=== PATIENT | male | born 1940 | race Caucasian/White ===

== ENCOUNTER → 2016-07-09 | Outpatient (CLI) | payer MEDICARE, OTHER ==
[~2016-07-09] MED LIST: ASPI-492 OR; CALCTAB25 PO; CHOL20007 PO; CILO100T OR; CLOP75TA28 OR; FURO20TA3 OR; IOHEXOL 350 MG/ML 100ML IJ ONE; MAGN400T5 PO; MULTTAB OR; OMEG120017 OR; POTA10TA34 PO; ROSU10TA16 OR
[2016-07-09 09:15] VITALS: BP 199/97
[2016-07-09 09:50] VITALS: BP 181/87
== END | disposition home or self-care (01) ==
LOC: Rad HDHVI 08:54
PROVIDERS: ATTEND Internal Medicine Cardiovascular Disease
DX: M25.562 Pain in left knee (principal); I73.9 Peripheral vascular disease, unspecified; I10 Essential (primary) hypertension; I25.10 Atherosclerotic heart disease of native coronary artery without angina pectoris; R10.9 Unspecified abdominal pain
CPT/HCPCS: 73562; 75635; 96374; G0463; Q9967

== ENCOUNTER → 2016-10-22 | Outpatient (CLI) | payer MEDICARE, OTHER ==
[~2016-10-22] MED LIST changes: -IOHEXOL 350 MG/ML 100ML IJ ONE; +POTA20TA53 PO
[2016-10-22 08:25] VITALS: BP 162/94
[2016-10-22 09:00] VITALS: BP 161/90
[2016-10-22 12:13] LABS: Basophils # (auto) 0 uL; Basophils % (auto) 0.6 % (0.0-2.0); Eosinophils # (auto) 0.1 uL; Eosinophils % (auto) 2.4 % (0.0-7.0); Hematocrit 43.4 % (41.0-53.0); Hemoglobin 14.3 g/dL (13.5-17.5); Lymphocytes # (auto) 0.7 uL; Lymphocytes % (auto) 11.1 % (10.0-50.0); Mean Corpuscular Hemoglobin 29.2 pg (28.0-32.0); Mean Corpuscular Hgb Conc. 32.9 g/dL (32.0-36.0); Mean Corpuscular Volume 88.8 fL (80.0-100.0); Mean Platelet Volume 8.2 fL (7.4-10.4); Monocytes # (auto) 0.4 uL; Monocytes % (auto) 6.8 % (0.0-12.0); Neutrophils # (auto) 4.9 uL; Neutrophils % (auto) 79.1 % (37.0-80.0); Platelet Count (auto) 185 10^3/uL (140-450); Red Cell Distribution Width 14.6 % (11.6-16.0); White Blood Cell 6.2 10^3/uL (4.4-10.8)
[2016-10-22 12:18] LABS: INR 0.98 (0.9-1.15); Partial Thromboplastin Time 29.3 sec (22.64-33.71); Prothrombin Time 10.7 sec (9.37-12.3)
[2016-10-22 12:38] LABS: BUN/Creatinine Ratio 36.9; Calcium 7.9 mg/dL (8.5-10.1)
== END | disposition home or self-care (01) ==
LOC: Rad HDHVI 08:04
PROVIDERS: ATTEND Internal Medicine Cardiovascular Disease
DX: I10 Essential (primary) hypertension (principal); D64.9 Anemia, unspecified; R79.1 Abnormal coagulation profile; Z01.812 Encounter for preprocedural laboratory examination
CPT/HCPCS: 36415; 71020; 80048; 85025; 85610; 85730; 93005; G0463

== ENCOUNTER 2016-10-23 09:01 | Day surgery (SDC) | payer MEDICARE, OTHER ==
[~2016-10-23 09:01] MED LIST changes: -ASPI-492 OR; -CILO100T OR; -POTA20TA53 PO
[2016-10-23] MEDS ORDERED: LIDOCAINE 2%HCL (LOCAL ANESTH.) INJ 20ML MDV ONE (09:56)
[2016-10-23] MEDS ORDERED: IOHEXOL 350 MG/ML 100ML IJ ONE (09:56)
[2016-10-23] MEDS ORDERED: ANGIOMAX 250 MG VIAL IV ONE (10:35)
[2016-10-23] MEDS ORDERED: fentaNYL CITRATE 100 MCG/2 ML VL ONE (10:36)
[2016-10-23] MEDS ORDERED: SODIUM CHL 0.9% 0 ML ONE (10:36)
[2016-10-23] MEDS ORDERED: MIDAZOLAM HCL 1MG/1ML-2 ML VIAL ONE (10:36)
[2016-10-23] MEDS ORDERED: PRASUGREL HCL 10 MG TAB ONE (10:58)
[2016-10-23] MEDS ORDERED: PRASUGREL HCL 10 MG TAB PO ONE (11:30)
[2016-10-23] MEDS ORDERED: cloNIDine HCL 0.1 MG TAB PO PRN (11:30)
== END 2016-10-23 13:30 | disposition home or self-care (01) ==
LOC: CATH 09:01
PROVIDERS: ATTEND Internal Medicine Cardiovascular Disease
DX: I25.10 Atherosclerotic heart disease of native coronary artery without angina pectoris (principal); Z95.1 Presence of aortocoronary bypass graft; I73.9 Peripheral vascular disease, unspecified; I20.9 Angina pectoris, unspecified; Z87.891 Personal history of nicotine dependence
CPT/HCPCS: 36247; 75716; C1760; C1769; C1887; C1894; J1644; J2250; J3010; J7030; Q9967; 93458; 99152

== ENCOUNTER → 2017-03-31 | Outpatient (CLI) | payer MEDICARE, OTHER | END | disposition home or self-care (01) | LOC: Rad HDHVI 07:57 | PROVIDERS: ATTEND Internal Medicine Cardiovascular Disease | DX: I08.2 Rheumatic disorders of both aortic and tricuspid valves (principal); I70.0 Atherosclerosis of aorta | CPT/HCPCS: 93306 ==

== ENCOUNTER → 2017-08-25 | Outpatient (CLI) | payer MEDICARE, OTHER | END | disposition home or self-care (01) | LOC: Rad HDHVI 08:23 | PROVIDERS: ATTEND Internal Medicine Cardiovascular Disease | DX: I65.23 Occlusion and stenosis of bilateral carotid arteries (principal); R07.89 Other chest pain | CPT/HCPCS: 93880 ==

== ENCOUNTER → 2017-09-03 | Outpatient (CLI) | payer MEDICARE, OTHER ==
[~2017-09-03] VITALS: Ht 182.9 cm; Wt 54.4 kg
[2017-09-03 12:09] LABS: Basophils # (auto) 0 uL; Basophils % (auto) 0.6 % (0.0-2.0); Eosinophils # (auto) 0.2 uL; Eosinophils % (auto) 3.1 % (0.0-7.0); Hematocrit 47.9 % (41.0-53.0); Hemoglobin 15.4 g/dL (13.5-17.5); Lymphocytes # (auto) 0.6 uL; Lymphocytes % (auto) 12.8 % (10.0-50.0); Mean Corpuscular Hemoglobin 28.7 pg (28.0-32.0); Mean Corpuscular Hgb Conc. 32.2 g/dL (32.0-36.0); Monocytes # (auto) 0.5 uL; Neutrophils # (auto) 3.7 uL; Neutrophils % (auto) 73.5 % (37.0-80.0); Nucleated Red Blood Cells % 0.1 %; Platelet Count (auto) 165 10^3/uL (140-450); Red Blood Cells 5.38 10^6/uL (4.5-5.90); Red Cell Distribution Width 15.5 % (11.8-14.3)
[2017-09-03 12:11] LABS: Urine Blood Negative /uL (Negative); Urine Specific Gravity 1.015 (1.001-1.035)
[2017-09-03 12:24] LABS: Albumin 3.9 g/dL (3.4-5.0); BUN/Creatinine Ratio 15.7; Bilirubin, Total 0.6 mg/dL (0.2-1.0); Calcium 8.5 mg/dL (8.5-10.1); Total Protein 7.2 g/dL (6.4-8.2)
[2017-09-03 12:28] LABS: Prostate Specific Antigen 2.16 ng/mL (0.0-4.0)
== END | disposition home or self-care (01) ==
LOC: Rad HDHVI 07:48
PROVIDERS: ATTEND Internal Medicine Cardiovascular Disease
DX: M17.0 Bilateral primary osteoarthritis of knee (principal); E78.5 Hyperlipidemia, unspecified; D64.9 Anemia, unspecified; I10 Essential (primary) hypertension; E03.9 Hypothyroidism, unspecified; E11.9 Type 2 diabetes mellitus without complications; E55.9 Vitamin D deficiency, unspecified; R53.81 Other malaise; R97.20 Elevated prostate specific antigen [PSA]; D51.9 Vitamin B12 deficiency anemia, unspecified; N39.0 Urinary tract infection, site not specified
CPT/HCPCS: 36415; 78452; 80053; 80061; 81003; 82306; 82607; 83036; 84153; 84403; 84439; 84443; 85025; 93017; 96374; A9500

== ENCOUNTER → 2017-10-08 | Outpatient (CLI) | payer MEDICARE, OTHER ==
[2017-10-08 14:30] VITALS: BP 110/68
[2017-10-08 15:00] VITALS: BP 110/68
== END | disposition home or self-care (01) ==
LOC: CHF HDHVI 14:44
PROVIDERS: ATTEND Internal Medicine Cardiovascular Disease
DX: E78.5 Hyperlipidemia, unspecified (principal); E11.9 Type 2 diabetes mellitus without complications; I10 Essential (primary) hypertension; E03.9 Hypothyroidism, unspecified; I65.23 Occlusion and stenosis of bilateral carotid arteries; I25.119 Atherosclerotic heart disease of native coronary artery with unspecified angina pectoris; Z87.891 Personal history of nicotine dependence; Z95.1 Presence of aortocoronary bypass graft
CPT/HCPCS: 96372; G0463

== ENCOUNTER → 2017-12-30 | Outpatient (CLI) | payer MEDICARE, OTHER ==
[~2017-12-30] MED LIST changes: +LOSA25TA9 PO; -POTA10TA34 PO; +POTA1TAB61 PO
[2017-12-30 09:10] VITALS: BP 119/68
[2017-12-30 09:40] VITALS: BP 127/71
[2017-12-30 12:29] LABS: Basophils # (auto) 0 uL; Basophils % (auto) 0.7 % (0.0-2.0); Eosinophils # (auto) 0.1 uL; Eosinophils % (auto) 2.5 % (0.0-7.0); Hematocrit 38.8 % (41.0-53.0); Hemoglobin 12.8 g/dL (13.5-17.5); Lymphocytes # (auto) 0.6 uL; Lymphocytes % (auto) 10.7 % (10.0-50.0); Mean Corpuscular Volume 90.9 fL (80.0-100.0); Monocytes # (auto) 0.6 uL; Monocytes % (auto) 10.8 % (0.0-12.0); Neutrophils # (auto) 4.1 uL; Neutrophils % (auto) 75.3 % (37.0-80.0); Nucleated Red Blood Cells % 0.1 %; Platelet Count (auto) 150 10^3/uL (140-450); Red Blood Cells 4.27 10^6/uL (4.5-5.90); Red Cell Distribution Width 14.8 % (11.8-14.3); White Blood Cell 5.5 10^3/uL (4.4-10.8)
[2017-12-30 12:42] LABS: BUN/Creatinine Ratio 32.6; Calcium 8.1 mg/dL (8.5-10.1); Potassium 4.2 mmol/L (3.5-5.1)
[2017-12-30 12:48] LABS: Partial Thromboplastin Time 29.5 sec (23.78-33.04); Prothrombin Time 10.7 sec (9.27-12.13)
== END | disposition home or self-care (01) ==
LOC: Rad HDHVI 08:54
PROVIDERS: ATTEND Internal Medicine Cardiovascular Disease
DX: Z01.818 Encounter for other preprocedural examination (principal); I73.9 Peripheral vascular disease, unspecified; I25.10 Atherosclerotic heart disease of native coronary artery without angina pectoris; D64.9 Anemia, unspecified; R79.1 Abnormal coagulation profile; I10 Essential (primary) hypertension; E11.9 Type 2 diabetes mellitus without complications; E03.9 Hypothyroidism, unspecified; E78.5 Hyperlipidemia, unspecified; Z87.891 Personal history of nicotine dependence
CPT/HCPCS: 36415; 71046; 80048; 85025; 85610; 85730; 93005; G0463

== ENCOUNTER 2017-12-31 06:55 | Day surgery (SDC) | payer MEDICARE, OTHER ==
[~2017-12-31] VITALS: Ht 185.4 cm; Wt 92.5 kg
[2017-12-31] MEDS ORDERED: LIDOCAINE 2%HCL (LOCAL ANESTH.) INJ 10ml MDV ONE (08:48)
[2017-12-31] MEDS ORDERED: IODIXANOL 320MG/ML 100ML BTL IV ONE (08:48)
[2017-12-31] MEDS ORDERED: fentaNYL CITRATE 100 MCG/2 ML VL ONE (09:13)
[2017-12-31] MEDS ORDERED: ANGIOMAX 250 MG VIAL IV ONE (09:13)
[2017-12-31] MEDS ORDERED: MIDAZOLAM HCL 1MG/1ML-2 ML VIAL ONE (09:14)
[2017-12-31] MEDS ORDERED: SODIUM CHL 0.9% 0 ML ONE (09:14)
[2017-12-31] MEDS ORDERED: VERAPAMIL 2.5MG/ML INJ 2ML VIAL IV ONE (09:19)
== END 2017-12-31 11:45 | disposition home or self-care (01) ==
LOC: CATH 06:55
PROVIDERS: ATTEND Internal Medicine Cardiovascular Disease
DX: I25.119 Atherosclerotic heart disease of native coronary artery with unspecified angina pectoris (principal); I10 Essential (primary) hypertension; E78.5 Hyperlipidemia, unspecified; I73.9 Peripheral vascular disease, unspecified; Z79.899 Other long term (current) drug therapy; Z95.1 Presence of aortocoronary bypass graft; Z87.891 Personal history of nicotine dependence; Z82.61 Family history of arthritis; Z82.49 Family history of ischemic heart disease and other diseases of the circulatory system; Z98.61 Coronary angioplasty status; Z84.1 Family history of disorders of kidney and ureter
CPT/HCPCS: 93459; C1769; C1894; J1644; J2001; J2250; J3010; J7030; Q9967; 99152; 99153; A6257

== ENCOUNTER → 2018-02-02 | Outpatient (CLI) | payer MEDICARE, BC ==
[~2018-02-02] MED LIST changes: +LOSA25TA40 PO; -LOSA25TA9 PO
[2018-02-02 13:03] LABS: Calcium 8.6 mg/dL (8.5-10.1); Potassium 4.2 mmol/L (3.5-5.1)
== END | disposition home or self-care (01) ==
LOC: Rad HDHVI 09:06
PROVIDERS: ATTEND Internal Medicine Cardiovascular Disease
DX: I10 Essential (primary) hypertension (principal); R22.43 Localized swelling, mass and lump, lower limb, bilateral
CPT/HCPCS: 36415; 80048; 93926; 93970

== ENCOUNTER → 2018-05-05 | Outpatient (CLI) | payer MEDICARE, BC ==
[~2018-05-05] MED LIST changes: +FUROSEMIDE 100 MG/10ML VIAL IV ONE; +FUROSEMIDE 40 MG/4 ML VIAL ONE; +POTASSIUM CHL 10 Meq TABLET PO ONE; +POTASSIUM CHL 20 Meq TABLET PO ONE
[2018-05-05 11:10] VITALS: BP 128/68
[2018-05-05 11:24] VITALS: BP 103/67
== END | disposition home or self-care (01) ==
LOC: CHF HDHVI 11:06
PROVIDERS: ATTEND Internal Medicine Cardiovascular Disease
DX: I11.0 Hypertensive heart disease with heart failure (principal); I50.32 Chronic diastolic (congestive) heart failure; I25.119 Atherosclerotic heart disease of native coronary artery with unspecified angina pectoris; E78.5 Hyperlipidemia, unspecified; E03.9 Hypothyroidism, unspecified; E11.9 Type 2 diabetes mellitus without complications; I65.23 Occlusion and stenosis of bilateral carotid arteries; M17.0 Bilateral primary osteoarthritis of knee; E78.00 Pure hypercholesterolemia, unspecified; Z87.440 Personal history of urinary (tract) infections; Z87.442 Personal history of urinary calculi; Z98.61 Coronary angioplasty status; Z86.73 Personal history of transient ischemic attack (TIA), and cerebral infarction without residual deficits; Z79.899 Other long term (current) drug therapy; Z87.891 Personal history of nicotine dependence; Z95.1 Presence of aortocoronary bypass graft
CPT/HCPCS: 96374; G0463; J1940

== ENCOUNTER → 2018-08-23 | Outpatient (CLI) | payer MEDICARE, BC ==
[~2018-08-23] MED LIST changes: -FUROSEMIDE 100 MG/10ML VIAL IV ONE; -FUROSEMIDE 40 MG/4 ML VIAL ONE; -POTASSIUM CHL 10 Meq TABLET PO ONE; -POTASSIUM CHL 20 Meq TABLET PO ONE
== END | disposition home or self-care (01) ==
LOC: Rad HDHVI 09:59
PROVIDERS: ATTEND Internal Medicine Cardiovascular Disease
DX: I08.3 Combined rheumatic disorders of mitral, aortic and tricuspid valves (principal); I25.5 Ischemic cardiomyopathy; I50.23 Acute on chronic systolic (congestive) heart failure
CPT/HCPCS: 93306

== ENCOUNTER → 2018-08-30 | Outpatient (CLI) | payer MEDICARE, BC ==
[~2018-08-30] VITALS: Ht 182.9 cm; Wt 89.8 kg
== END | disposition home or self-care (01) ==
LOC: Rad HDHVI 09:52
PROVIDERS: ATTEND Internal Medicine Cardiovascular Disease
DX: I25.5 Ischemic cardiomyopathy (principal); E29.1 Testicular hypofunction; M25.461 Effusion, right knee; M25.462 Effusion, left knee; I73.9 Peripheral vascular disease, unspecified
CPT/HCPCS: 78452; 93017; 96374; A9500

== ENCOUNTER 2018-10-14 06:48 | Inpatient (IN) | payer MEDICARE, OTHER | END 2018-10-15 13:35 | disposition home or self-care (01) | LOC: CATH 06:48 → TELE-CENTR 12:11 | PROC: 4A023N8 Measurement of Cardiac Sampling and Pressure, Bilateral, Percutaneous Approach (ICD-10-PCS; principal; ~2018-10-14) | PROC: 02U Heart and Great Vessels, Supplement (ICD-10-PCS; ~2018-10-14) | PROC: 067 Lower Veins, Dilation (ICD-10-PCS; ~2018-10-14) | PROC: 067Y3DZ Dilation of Lower Vein with Intraluminal Device, Percutaneous Approach (ICD-10-PCS; ~2018-10-14) | PROC: B2161ZZ Fluoroscopy of Right and Left Heart using Low Osmolar Contrast (ICD-10-PCS; ~2018-10-14) | PROC: B41J1ZZ Fluoroscopy of Other Lower Arteries using Low Osmolar Contrast (ICD-10-PCS; ~2018-10-14) | DX: I25.810 Atherosclerosis of coronary artery bypass graft(s) without angina pectoris (principal); I50.22 Chronic systolic (congestive) heart failure; I73.9 Peripheral vascular disease, unspecified; I25.5 Ischemic cardiomyopathy; I11.0 Hypertensive heart disease with heart failure; E78.5 Hyperlipidemia, unspecified ==

== ENCOUNTER 2018-11-11 08:02 | Inpatient (IN) | payer MEDICARE, OTHER | END 2018-11-12 16:20 | disposition home or self-care (01) | LOC: CATH 08:02 → TELE-WESTW 08:03 | PROC: 0JH606Z Insertion of Pacemaker, Dual Chamber into Chest Subcutaneous Tissue and Fascia, Open Approach (ICD-10-PCS; principal; ~2018-11-11) | PROC: 02HK3JZ Insertion of Pacemaker Lead into Right Ventricle, Percutaneous Approach (ICD-10-PCS; ~2018-11-11) | PROC: 02H63JZ Insertion of Pacemaker Lead into Right Atrium, Percutaneous Approach (ICD-10-PCS; ~2018-11-11) | DX: I25.5 Ischemic cardiomyopathy (principal); I50.20 Unspecified systolic (congestive) heart failure; Z95.1 Presence of aortocoronary bypass graft; I11.0 Hypertensive heart disease with heart failure; E78.5 Hyperlipidemia, unspecified ==

== ENCOUNTER 2019-06-20 14:41 | Inpatient (IN) | payer MEDICARE, BC ==
[~2019-06-20] VITALS: Ht 182.9 cm; Wt 86.6 kg
[~2019-06-20 14:41] MED LIST changes: +LOSA25TA38 PO; -LOSA25TA40 PO; +MAGN400T40 PO; -MAGN400T5 PO
[2019-06-20] MEDS ORDERED: ROSU5TAB5 PO (16:48)
[2019-06-20] MEDS ORDERED: CLOP75TA41 PO (16:48)
[2019-06-20] MEDS ORDERED: TAMS1CAP25 PO (16:48)
[2019-06-20] MEDS ORDERED: TORS20TA20 PO (16:48)
[2019-06-20 17:28] VITALS: BP 98/65
[2019-06-20] MEDS ORDERED: TEMAZEPAM 15 MG CAP PO PRN (19:00)
[2019-06-20] MEDS ORDERED: DOBUTamine 1000MCG/ML 250 ML IV SCH (19:00)
[2019-06-20] MEDS ORDERED: HYDROcodone-ACET 10/325MG TAB PO PRN (19:00)
[2019-06-20] MEDS ORDERED: MORPHINE SULF INJ 2 MG/ML SYRINGE 1ML IV PRN (19:00)
[2019-06-20] MEDS ORDERED: NITROGLYCERIN 0.4 MG SL TAB SL PRN (19:00)
[2019-06-20 19:33] LABS: Basophils # (auto) 0.1 uL; Basophils % (auto) 0.8 % (0.0-2.0); Eosinophils # (auto) 0.2 uL; Eosinophils % (auto) 2.6 % (0.0-7.0); Hematocrit 39.7 % (41.0-53.0); Hemoglobin 13.4 g/dL (13.5-17.5); Lymphocytes % (auto) 15.5 % (10.0-50.0); Mean Corpuscular Hemoglobin 29.6 pg (28.0-32.0); Mean Corpuscular Hgb Conc. 33.8 g/dL (32.0-36.0); Mean Corpuscular Volume 87.6 fL (80.0-100.0); Monocytes # (auto) 0.5 uL; Neutrophils # (auto) 4.7 uL; Neutrophils % (auto) 73.1 % (37.0-80.0); Platelet Count (auto) 163 10^3/uL (140-450); Red Blood Cells 4.53 10^6/uL (4.5-5.90); Red Cell Distribution Width 13.8 % (11.8-14.3); White Blood Cell 6.4 10^3/uL (4.4-10.8)
[2019-06-20 19:49] LABS: BUN/Creatinine Ratio 25.7; Calcium 8.4 mg/dL (8.5-10.1); Potassium 3.2 mmol/L (3.5-5.1)
[2019-06-20] MEDS: FUROSEMIDE INJECTION 500 MG in D5W 5% 450 ML IV SCH (21:43)
[2019-06-20] MEDS: GABAPENTIN 300 MG CAP PO SCH (21:44)
[2019-06-20] MEDS: DOBUTamine 1000MCG/ML 250 ML IV SCH (21:44)
[2019-06-20 21:50] VITALS: BP 116/69
[2019-06-21 05:18] VITALS: BP 100/55
[2019-06-21] MEDS: DOBUTamine 1000MCG/ML 250 ML IV SCH ×2 (06:08→15:54)
[2019-06-21 09:13] VITALS: BP 100/61
[2019-06-21] MEDS: GABAPENTIN 300 MG CAP PO SCH ×2 (09:25→21:42)
[2019-06-21] MEDS: CLOPIDOGREL BISULFATE 75 MG TAB PO SCH (09:26)
[2019-06-21 13:00] VITALS: BP 107/65
[2019-06-21] MEDS ORDERED: POTASSIUM EFFERVESENT TAB 25 MEQ GT ONE (14:30)
[2019-06-21 16:01] LABS: Calcium 8.5 mg/dL (8.5-10.1); Potassium 3.6 mmol/L (3.5-5.1)
[2019-06-21 16:03] LABS: BUN/Creatinine Ratio 20.7
[2019-06-21 17:12] VITALS: BP 107/70
[2019-06-21] MEDS: FUROSEMIDE INJECTION 500 MG in D5W 5% 450 ML IV SCH (19:05)
[2019-06-21 22:00] VITALS: BP 107/64
[2019-06-22] MEDS: DOBUTamine 1000MCG/ML 250 ML IV SCH ×3 (00:52→19:06)
[2019-06-22 05:35] VITALS: BP 110/60
[2019-06-22 07:11] LABS: BUN/Creatinine Ratio 16.5; Calcium 8.8 mg/dL (8.5-10.1)
[2019-06-22] MEDS ORDERED: POTASSIUM CHL 20 Meq TABLET PO ONE (08:15)
[2019-06-22 09:00] VITALS: BP 120/76
[2019-06-22] MEDS: CLOPIDOGREL BISULFATE 75 MG TAB PO SCH (09:41)
[2019-06-22] MEDS: GABAPENTIN 300 MG CAP PO SCH ×2 (09:41→22:00)
[2019-06-22 13:00] VITALS: BP_SYST 116; BP_SYST 120; BP_DIAS 70; BP_DIAS 76
[2019-06-22 17:00] VITALS: BP 130/72
[2019-06-22] MEDS: FUROSEMIDE INJECTION 500 MG in D5W 5% 450 ML IV SCH (18:47)
[2019-06-22 22:00] VITALS: BP 118/62
[2019-06-23] MEDS: GABAPENTIN 300 MG CAP PO SCH ×3 (02:02→20:56)
[2019-06-23 05:00] VITALS: BP 120/69
[2019-06-23] MEDS: DOBUTamine 1000MCG/ML 250 ML IV SCH (05:57)
[2019-06-23 08:35] LABS: Albumin 3.9 g/dL (3.4-5.0); BUN/Creatinine Ratio 18.4; Calcium 8.4 mg/dL (8.5-10.1)
[2019-06-23 08:37] LABS: Bilirubin, Total 0.9 mg/dL (0.2-1.0); Total Protein 7.9 g/dL (6.4-8.2)
[2019-06-23] MEDS: CLOPIDOGREL BISULFATE 75 MG TAB PO SCH (08:53)
[2019-06-23 09:00] VITALS: BP 123/77
[2019-06-23 12:56] VITALS: BP 88/70
[2019-06-23] MEDS ORDERED: POTASSIUM EFFERVESENT TAB 25 MEQ PO ONE (16:30)
[2019-06-23 17:04] VITALS: BP 112/60
[2019-06-23] MEDS: FUROSEMIDE INJECTION 500 MG in D5W 5% 450 ML IV SCH (17:42)
[2019-06-23 20:00] VITALS: BP 112/60
[2019-06-23] MEDS: POTASSIUM EFFERVESENT TAB 25 MEQ PO SCH (20:56)
[2019-06-23 22:02] VITALS: BP 115/79
[2019-06-24] MEDS ORDERED: METOPROLOL SUCCINATE XL 50 MG TAB PO ONE (02:30)
[2019-06-24 05:30] VITALS: BP 100/67
[2019-06-24 09:00] VITALS: BP 106/57
[2019-06-24] MEDS: POTASSIUM EFFERVESENT TAB 25 MEQ PO SCH (09:13)
[2019-06-24] MEDS: CLOPIDOGREL BISULFATE 75 MG TAB PO SCH (09:14)
[2019-06-24] MEDS: GABAPENTIN 300 MG CAP PO SCH (09:14)
[2019-06-24] MEDS ORDERED: AMIODARONE HCL 200 MG TAB PO SCH (10:00)
[2019-06-24] MEDS ORDERED: SPIRONOLACTONE 25 MG TAB PO SCH (10:00)
[2019-06-24 12:30] VITALS: BP 86/52
[2019-06-24 13:34] VITALS: BP 133/74
== END 2019-06-24 15:30 | disposition home or self-care (01) | DRG 291 ==
LOC: CENTRAL 16:08 → TELE-CENTR 20:09
PROVIDERS: ADMIT Internal Medicine Cardiovascular Disease; ATTEND Internal Medicine Cardiovascular Disease
DX: I11.0 Hypertensive heart disease with heart failure (principal); I50.21 Acute systolic (congestive) heart failure; I48.92 Unspecified atrial flutter; D68.69 Other thrombophilia; E87.6 Hypokalemia; I48.91 Unspecified atrial fibrillation; I73.9 Peripheral vascular disease, unspecified; I27.81 Cor pulmonale (chronic); J44.9 Chronic obstructive pulmonary disease, unspecified; Z87.891 Personal history of nicotine dependence; Z95.1 Presence of aortocoronary bypass graft; Z95.810 Presence of automatic (implantable) cardiac defibrillator; I25.10 Atherosclerotic heart disease of native coronary artery without angina pectoris; E78.5 Hyperlipidemia, unspecified
CPT/HCPCS: 36415; 71045; 80048; 80053; 83880; 85025; 93005; G0378

== ENCOUNTER → 2019-07-06 | Outpatient (CLI) | payer MEDICARE, OTHER ==
[~2019-07-06] MED LIST changes: +CLOP75TA41 PO; +ROSU5TAB5 PO; +TAMS1CAP25 PO; +TORS20TA20 PO
[2019-07-06 16:18] LABS: BUN/Creatinine Ratio 15.8; Calcium 8.5 mg/dL (8.5-10.1); Potassium 3.8 mmol/L (3.5-5.1)
== END | disposition home or self-care (01) ==
LOC: LAB 15:19
PROVIDERS: ATTEND Internal Medicine Cardiovascular Disease
DX: I10 Essential (primary) hypertension (principal)
CPT/HCPCS: 36415; 80048

== ENCOUNTER → 2019-09-13 | Outpatient (CLI) | payer MEDICARE, OTHER ==
[~2019-09-13] VITALS: Ht 182.9 cm; Wt 93.0 kg
[2019-09-13 12:01] LABS: Basophils # (auto) 0 10 ^3/uL (0-0.2); Basophils % (auto) 0.4 % (0.0-2.0); Eosinophils # (auto) 0.1 10 ^3/uL (0-0.8); Eosinophils % (auto) 1.4 % (0.0-7.0); Hematocrit 43.6 % (41.0-53.0); Lymphocytes # (auto) 0.5 10 ^3/uL (0.4-5.4); Lymphocytes % (auto) 7.8 % (10.0-50.0); Mean Corpuscular Hemoglobin 28.7 pg (28.0-32.0); Mean Corpuscular Hgb Conc. 32.1 g/dL (32.0-36.0); Mean Corpuscular Volume 89.5 fL (80.0-100.0); Monocytes # (auto) 0.4 10 ^3/uL (0-1.3); Monocytes % (auto) 6.4 % (0.0-12.0); Neutrophils # (auto) 5.3 10 ^3/uL (1.6-8.6); Nucleated Red Blood Cells % 0.1 %; Platelet Count (auto) 143 10^3/uL (140-450); Red Blood Cells 4.88 10^6/uL (4.5-5.90); Red Cell Distribution Width 15.3 % (11.8-14.3); White Blood Cell 6.3 10^3/uL (4.4-10.8)
[2019-09-13 12:05] LABS: Urine Blood Negative /uL (Negative); Urine Specific Gravity 1.019 (1.001-1.035)
[2019-09-13 12:25] LABS: Albumin 3.8 g/dL (3.4-5.0); Potassium 3.6 mmol/L (3.5-5.1)
[2019-09-13 12:32] LABS: BUN/Creatinine Ratio 20.2; Bilirubin, Total 1.1 mg/dL (0.2-1.0); Calcium 8.8 mg/dL (8.5-10.1); Total Protein 7.4 g/dL (6.4-8.2)
[2019-09-13 12:35] LABS: Free T4 (Free Thyroxine) 1.77 ng/dL (0.89-1.76)
== END | disposition home or self-care (01) ==
LOC: Rad HDHVI 08:54
PROVIDERS: ATTEND Internal Medicine Cardiovascular Disease
DX: Z00.00 Encounter for general adult medical examination without abnormal findings (principal); C61 Malignant neoplasm of prostate; E11.9 Type 2 diabetes mellitus without complications; I10 Essential (primary) hypertension; I25.10 Atherosclerotic heart disease of native coronary artery without angina pectoris; K90.9 Intestinal malabsorption, unspecified; E03.9 Hypothyroidism, unspecified; E29.1 Testicular hypofunction; N39.0 Urinary tract infection, site not specified; D51.9 Vitamin B12 deficiency anemia, unspecified; R07.89 Other chest pain; Z82.49 Family history of ischemic heart disease and other diseases of the circulatory system; Z95.0 Presence of cardiac pacemaker; Z79.899 Other long term (current) drug therapy
CPT/HCPCS: 36415; 78452; 80053; 80061; 81003; 82306; 82607; 83036; 84403; 84439; 84443; 85025; 93017; 93306; 96374; A9500

== ENCOUNTER → 2019-10-31 | Outpatient (CLI) | payer MEDICARE, BC ==
[~2019-10-31] VITALS: Ht 182.9 cm; Wt 90.7 kg
[~2019-10-31] MED LIST changes: -CLOP75TA28 OR; +CLOP75TA28 PO; -FURO20TA3 OR; +FURO20TA3 PO; +GABA300C10 PO; -MULTTAB OR; +MULTTAB PO; -OMEG120017 OR; +OMEG120017 PO; -ROSU10TA16 OR; +ROSU10TA16 PO
[2019-10-31 11:30] VITALS: BP 126/79
[2019-10-31 12:00] VITALS: BP 122/76
[2019-10-31 16:00] LABS: Basophils # (auto) 0 10 ^3/uL (0-0.2); Basophils % (auto) 0.5 % (0.0-2.0); Eosinophils # (auto) 0.1 10 ^3/uL (0-0.8); Eosinophils % (auto) 1.9 % (0.0-7.0); Hematocrit 41.3 % (41.0-53.0); Hemoglobin 13.5 g/dL (13.5-17.5); Lymphocytes # (auto) 0.6 10 ^3/uL (0.4-5.4); Lymphocytes % (auto) 8.8 % (10.0-50.0); Mean Corpuscular Hemoglobin 29.2 pg (28.0-32.0); Mean Corpuscular Hgb Conc. 32.7 g/dL (32.0-36.0); Mean Corpuscular Volume 89.4 fL (80.0-100.0); Monocytes # (auto) 0.6 10 ^3/uL (0-1.3); Monocytes % (auto) 8.3 % (0.0-12.0); Neutrophils # (auto) 5.5 10 ^3/uL (1.6-8.6); Neutrophils % (auto) 80.5 % (37.0-80.0); Nucleated Red Blood Cells % 0.1 %; Platelet Count (auto) 147 10^3/uL (140-450); Red Blood Cells 4.62 10^6/uL (4.5-5.90); Red Cell Distribution Width 14.9 % (11.8-14.3); White Blood Cell 6.8 10^3/uL (4.4-10.8)
[2019-10-31 16:19] LABS: INR 1.07 (0.9-1.15); Partial Thromboplastin Time 27.7 sec (23.64-32.05)
[2019-10-31 16:45] LABS: Albumin 3.7 g/dL (3.4-5.0); Calcium 8.4 mg/dL (8.5-10.1); Potassium 4.1 mmol/L (3.5-5.1)
[2019-10-31 16:48] LABS: Bilirubin, Total 0.6 mg/dL (0.2-1.0); Total Protein 6.9 g/dL (6.4-8.2)
== END | disposition home or self-care (01) ==
LOC: Rad HDHVI 11:16
PROVIDERS: ATTEND Internal Medicine Cardiovascular Disease
DX: I70.0 Atherosclerosis of aorta (principal); Z01.812 Encounter for preprocedural laboratory examination; R05 Cough; I51.7 Cardiomegaly; Z95.1 Presence of aortocoronary bypass graft
CPT/HCPCS: 36415; 71046; 80053; 85025; 85610; 85730; 93005; G0463

== ENCOUNTER 2019-11-03 10:00 | Day surgery (SDC) | payer MEDICARE, OTHER ==
[~2019-11-03 10:00] MED LIST changes: -CLOP75TA41 PO; -LOSA25TA38 PO; +MULT-733 PO; -MULTTAB PO; -ROSU5TAB5 PO; -TORS20TA20 PO
[2019-11-03] MEDS ORDERED: MIDAZOLAM HCL 1MG/1ML-2 ML VIAL IV ONE (10:15)
[2019-11-03] MEDS ORDERED: MIDAZOLAM HCL 1MG/1ML-2 ML VIAL ONE (10:24)
[2019-11-03] MEDS ORDERED: ONDANSETRON HCL 4 MG/2 ML VIAL IV PRN (11:00)
== END 2019-11-03 11:33 | disposition home or self-care (01) ==
LOC: CATH 10:00
PROVIDERS: ATTEND Internal Medicine Cardiovascular Disease
DX: I48.91 Unspecified atrial fibrillation (principal); E78.5 Hyperlipidemia, unspecified; I73.9 Peripheral vascular disease, unspecified; I11.0 Hypertensive heart disease with heart failure; I25.810 Atherosclerosis of coronary artery bypass graft(s) without angina pectoris; I42.9 Cardiomyopathy, unspecified; E78.00 Pure hypercholesterolemia, unspecified; Z11.59 Encounter for screening for other viral diseases; Z87.891 Personal history of nicotine dependence; Z79.899 Other long term (current) drug therapy; Z95.1 Presence of aortocoronary bypass graft
CPT/HCPCS: 87635; 93312; J2250; J7040; 99152

== ENCOUNTER 2019-12-28 14:46 | Inpatient (IN) | payer MEDICARE, OTHER ==
[~2019-12-28] VITALS: Ht 182.9 cm; Wt 88.0 kg
[2019-12-28] MEDS ORDERED: FURO40TA4 PO (16:34)
[2019-12-28] MEDS ORDERED: POTA10TA32 PO (16:34)
[2019-12-28] MEDS ORDERED: ROSU1TAB12 PO (16:38)
--- NOTE | 2019-12-28 16:58 | NUR ---
New orders received and read back by MD GARZA.
[2019-12-28] MEDS ORDERED: DOBUTamine 1000MCG/ML 250 ML IV SCH ×2 (17:00→17:45)
[2019-12-28 17:53] VITALS: BP 115/62
--- NOTE | 2019-12-28 18:00 | NUR ---
MS admit from PRISCILLA BURGERSHASHI admitted to MS as direct admit. Patient oriented to alex FARLEY RN, unit, room, bed, and unit policies regarding patient care and visiting hours. Patient weighed by bedscale and encouraged to call if they need something. All questions and concerns addressed, patient verbalized understanding. Addendum: 12/28/19 at 1845 by MARTINE CAGE RN RN WRONG TIME CORRECT TIME 1700
[2019-12-28 18:06] LABS: Basophils # (auto) 0 10 ^3/uL (0-0.2); Basophils % (auto) 0.9 % (0.0-2.0); Eosinophils # (auto) 0.2 10 ^3/uL (0-0.8); Eosinophils % (auto) 4.1 % (0.0-7.0); Hematocrit 38.5 % (41.0-53.0); Hemoglobin 12.2 g/dL (13.5-17.5); Lymphocytes # (auto) 0.5 10 ^3/uL (0.4-5.4); Lymphocytes % (auto) 12.6 % (10.0-50.0); Mean Corpuscular Hemoglobin 27.4 pg (28.0-32.0); Mean Corpuscular Hgb Conc. 31.7 g/dL (32.0-36.0); Mean Corpuscular Volume 86.6 fL (80.0-100.0); Monocytes # (auto) 0.4 10 ^3/uL (0-1.3); Monocytes % (auto) 8.9 % (0.0-12.0); Neutrophils # (auto) 3.2 10 ^3/uL (1.6-8.6); Neutrophils % (auto) 73.5 % (37.0-80.0); Platelet Count (auto) 136 10^3/uL (140-450); Red Blood Cells 4.45 10^6/uL (4.5-5.90); Red Cell Distribution Width 14.8 % (11.8-14.3); White Blood Cell 4.3 10^3/uL (4.4-10.8)
[2019-12-28 18:07] LABS: Albumin 3.1 g/dL (3.4-5.0); Anion Gap 5 (5-15); Blood Urea Nitrogen 23 mg/dL (7-18); Calcium 8.1 mg/dL (8.5-10.1); Carbon Dioxide 30 mmol/L (21-32); Chloride 106 mmol/L (98-107); Glucose 101 mg/dL (74-106); Potassium 3.6 mmol/L (3.5-5.1); Sodium 141 mmol/L (136-145)
[2019-12-28 18:09] LABS: Alanine Aminotransferase 17 U/L (16-61); Aspartate Aminotransferase 18 U/L (15-37); BUN/Creatinine Ratio 16.5; GFR African American 63 mL/min; GFR Non-African American 52 mL/min
[2019-12-28 18:10] LABS: Alkaline Phosphatase 99 U/L (45-117); Bilirubin, Total 0.5 mg/dL (0.2-1.0); Total Protein 6.8 g/dL (6.4-8.2)
[2019-12-28] MEDS: TAMSULOSIN HYDROCHLORIDE 0.4 MG CAP PO SCH (18:14)
--- NOTE | 2019-12-28 18:45 | NUR ---
IV insertion IV access obtained, via clean sterile technique by inserting 22 gauge catheter at LFA after 2 attempts. IV secured properly. No trauma to site. Patient tolerated well.
[2019-12-28] MEDS: FUROSEMIDE INJECTION 100 MG in SODIUM CHL 0.9% 100 ML IV SCH ×2 (19:02→22:00)
--- NOTE | 2019-12-28 19:40 | NUR ---
OPENING SHIFT NOTE Assumed care of patient who is A&O x4. Currently on RA with no s/s of distress. Reports 3/10 pain to bilateral lower extremities. Decline pain management options at this time, stating, "I'm so used to this, I hardly even notice it". PIV in left forearm is intact and patent. Currently infusing Lasix as ordered. Patient is ambulatory at baseline without the use of assistive devices. POC discussed and patient verbalizes understanding. Bed is in low locked position with side rails up x2. Call light is within reach and patient encouraged to call for assistance when needed. Will continue to monitor for changes PRN.
[2019-12-28 20:00] VITALS: BP 144/72
--- NOTE | 2019-12-28 20:30 | NUR ---
IV insertion IV access obtained, via clean sterile technique by inserting 22 gauge catheter at left forearm after 1 attempt. IV secured properly. No trauma to site. Patient tolerated well. Additional IV access obtained, via clean sterile technique by inserting 22 gauge catheter at right forearm after 1 attempt. IV secured properly. No trauma to site. Patient tolerated well.
[2019-12-28 22:00] VITALS: BP 144/72
[2019-12-28] MEDS: POTASSIUM CHL 20 Meq TABLET PO SCH (22:00)
[2019-12-28] MEDS: ceFAZolin 1GM 2 GM in D5W 5% 100 ML IV SCH (22:00)
[2019-12-28] MEDS ORDERED: FUROSEMIDE 40 MG TAB PO SCH (22:00)
--- NOTE | 2019-12-28 23:30 | NUR ---
Patient c/o 610 non-radiating mid chest tightness. HR is 113, BP: 124/68 Spo2 99%. ECG performed. Dr Diamond notified and given copy of ECG.
--- NOTE | 2019-12-28 23:33 | NUR ---
MD CONTACT Received call back from Dr. Diamond. New orders received to upgrade to Telemetry, stop Dobutamine drip and initiate Heparin drip at 900 units per hour, 3000 unit bolus and heparin protocol. Will follow thorough.
[2019-12-28] MEDS ORDERED: HEPARIN DRIP/D5W 100UNITS/ML 250 ML IV SCH (23:37)
[2019-12-28] MEDS ORDERED: HEPARIN SODIUM (PORCINE) 5000 UNITS/ML 1ML VIAL IV ONE (23:45)
--- NOTE | 2019-12-29 | NUR ---
Telemetry admit from SHASHI MOODY admitted to Telemetry unit after SBAR received. Patient oriented to HALEY HURST RN primary RN, unit, room, bed, and unit policies regarding patient care and visiting hours. Patient now on continuous telemetry monitoring, tele box # [id number] and telemetry reading on arrival to unit is Sinus Rhythm at 90BPM. Patient placed on bedside oxygen, weighed by bedscale and encouraged to call if they need something. All questions and concerns addressed, patient verbalized understanding. Addendum: 12/29/19 at 0445 by HALEY HURST RN RN wrong patient Addendum: 12/29/19 at 0804 by HALEY HURST RN RN WRONG PATIENT
[2019-12-29 00:33] LABS: Basophils # (auto) 0.1 10 ^3/uL (0-0.2); Eosinophils # (auto) 0.2 10 ^3/uL (0-0.8); Eosinophils % (auto) 4.4 % (0.0-7.0); Hemoglobin 12.6 g/dL (13.5-17.5); Lymphocytes # (auto) 0.4 10 ^3/uL (0.4-5.4); Lymphocytes % (auto) 8.7 % (10.0-50.0); Mean Corpuscular Hemoglobin 27.1 pg (28.0-32.0); Mean Corpuscular Hgb Conc. 31.4 g/dL (32.0-36.0); Mean Corpuscular Volume 86.3 fL (80.0-100.0); Monocytes # (auto) 0.3 10 ^3/uL (0-1.3); Monocytes % (auto) 7.2 % (0.0-12.0); Neutrophils # (auto) 3.5 10 ^3/uL (1.6-8.6); Neutrophils % (auto) 77.7 % (37.0-80.0); Nucleated Red Blood Cells % 0.1 %; Platelet Count (auto) 138 10^3/uL (140-450); Red Blood Cells 4.64 10^6/uL (4.5-5.90); Red Cell Distribution Width 14.4 % (11.8-14.3); White Blood Cell 4.5 10^3/uL (4.4-10.8)
--- NOTE | 2019-12-29 00:48 | NUR ---
Report give to ELVIA Berrios who will assume care.
--- NOTE | 2019-12-29 00:48 | NUR ---
Received report from ELVIA Zapata.
[2019-12-29 01:03] LABS: INR 1.11 (0.9-1.15); Partial Thromboplastin Time 27.4 sec (23.0-31.2)
--- NOTE | 2019-12-29 02:01 | NUR ---
Heparin drip started at 900units/hour (9ml/hour). Will monitor
[2019-12-29 05:00] VITALS: BP 97/58
[2019-12-29] MEDS: FUROSEMIDE INJECTION 100 MG in SODIUM CHL 0.9% 100 ML IV SCH ×5 (05:06→23:40)
[2019-12-29] MEDS: ceFAZolin 1GM 2 GM in D5W 5% 100 ML IV SCH ×3 (05:17→23:39)
[2019-12-29] MEDS: POTASSIUM CHL 20 Meq TABLET PO SCH ×3 (05:18→23:39)
[2019-12-29 07:17] LABS: Basophils # (auto) 0 10 ^3/uL (0-0.2); Basophils % (auto) 0.8 % (0.0-2.0); Eosinophils # (auto) 0.2 10 ^3/uL (0-0.8); Eosinophils % (auto) 3.3 % (0.0-7.0); Hematocrit 42.4 % (41.0-53.0); Hemoglobin 13.5 g/dL (13.5-17.5); Lymphocytes # (auto) 0.4 10 ^3/uL (0.4-5.4); Lymphocytes % (auto) 7.5 % (10.0-50.0); Mean Corpuscular Hgb Conc. 31.9 g/dL (32.0-36.0); Mean Corpuscular Volume 87.8 fL (80.0-100.0); Monocytes # (auto) 0.4 10 ^3/uL (0-1.3); Monocytes % (auto) 7.8 % (0.0-12.0); Neutrophils # (auto) 4.1 10 ^3/uL (1.6-8.6); Neutrophils % (auto) 80.6 % (37.0-80.0); Nucleated Red Blood Cells % 0.1 %; Platelet Count (auto) 136 10^3/uL (140-450); Red Blood Cells 4.84 10^6/uL (4.5-5.90); Red Cell Distribution Width 14.7 % (11.8-14.3)
--- NOTE | 2019-12-29 07:30 | NUR ---
Ancef upon recieving report noted ancef did not infuse, antibiotic restarted pharmacy made aware
--- NOTE | 2019-12-29 07:30 | NUR ---
Lasix Drip Upon receiving report from WILL RN noted lasix drip not infusing, restarted and notified pharmacy
--- NOTE | 2019-12-29 07:30 | NUR ---
HEPARIN DRIP upon receiving report noted no recent blood draw for ptt monitoring for heparin drip, current drip rate never adjusted per protocol, ordered stat lab draw at 0730, lab called, they used previously draw blood from 0630, results in aptt 31.2 called pharmacy to report results, per protocol drip changed to 1200units increased by 3ml/hr and pharmacy wanted MD to be notified regarding the bolus. MD dawkins notified of result, per MD no Bolus of heparin and just increase the rate, Pharmacy made aware adjusted order
--- NOTE | 2019-12-29 07:30 | NUR ---
Opening Shift Note Assumed care of patient, awake and alert. No S/S of distress/SOB or pain. Instructed on POC and to call for assist PRN, will continue to monitor for changes Q1hr and PRN.
[2019-12-29 07:31] LABS: Potassium 3.3 mmol/L (3.5-5.1)
[2019-12-29 07:52] LABS: Albumin 3.4 g/dL (3.4-5.0); BUN/Creatinine Ratio 18.3; Bilirubin, Total 0.7 mg/dL (0.2-1.0); Calcium 8.6 mg/dL (8.5-10.1); Total Protein 7.3 g/dL (6.4-8.2)
[2019-12-29 08:00] LABS: INR 1.15 (0.9-1.15); Partial Thromboplastin Time 31.2 sec (23.0-31.2)
[2019-12-29 08:15] VITALS: BP 144/72
[2019-12-29] MEDS ORDERED: HEPARIN DRIP/D5W 100UNITS/ML 250 ML IV SCH ×2 (08:30)
[2019-12-29 09:00] VITALS: BP 93/59
[2019-12-29] MEDS: CLOPIDOGREL BISULFATE 75 MG TAB PO SCH (09:51)
[2019-12-29] MEDS: MAGNESIUM OXIDE 400 MG TAB PO SCH (09:51)
[2019-12-29] MEDS: GABAPENTIN 300 MG CAP PO SCH (09:51)
[2019-12-29] MEDS: metOLazone 5 MG TAB PO SCH (09:51)
[2019-12-29 13:00] VITALS: BP 100/70
[2019-12-29 14:55] LABS: INR 1.12 (0.9-1.15); Partial Thromboplastin Time 49.5 sec (23.0-31.2)
--- NOTE | 2019-12-29 15:20 | NUR ---
phamrmacy called with aptt 49.5 dose adjustment to 1400units, 14ml
[2019-12-29] MEDS: HEPARIN DRIP/D5W 100UNITS/ML 250 ML IV SCH ×2 (15:21→23:42)
[2019-12-29 17:00] VITALS: BP 98/57
[2019-12-29] MEDS: TAMSULOSIN HYDROCHLORIDE 0.4 MG CAP PO SCH (17:26)
--- NOTE | 2019-12-29 19:45 | NUR ---
LASIX IV SITE LEAKING AND DC'D AT THIS TIME. WILL START NEW IV.
[2019-12-29 19:54] LABS: INR 1.14 (0.9-1.15); Partial Thromboplastin Time 63.5 sec (23.0-31.2)
[2019-12-29 22:00] VITALS: BP_SYST 108; BP_DIAS 51; BP_DIAS 54
[2019-12-30 01:47] LABS: INR 1.15 (0.9-1.15); Partial Thromboplastin Time 57.7 sec (23.0-31.2)
[2019-12-30 05:00] VITALS: BP 101/61
[2019-12-30] MEDS: FUROSEMIDE INJECTION 100 MG in SODIUM CHL 0.9% 100 ML IV SCH ×4 (06:20→23:43)
[2019-12-30 06:21] LABS: Basophils # (auto) 0.1 10 ^3/uL (0-0.2); Basophils % (auto) 0.6 % (0.0-2.0); Eosinophils # (auto) 0.1 10 ^3/uL (0-0.8); Eosinophils % (auto) 1.3 % (0.0-7.0); Hematocrit 48.4 % (41.0-53.0); Hemoglobin 15.4 g/dL (13.5-17.5); Lymphocytes # (auto) 0.6 10 ^3/uL (0.4-5.4); Lymphocytes % (auto) 5.2 % (10.0-50.0); Mean Corpuscular Hemoglobin 27.7 pg (28.0-32.0); Mean Corpuscular Hgb Conc. 31.9 g/dL (32.0-36.0); Mean Corpuscular Volume 86.8 fL (80.0-100.0); Monocytes # (auto) 0.7 10 ^3/uL (0-1.3); Monocytes % (auto) 5.9 % (0.0-12.0); Neutrophils # (auto) 10.2 10 ^3/uL (1.6-8.6); Platelet Count (auto) 139 10^3/uL (140-450); Red Blood Cells 5.58 10^6/uL (4.5-5.90); Red Cell Distribution Width 14.8 % (11.8-14.3); White Blood Cell 11.8 10^3/uL (4.4-10.8)
[2019-12-30] MEDS: POTASSIUM CHL 20 Meq TABLET PO SCH ×3 (06:21→23:44)
[2019-12-30] MEDS: ceFAZolin 1GM 2 GM in D5W 5% 100 ML IV SCH ×3 (06:21→23:43)
[2019-12-30 06:25] LABS: Albumin 3.9 g/dL (3.4-5.0); Calcium 9.2 mg/dL (8.5-10.1); Potassium 3.1 mmol/L (3.5-5.1)
[2019-12-30 06:31] LABS: BUN/Creatinine Ratio 19.9; Bilirubin, Total 0.8 mg/dL (0.2-1.0)
[2019-12-30 06:35] LABS: INR 1.19 (0.9-1.15); Partial Thromboplastin Time 61.3 sec (23.0-31.2)
[2019-12-30] MEDS ORDERED: LIDOCAINE 2%HCL (LOCAL ANESTH.) INJ 20ML MDV ONE (07:38)
[2019-12-30] MEDS ORDERED: IOHEXOL 350 MG/ML 100ML IJ ONE (07:38)
--- NOTE | 2019-12-30 07:45 | NUR ---
Opening Shift Note Assumed care of patient, awake and alert. No S/S of distress/SOB or pain. Instructed on POC and to call for assist PRN, will continue to monitor for changes Q1hr and PRN. NPO to be maintained for procedure.
--- NOTE | 2019-12-30 07:55 | NUR ---
Off Unit Patient taken to label cutter for procedure.
[2019-12-30] MEDS ORDERED: fentaNYL CITRATE 100 MCG/2 ML VL ONE (08:59)
[2019-12-30] MEDS ORDERED: ANGIOMAX 250 MG VIAL IV ONE (08:59)
[2019-12-30] MEDS ORDERED: SODIUM CHL 0.9% 0 ML ONE (09:00)
[2019-12-30] MEDS ORDERED: MIDAZOLAM HCL 1MG/1ML-2 ML VIAL ONE (09:00)
[2019-12-30] MEDS ORDERED: POTASSIUM CHL 20 Meq TABLET PO ONE (09:45)
--- NOTE | 2019-12-30 10:15 | NUR ---
On Unit Patient returned to unit after having left heart cath done. Patient is awake but drowsy. No complaints signs of SOB or pain. Dressing to right groin dry and intact. Bed alarm on for safety. Call light placed within reach and patient encouraged to call for assistance. Patient to lie flat until 11:30am. Patient is aware. Will continue to monitor.
[2019-12-30] MEDS: CLOPIDOGREL BISULFATE 75 MG TAB PO SCH (10:20)
[2019-12-30] MEDS: GABAPENTIN 300 MG CAP PO SCH (10:20)
[2019-12-30] MEDS: MAGNESIUM OXIDE 400 MG TAB PO SCH (10:20)
[2019-12-30] MEDS: metOLazone 5 MG TAB PO SCH (10:21)
[2019-12-30] MEDS: DOBUTamine 1000MCG/ML 250 ML IV SCH (11:19)
--- NOTE | 2019-12-30 11:31 | NUR ---
May ambulate Right Groin assessed, area soft and no bleeding noted. No complaints of pain at this time.
--- NOTE | 2019-12-30 12:30 | NUR ---
Off Unit Patient taken to cath lab tech for RAFAELA.
[2019-12-30] MEDS ORDERED: MIDAZOLAM HCL 1MG/1ML-2 ML VIAL IV ONE (12:45)
[2019-12-30] MEDS ORDERED: fentaNYL CITRATE 100 MCG/2 ML VL IV ONE (12:45)
[2019-12-30 13:00] VITALS: BP 80/61
--- NOTE | 2019-12-30 15:00 | NUR ---
On Unit Patient brought back to unit from laborer demolition after having RAFAELA done. Patient is awake and alert, breathing comfortably on room air. Bed alarm on for safety and call light placed within reach. Patient encouraged to call for assistance. Will continue to monitor.
--- NOTE | 2019-12-30 16:50 | NUR ---
Heparin Heparin continuous infusion is finished at this time. The next date scheduled is 12/30 at 0341. Contacted pharmacy regarding adjusting the date, however I was told by the pharmacist (Emelyn) that I should just scan in medication as it is continuous and there is no need for a change.
[2019-12-30 17:19] VITALS: BP 107/57
[2019-12-30] MEDS: HEPARIN DRIP/D5W 100UNITS/ML 250 ML IV SCH (17:58)
[2019-12-30] MEDS: TAMSULOSIN HYDROCHLORIDE 0.4 MG CAP PO SCH (18:05)
[2019-12-30 22:39] VITALS: BP 92/60
[2019-12-31] MEDS: DOBUTamine 1000MCG/ML 250 ML IV SCH ×2 (03:51→10:11)
[2019-12-31] MEDS: FUROSEMIDE INJECTION 100 MG in SODIUM CHL 0.9% 100 ML IV SCH ×6 (05:00→22:32)
[2019-12-31 05:16] LABS: Basophils # (auto) 0 10 ^3/uL (0-0.2); Basophils % (auto) 0.6 % (0.0-2.0); Eosinophils # (auto) 0.1 10 ^3/uL (0-0.8); Eosinophils % (auto) 0.7 % (0.0-7.0); Hematocrit 47.5 % (41.0-53.0); Hemoglobin 15.3 g/dL (13.5-17.5); Lymphocytes # (auto) 0.5 10 ^3/uL (0.4-5.4); Lymphocytes % (auto) 5.4 % (10.0-50.0); Mean Corpuscular Hemoglobin 27.3 pg (28.0-32.0); Mean Corpuscular Hgb Conc. 32.3 g/dL (32.0-36.0); Mean Corpuscular Volume 84.5 fL (80.0-100.0); Monocytes # (auto) 0.6 10 ^3/uL (0-1.3); Monocytes % (auto) 7.2 % (0.0-12.0); Neutrophils # (auto) 7.5 10 ^3/uL (1.6-8.6); Neutrophils % (auto) 86.1 % (37.0-80.0); Nucleated Red Blood Cells % 0.1 %; Platelet Count (auto) 119 10^3/uL (140-450); Red Blood Cells 5.61 10^6/uL (4.5-5.90); Red Cell Distribution Width 14.6 % (11.8-14.3); White Blood Cell 8.7 10^3/uL (4.4-10.8)
[2019-12-31 05:28] VITALS: BP 94/59
[2019-12-31 05:28] LABS: INR 1.1 (0.9-1.15); Partial Thromboplastin Time 26.8 sec (23.0-31.2)
[2019-12-31 05:30] LABS: Albumin 3.9 g/dL (3.4-5.0); Potassium 3.1 mmol/L (3.5-5.1)
[2019-12-31 05:34] LABS: BUN/Creatinine Ratio 23.1; Bilirubin, Total 0.8 mg/dL (0.2-1.0); Total Protein 8.3 g/dL (6.4-8.2)
[2019-12-31] MEDS: ceFAZolin 1GM 2 GM in D5W 5% 100 ML IV SCH ×3 (06:00→22:32)
[2019-12-31] MEDS: POTASSIUM CHL 20 Meq TABLET PO SCH ×3 (06:59→22:32)
[2019-12-31 09:00] VITALS: BP 93/58
[2019-12-31] MEDS: MAGNESIUM OXIDE 400 MG TAB PO SCH (09:32)
[2019-12-31] MEDS: GABAPENTIN 300 MG CAP PO SCH (09:32)
[2019-12-31] MEDS: CLOPIDOGREL BISULFATE 75 MG TAB PO SCH (09:32)
[2019-12-31] MEDS: metOLazone 5 MG TAB PO SCH (09:33)
[2019-12-31 13:00] VITALS: BP 106/70
[2019-12-31 17:00] VITALS: BP 90/59
[2019-12-31] MEDS: TAMSULOSIN HYDROCHLORIDE 0.4 MG CAP PO SCH (18:24)
[2019-12-31 21:43] VITALS: BP 99/60
[2020-01-01 04:43] VITALS: BP 89/57
[2020-01-01] MEDS: FUROSEMIDE INJECTION 100 MG in SODIUM CHL 0.9% 100 ML IV SCH ×5 (05:50→20:59)
[2020-01-01] MEDS: ceFAZolin 1GM 2 GM in D5W 5% 100 ML IV SCH ×3 (05:52→22:35)
[2020-01-01] MEDS: POTASSIUM CHL 20 Meq TABLET PO SCH ×3 (05:56→22:35)
--- NOTE | 2020-01-01 08:00 | NUR ---
OPENING SHIFT NOTE ASSUMED CARE OF PATIENT AWAKE AND ALERT. NO S/S OF DISTRESS NOTED OR COMPLAINTS OF PAIN. PATIENT UPDATED ON POC FOR THE DAY AND ALL QUESTION ANSWERED. BED IS IN LOWEST, LOCKED POSITION WITH SIDE RAILS UP X2 AND CALL LIGHT WITHIN REACH. WILL CONTINUE TO MONITOR Q1H AND PRN.
[2020-01-01] MEDS ORDERED: POTASSIUM EFFERVESENT TAB 25 MEQ GT ONE (08:15)
[2020-01-01 09:00] VITALS: BP 98/63
[2020-01-01] MEDS: metOLazone 5 MG TAB PO SCH (10:00)
[2020-01-01] MEDS ORDERED: POTASSIUM CHL 20 Meq TABLET PO ONE (10:00)
[2020-01-01] MEDS: GABAPENTIN 300 MG CAP PO SCH (10:01)
[2020-01-01] MEDS: MAGNESIUM OXIDE 400 MG TAB PO SCH (10:01)
[2020-01-01 13:00] VITALS: BP 95/62
--- NOTE | 2020-01-01 14:21 | NUR ---
Est energy needs 3042-6584 kcal (20-23 kcal/kg BW 82.5kg) Est protein needs 50-66g (0.6-0.8g/kg BW 82.5kg r/t elevated RFTs) Will reassess prn. Addendum: 01/01/20 at [address] Amended: Links added.
[2020-01-01 16:31] LABS: Calcium 8.9 mg/dL (8.5-10.1); Potassium 3.3 mmol/L (3.5-5.1)
[2020-01-01 16:33] LABS: BUN/Creatinine Ratio 30.1
[2020-01-01] MEDS: TAMSULOSIN HYDROCHLORIDE 0.4 MG CAP PO SCH (17:39)
[2020-01-01] MEDS: DOBUTamine 1000MCG/ML 250 ML IV SCH (17:39)
[2020-01-01] MEDS ORDERED: RIVAROXABAN 20 MG TAB PO SCH (18:00)
[2020-01-01 20:00] VITALS: BP 115/68
[2020-01-01 22:00] VITALS: BP 115/68
[2020-01-02] MEDS: FUROSEMIDE INJECTION 100 MG in SODIUM CHL 0.9% 100 ML IV SCH ×3 (03:19→12:22)
[2020-01-02 05:00] VITALS: BP 108/71
[2020-01-02] MEDS: ceFAZolin 1GM 2 GM in D5W 5% 100 ML IV SCH ×2 (05:23→16:09)
[2020-01-02] MEDS: POTASSIUM CHL 20 Meq TABLET PO SCH ×2 (06:48→15:22)
--- NOTE | 2020-01-02 07:30 | NUR ---
Opening Shift Note Assumed care of patient, awake and alert. No S/S of distress/SOB or pain. Instructed on POC and to call for assist PRN, will continue to monitor for changes Q1hr and PRN. Bed is locked and in lowest position. Call light within reach.
[2020-01-02 09:00] VITALS: BP 107/65
[2020-01-02] MEDS: MAGNESIUM OXIDE 400 MG TAB PO SCH (09:27)
[2020-01-02] MEDS: GABAPENTIN 300 MG CAP PO SCH (09:27)
[2020-01-02] MEDS: metOLazone 5 MG TAB PO SCH (09:28)
[2020-01-02] MEDS: DOBUTamine 1000MCG/ML 250 ML IV SCH (09:30)
[2020-01-02 13:00] VITALS: BP 109/76
[2020-01-02 16:24] VITALS: BP 109/76
[2020-01-02 17:00] VITALS: BP 114/73
--- NOTE | 2020-01-02 18:11 | NUR ---
IV REMOVED FROM LEFT HAND AND RIGHT UPPER ARM WITH NO SIGNS OF DISTRESS. IV CATHETERS INTACT. NO SIGNS OF INFECTION. APPLIED PRESSURE, GAUZE AND TAPE.
== END 2020-01-02 18:10 | disposition home or self-care (01) | DRG 286 ==
LOC: WEST WING 16:06 → TELE-WESTW 12-29 01:28
PROVIDERS: ADMIT Internal Medicine Cardiovascular Disease; ATTEND Internal Medicine Cardiovascular Disease
PROC: 4A023N7 Measurement of Cardiac Sampling and Pressure, Left Heart, Percutaneous Approach (ICD-10-PCS; principal; 2019-12-30)
PROC: B2131ZZ Fluoroscopy of Multiple Coronary Artery Bypass Grafts using Low Osmolar Contrast (ICD-10-PCS; 2019-12-30)
PROC: B2111ZZ Fluoroscopy of Multiple Coronary Arteries using Low Osmolar Contrast (ICD-10-PCS; 2019-12-30)
PROC: B24BZZ4 Ultrasonography of Heart with Aorta, Transesophageal (ICD-10-PCS; 2019-12-30)
DX: I13.0 Hypertensive heart and chronic kidney disease with heart failure and stage 1 through stage 4 chronic kidney disease, or unspecified chronic kidney disease (principal); I50.21 Acute systolic (congestive) heart failure; L03.119 Cellulitis of unspecified part of limb; N17.9 Acute kidney failure, unspecified; E87.6 Hypokalemia; I25.10 Atherosclerotic heart disease of native coronary artery without angina pectoris; I25.5 Ischemic cardiomyopathy; E11.22 Type 2 diabetes mellitus with diabetic chronic kidney disease; N18.3 Chronic kidney disease, stage 3 (moderate); D64.9 Anemia, unspecified; I73.9 Peripheral vascular disease, unspecified; I51.3 Intracardiac thrombosis, not elsewhere classified; E11.40 Type 2 diabetes mellitus with diabetic neuropathy, unspecified; E11.21 Type 2 diabetes mellitus with diabetic nephropathy; Z98.61 Coronary angioplasty status; Z95.810 Presence of automatic (implantable) cardiac defibrillator; Z95.1 Presence of aortocoronary bypass graft; Z95.2 Presence of prosthetic heart valve; Z79.4 Long term (current) use of insulin
CPT/HCPCS: 36415; 71045; 80048; 80053; 83880; 85025; 85610; 85730; 93005; 93312; 93458; 99152; G0378; J0690; J2250; J7060

== ENCOUNTER → 2020-01-09 | Outpatient (CLI) | payer MEDICARE, BC ==
[2020-01-09] VITALS (11 sets, daily range): BP systolic 105–134; BP diastolic 47–77
[~2020-01-09] MED LIST changes: -CALCTAB25 PO; -CHOL20007 PO; +CYANOCOBALAMIN (B-12) 1000 MCG/1 ML VIAL IM ONE; +CYANOCOBALAMIN (B-12) 1000 MCG/1 ML VIAL ONE; +DOBUTamine 1000MCG/ML 250 ML IV ONE; -FURO20TA3 PO; +FURO40TA4 PO; -OMEG120017 PO; +POTA10TA32 PO; -POTA1TAB61 PO; -ROSU10TA16 PO; +ROSU1TAB12 PO
--- NOTE | 2020-01-09 10:40 | NUR ---
CLINIC PT ARRIVED TO THE CHF CLINIC FROM BACK OFFICE WITH ORDERS FOR CHF EVAL AND TX. PT IS TO SEE [facility] WEEKLY FOR 4HR DOBUTAMINE TX AND EVAL. A/OX4, AMBULATORY WITH A WALKER. PT IS ACCOMPANIED BY HI MIKO. BREATHING IS RIVER AND UNLABORED. Addendum: 01/09/20 at 1601 by ELVIA ALCAZAR RN BASELINE ASSESSMENT WITH WT AND LABS DONE ON PT.
--- NOTE | 2020-01-09 10:50 | NUR ---
IV insertion IV access obtained, via clean sterile technique by inserting 22 gauge catheter at RAC after 1 attempt(s). IV secured properly. No trauma to site. Patient tolerated procedure well. LABS DRAWN AND SENT NOTE INSERTED BY GABBY GAN
--- NOTE | 2020-01-09 10:54 | NUR ---
DOBUTAMINE IV STARTED @ 2.5MCG/KG/MIN PER MD ORDERS. VSS. WILL CONTINUE TO MONITOR.
[2020-01-09 12:06] LABS: Basophils # (auto) 0.1 10 ^3/uL (0-0.2); Basophils % (auto) 0.7 % (0.0-2.0); Eosinophils # (auto) 0.2 10 ^3/uL (0-0.8); Eosinophils % (auto) 2.6 % (0.0-7.0); Hematocrit 46.6 % (41.0-53.0); Hemoglobin 14.9 g/dL (13.5-17.5); Lymphocytes # (auto) 0.6 10 ^3/uL (0.4-5.4); Lymphocytes % (auto) 6.8 % (10.0-50.0); Mean Corpuscular Hemoglobin 27.6 pg (28.0-32.0); Mean Corpuscular Volume 86.2 fL (80.0-100.0); Monocytes # (auto) 0.7 10 ^3/uL (0-1.3); Monocytes % (auto) 7.6 % (0.0-12.0); Neutrophils # (auto) 7.6 10 ^3/uL (1.6-8.6); Neutrophils % (auto) 82.3 % (37.0-80.0); Platelet Count (auto) 153 10^3/uL (140-450); Red Blood Cells 5.41 10^6/uL (4.5-5.90); Red Cell Distribution Width 14.8 % (11.8-14.3); White Blood Cell 9.2 10^3/uL (4.4-10.8)
[2020-01-09 12:33] LABS: BUN/Creatinine Ratio 28.3; Calcium 8.9 mg/dL (8.5-10.1)
--- NOTE | 2020-01-09 12:56 | NUR ---
PT TOLERATING IV DOBUTAMINE. IV SITE BENIGN, VSS, WILL CONTINUE TO MONITOR.
--- NOTE | 2020-01-09 13:10 | NUR ---
IV removal IV DC'd with sterile technique, catheter fully intact. Pressure dressing applied to site. Patient tolerated procedure well. Discharged with aftercare instructions per MD. NOTE: REMOVED BY MIRIAM GAN
--- NOTE | 2020-01-09 15:15 | NUR ---
Discharge Instructions See e-MAR for any mediations given with this visit. Patient education given on disease process. Patient verbalized understanding. Previous labs reviewed. Patient discharged in stable condition with after care instructions and follow up appointment ON THURSDAY @ 0800. PT AND DAUGHTER GIVEN EDUCATION ON CHF AND CHF CLINIC. PT AND DAUGHTER ALSO GIVEN INSTRUCTIONS ON IMPORTANCE OF DAILY WT AND TO REPORT ANY CHANGES OF 3LBS IN A DAY. PT AND DAUGHTER BOTH VERBALIZED UNDERSTANDING. GABBY GAN GAVE PT CHF CLINIC PHONE NUMBERS. NOTE DOBUTAMINE IV [id number] ADMIN BY MIRIAM GAN VIT B12 IM ADMIN BY MIRIAM GAN L DELTOID LOT#[id number] EXP 09/13
== END | disposition home or self-care (01) ==
LOC: CHF HDHVI 10:32
PROVIDERS: ATTEND Internal Medicine Cardiovascular Disease
DX: I13.0 Hypertensive heart and chronic kidney disease with heart failure and stage 1 through stage 4 chronic kidney disease, or unspecified chronic kidney disease (principal); I50.23 Acute on chronic systolic (congestive) heart failure; N18.3 Chronic kidney disease, stage 3 (moderate); I42.8 Other cardiomyopathies; I73.9 Peripheral vascular disease, unspecified; D64.9 Anemia, unspecified; E83.40 Disorders of magnesium metabolism, unspecified; E11.22 Type 2 diabetes mellitus with diabetic chronic kidney disease; E11.21 Type 2 diabetes mellitus with diabetic nephropathy; E11.40 Type 2 diabetes mellitus with diabetic neuropathy, unspecified; Z79.4 Long term (current) use of insulin; Z95.1 Presence of aortocoronary bypass graft; Z79.899 Other long term (current) drug therapy; Z95.810 Presence of automatic (implantable) cardiac defibrillator
CPT/HCPCS: 36415; 80048; 83735; 83880; 85025; 96365; 96366; 96372; G0463; J1250; J3420

== ENCOUNTER → 2020-01-13 | Outpatient (CLI) | payer MEDICARE, BC ==
[~2020-01-13] MED LIST changes: -CYANOCOBALAMIN (B-12) 1000 MCG/1 ML VIAL IM ONE; -CYANOCOBALAMIN (B-12) 1000 MCG/1 ML VIAL ONE; -DOBUTamine 1000MCG/ML 250 ML IV ONE; +VANCOMYCIN 1GM/250ML 250 ML IV ONE; +cefTRIAXone 1GM/50ML D5W 50 ML IV ONE
[2020-01-13 12:00] VITALS: BP 134/67
--- NOTE | 2020-01-13 12:00 | NUR ---
Patient into clinic for lle swelling, aaox4, ambulatory with walker, breathing unlabored. MD notified, orders received as entered.
--- NOTE | 2020-01-13 12:45 | NUR ---
IV insertion IV access obtained by Amaury GAN, via clean sterile technique by inserting 22 gauge catheter at [facility] after 1 attempt(s). IV secured properly. No trauma to site. Patient tolerated procedure well.
--- NOTE | 2020-01-13 14:25 | NUR ---
IV removal IV DC'd with sterile technique, catheter fully intact. Pressure dressing applied to site.
[2020-01-13 14:30] VITALS: BP 131/91
--- NOTE | 2020-01-13 14:30 | NUR ---
CHF Clinic Discharge Instructions See e-MAR for any mediations given with this visit. Patient education given on disease process. Patient verbalized understanding. Previous labs reviewed. Patient discharged in stable condition with after care instructions and follow up appointment on Thursday. Note Rocephin IV [id number] admin by Belinda GAN Vanco IV [phone] admin by Belinda GAN Keflex prescription called into patient pharmacy.
[2020-01-13 17:22] LABS: Basophils # (auto) 0 10 ^3/uL (0-0.2); Basophils % (auto) 0.3 % (0.0-2.0); Eosinophils # (auto) 0.2 10 ^3/uL (0-0.8); Hemoglobin 13.4 g/dL (13.5-17.5); Lymphocytes # (auto) 0.4 10 ^3/uL (0.4-5.4); Lymphocytes % (auto) 3.7 % (10.0-50.0); Mean Corpuscular Hemoglobin 27.4 pg (28.0-32.0); Mean Corpuscular Hgb Conc. 31.8 g/dL (32.0-36.0); Mean Corpuscular Volume 86.1 fL (80.0-100.0); Monocytes # (auto) 0.8 10 ^3/uL (0-1.3); Monocytes % (auto) 8.2 % (0.0-12.0); Neutrophils # (auto) 8.7 10 ^3/uL (1.6-8.6); Neutrophils % (auto) 85.8 % (37.0-80.0); Nucleated Red Blood Cells % 0.1 %; Platelet Count (auto) 135 10^3/uL (140-450); Red Blood Cells 4.88 10^6/uL (4.5-5.90); Red Cell Distribution Width 15.4 % (11.8-14.3); White Blood Cell 10.2 10^3/uL (4.4-10.8)
== END | disposition home or self-care (01) ==
LOC: CHF HDHVI 12:00
PROVIDERS: ATTEND Internal Medicine Cardiovascular Disease
DX: L03.116 Cellulitis of left lower limb (principal); I13.0 Hypertensive heart and chronic kidney disease with heart failure and stage 1 through stage 4 chronic kidney disease, or unspecified chronic kidney disease; N18.3 Chronic kidney disease, stage 3 (moderate); I50.22 Chronic systolic (congestive) heart failure; I25.10 Atherosclerotic heart disease of native coronary artery without angina pectoris; R94.4 Abnormal results of kidney function studies; D64.9 Anemia, unspecified; I42.8 Other cardiomyopathies; I73.9 Peripheral vascular disease, unspecified; E11.21 Type 2 diabetes mellitus with diabetic nephropathy; E11.40 Type 2 diabetes mellitus with diabetic neuropathy, unspecified; Z95.1 Presence of aortocoronary bypass graft; Z79.899 Other long term (current) drug therapy; Z95.810 Presence of automatic (implantable) cardiac defibrillator; Z79.4 Long term (current) use of insulin
CPT/HCPCS: 36415; 82565; 84520; 85025; 96365; 96367; G0463; J0696; J3370

== ENCOUNTER → 2020-01-16 | Outpatient (CLI) | payer MEDICARE, BC ==
[2020-01-16] VITALS (11 sets, daily range): BP systolic 105–147; BP diastolic 50–63
[~2020-01-16] MED LIST changes: +BUMETANIDE 1mg/4ml VIAL (0.25mg/ml) ONE; +BUMETANIDE 2.5mg/10ml (0.25 mg/ml) INJ IV ONE; +CALCTAB25 PO; +CHOL20007 PO; +DOBUTamine 1000MCG/ML 250 ML IV ONE; +FURO20TA3 PO; +OMEG120017 PO; +POTA1TAB61 PO; +POTASSIUM EFFERVESENT TAB 25 MEQ GT ONE; +POTASSIUM EFFERVESENT TAB 25 MEQ ONE; +ROSU10TA16 PO; -cefTRIAXone 1GM/50ML D5W 50 ML IV ONE
--- NOTE | 2020-01-16 08:05 | NUR ---
CLINIC PT ARRIVED TO THE CHF CLINIC FOR WEEKLY CHF EVAL AND TX. A/OX4, AMBULATORY WITH WALKER. BREATHING IS EVEN AND UNLABORED. 2+ LOWER EXTREMITY EDEMA NON PITTING. LEGS ARE RED AND WARM TO TOUCH. C/O PAIN AND RESTLESSNESS AT HOME. THERE IS AN INCREASE OF WT BY 1 LB SINCE LAST VISIT ON 01/13/20.
--- NOTE | 2020-01-16 08:21 | NUR ---
IV insertion IV access obtained, via clean sterile technique by inserting 22 gauge catheter at RAC after 1 attempt(s). IV secured properly. No trauma to site. Patient tolerated procedure well. LABS DRAWN AND SENT. NOTE INSERTED BY GABBY GAN
--- NOTE | 2020-01-16 08:27 | NUR ---
DOBUTAMINE IV STARTED @ 2.5 MCG/KG/MIN PER MD ORDERS. VSS. WILL CONTINUE TO MONITOR.
--- NOTE | 2020-01-16 10:31 | NUR ---
PT TOLERATING DOBUTAMINE INFUSION. IV SITE BENIGN. VSS. WILL CONTINUE TO MONITOR.
[2020-01-16 12:23] LABS: Basophils # (auto) 0 10 ^3/uL (0-0.2); Basophils % (auto) 0.7 % (0.0-2.0); Eosinophils # (auto) 0.3 10 ^3/uL (0-0.8); Hematocrit 42.5 % (41.0-53.0); Hemoglobin 13.5 g/dL (13.5-17.5); Lymphocytes # (auto) 0.6 10 ^3/uL (0.4-5.4); Lymphocytes % (auto) 9.4 % (10.0-50.0); Mean Corpuscular Hemoglobin 27.4 pg (28.0-32.0); Mean Corpuscular Hgb Conc. 31.9 g/dL (32.0-36.0); Mean Corpuscular Volume 85.9 fL (80.0-100.0); Monocytes # (auto) 0.4 10 ^3/uL (0-1.3); Monocytes % (auto) 7.1 % (0.0-12.0); Neutrophils # (auto) 4.8 10 ^3/uL (1.6-8.6); Neutrophils % (auto) 77.8 % (37.0-80.0); Nucleated Red Blood Cells % 0.3 %; Platelet Count (auto) 146 10^3/uL (140-450); Red Blood Cells 4.95 10^6/uL (4.5-5.90); Red Cell Distribution Width 15.1 % (11.8-14.3); White Blood Cell 6.2 10^3/uL (4.4-10.8)
--- NOTE | 2020-01-16 12:30 | NUR ---
Dr. Lobo Martinez at bedside Dr. Martinez at bedside for exam. Additional orders received and carried out.
--- NOTE | 2020-01-16 13:43 | NUR ---
Discharge Instructions See e-MAR for any mediations given with this visit. Patient education given on disease process. Patient verbalized understanding. Previous labs reviewed. Patient discharged in stable condition with after care instructions and follow up appointment IN 1 WEEK. NOTE DOBUTAMINE IV [id number] ADMIN BY GABBY GAN BUMEX IVP ADMIN BY GABBY GAN KDUR PO ADMIN BY GABBY RODRIGUEZ IVPB ADMIN BY MIRIAM GAN Addendum: 01/16/20 at 1434 by MIRIAM AKERS RN RN AZ KYLEO IV [id number] ADMIN BY MIRIAM GAN
== END | disposition home or self-care (01) ==
LOC: CHF HDHVI 08:08
PROVIDERS: ATTEND Internal Medicine Cardiovascular Disease
DX: I13.0 Hypertensive heart and chronic kidney disease with heart failure and stage 1 through stage 4 chronic kidney disease, or unspecified chronic kidney disease (principal); E11.22 Type 2 diabetes mellitus with diabetic chronic kidney disease; N18.3 Chronic kidney disease, stage 3 (moderate); I50.22 Chronic systolic (congestive) heart failure; D64.9 Anemia, unspecified; R53.83 Other fatigue; L03.116 Cellulitis of left lower limb; K90.9 Intestinal malabsorption, unspecified; I25.10 Atherosclerotic heart disease of native coronary artery without angina pectoris; I42.8 Other cardiomyopathies; I73.9 Peripheral vascular disease, unspecified; E11.21 Type 2 diabetes mellitus with diabetic nephropathy; E11.40 Type 2 diabetes mellitus with diabetic neuropathy, unspecified; Z95.1 Presence of aortocoronary bypass graft; Z79.4 Long term (current) use of insulin; Z95.810 Presence of automatic (implantable) cardiac defibrillator; Z79.899 Other long term (current) drug therapy
CPT/HCPCS: 36415; 82306; 85025; 96365; 96366; 96367; 96375; G0463; J1250; J3370; J3490

== ENCOUNTER → 2020-01-23 | Outpatient (CLI) | payer MEDICARE, BC ==
[~2020-01-23] MED LIST changes: -BUMETANIDE 1mg/4ml VIAL (0.25mg/ml) ONE; -BUMETANIDE 2.5mg/10ml (0.25 mg/ml) INJ IV ONE; -CALCTAB25 PO; -CHOL20007 PO; -DOBUTamine 1000MCG/ML 250 ML IV ONE; -FURO20TA3 PO; -OMEG120017 PO; -POTA1TAB61 PO; -POTASSIUM EFFERVESENT TAB 25 MEQ GT ONE; -POTASSIUM EFFERVESENT TAB 25 MEQ ONE; -ROSU10TA16 PO; -VANCOMYCIN 1GM/250ML 250 ML IV ONE
== END | disposition home or self-care (01) ==
LOC: Rad HDHVI 11:43
PROVIDERS: ATTEND Internal Medicine Cardiovascular Disease
DX: I50.23 Acute on chronic systolic (congestive) heart failure (principal)

== ENCOUNTER → 2020-01-23 | Outpatient (CLI) | payer MEDICARE, BC ==
[2020-01-23] VITALS (11 sets, daily range): BP systolic 113–139; BP diastolic 52–65
[~2020-01-23] MED LIST changes: +DOBUTamine 1000MCG/ML 250 ML IV ONE
--- NOTE | 2020-01-23 07:54 | NUR ---
CLINIC PT ARRIVED TO THE CHF CLINIC FOR WEEKLY CHF EVAL AND TX, A/OX4, AMBULATOR WITH CANE, BROUGHT IN BY DAUGHTER. BREATHING IS EVEN AND UNLABORED.
--- NOTE | 2020-01-23 08:10 | NUR ---
IV insertion IV access obtained, via clean sterile technique by inserting 22 gauge catheter at RAC after 1 attempt(s). IV secured properly. No trauma to site. Patient tolerated procedure well. LABS DRAWN AND SENT. NOTE INSERTED BY MIRIAM GAN
--- NOTE | 2020-01-23 08:12 | NUR ---
DOBUTAMINE IV STARTED @ 2.5 MCG/KG/MIN PER MD ORDERS. VSS. WILL CONTINUE TO MONITOR.
--- NOTE | 2020-01-23 10:10 | NUR ---
PT TOLERATING DOBUTAMINE INFUSION. IV SITE BENIGN. VSS. WILL CONTINUE TO MONITOR.
--- NOTE | 2020-01-23 10:52 | NUR ---
DOBUTAMINE INFUSION PAUSED PT TO BACK OFFICE FOR APPT WITH MD GARZA AND CT. A/OX4, AMBULATORY WITH CANE, BREATHING IS EVEN AND UNLABORED WHEN PT LEFT UNIT.
--- NOTE | 2020-01-23 11:52 | NUR ---
PT RETURNED TO CHF CLINIC FROM BACK OFFICE AND CT, DOBUTAMINE RESTARTED. VSS. WILL CONTINUE TO MONITOR. A/O X4, AMBULATORY WITH CANE, BREATHING IS EVEN AND UNLABORED.
[2020-01-23 12:09] LABS: Basophils # (auto) 0.1 10 ^3/uL (0-0.2); Basophils % (auto) 1.2 % (0.0-2.0); Eosinophils # (auto) 0.3 10 ^3/uL (0-0.8); Eosinophils % (auto) 7.6 % (0.0-7.0); Hematocrit 42.9 % (41.0-53.0); Lymphocytes # (auto) 0.4 10 ^3/uL (0.4-5.4); Lymphocytes % (auto) 9.7 % (10.0-50.0); Mean Corpuscular Hemoglobin 27.9 pg (28.0-32.0); Mean Corpuscular Hgb Conc. 32.7 g/dL (32.0-36.0); Mean Corpuscular Volume 85.4 fL (80.0-100.0); Monocytes # (auto) 0.4 10 ^3/uL (0-1.3); Monocytes % (auto) 8.1 % (0.0-12.0); Neutrophils # (auto) 3.3 10 ^3/uL (1.6-8.6); Neutrophils % (auto) 73.4 % (37.0-80.0); Nucleated Red Blood Cells % 0.1 %; Platelet Count (auto) 151 10^3/uL (140-450); Red Blood Cells 5.02 10^6/uL (4.5-5.90); Red Cell Distribution Width 15.4 % (11.8-14.3); White Blood Cell 4.5 10^3/uL (4.4-10.8)
[2020-01-23 12:19] LABS: Albumin 3.3 g/dL (3.4-5.0); Calcium 8.9 mg/dL (8.5-10.1); Magnesium 2.9 mg/dL (1.6-2.6); Potassium 4.2 mmol/L (3.5-5.1)
[2020-01-23 12:22] LABS: Bilirubin, Total 0.5 mg/dL (0.2-1.0); Total Protein 7.3 g/dL (6.4-8.2)
--- NOTE | 2020-01-23 13:23 | NUR ---
Discharge Instructions See e-MAR for any mediations given with this visit. Patient education given on disease process. Patient verbalized understanding. Previous labs reviewed. Patient discharged in stable condition with after care instructions and follow up appointment NEXT WED. NOTE DOBUTAMINE IV [id number]: [id number] ADMIN BY MIRIAM GAN
== END | disposition home or self-care (01) ==
LOC: CHF HDHVI 08:09
PROVIDERS: ATTEND Internal Medicine Cardiovascular Disease
DX: I13.0 Hypertensive heart and chronic kidney disease with heart failure and stage 1 through stage 4 chronic kidney disease, or unspecified chronic kidney disease (principal); E11.22 Type 2 diabetes mellitus with diabetic chronic kidney disease; I50.23 Acute on chronic systolic (congestive) heart failure; N18.3 Chronic kidney disease, stage 3 (moderate); D64.9 Anemia, unspecified; E83.40 Disorders of magnesium metabolism, unspecified; R53.83 Other fatigue; I25.10 Atherosclerotic heart disease of native coronary artery without angina pectoris; I42.8 Other cardiomyopathies; I63.9 Cerebral infarction, unspecified; I67.2 Cerebral atherosclerosis; I73.9 Peripheral vascular disease, unspecified; E11.21 Type 2 diabetes mellitus with diabetic nephropathy; Z95.810 Presence of automatic (implantable) cardiac defibrillator; Z95.1 Presence of aortocoronary bypass graft; Z79.899 Other long term (current) drug therapy; Z79.4 Long term (current) use of insulin
CPT/HCPCS: 36415; 70450; 80053; 83735; 85025; 96365; 96366; G0463; J1250

== ENCOUNTER → 2020-02-01 | Outpatient (CLI) | payer MEDICARE, BC ==
[~2020-02-01] VITALS: Ht 182.9 cm; Wt 84.5 kg
[2020-02-01] VITALS (11 sets, daily range): BP systolic 115–132; BP diastolic 48–77
--- NOTE | 2020-02-01 07:48 | NUR ---
CLINIC PT ARRIVED TO THE CHF CLINIC FOR WEEKLY CHF EVAL AND TX. A/OX4, AMBULATORY, BREATHING IS EVEN AND UNLABORED.
--- NOTE | 2020-02-01 07:56 | NUR ---
6MWT DONE BY LETTY SAGE PT COMPLETED 210M WHILE USING WALKER C/O CALF PAIN. PT IS WEARING A MASK DUE TO COVID. PT DID WELL. BASELINE TEST
--- NOTE | 2020-02-01 08:07 | NUR ---
IV insertion IV access obtained, via clean sterile technique by inserting 22 gauge catheter at RAC after 1 attempt(s). IV secured properly. No trauma to site. Patient tolerated procedure well. NOTE INSERTED BY GABBY GAN
--- NOTE | 2020-02-01 08:10 | NUR ---
DOBUTAMINE IV STARTED @ 2.5MCG/KG/MIN PER MD ORDERS. VSS. WILL CONTINUE TO MONITOR.
--- NOTE | 2020-02-01 10:44 | NUR ---
PT TOLERATING DOBUTAMINE INFUSION. IV SITE BENIGN. VSS. WILL CONTINUE TO MONITOR.
--- NOTE | 2020-02-01 12:16 | NUR ---
IV removal IV DC'd with sterile technique, catheter fully intact. Pressure dressing applied to site. Patient tolerated procedure well. Discharged with aftercare instructions per MD. NOTE: REMOVED BY MAXINE GAN
--- NOTE | 2020-02-01 12:27 | NUR ---
Discharge Instructions See e-MAR for any mediations given with this visit. Patient education given on disease process. Patient verbalized understanding. Previous labs reviewed. Patient discharged in stable condition with after care instructions and follow up appointment IN 1 WEEK. NOTE DOBUTAMINE IV [id number] ADMIN BY MIRIAM GAN 6MWT DONE BY LETTY SAGE
== END | disposition home or self-care (01) ==
LOC: CHF HDHVI 08:20
PROVIDERS: ATTEND Internal Medicine Cardiovascular Disease
DX: I13.0 Hypertensive heart and chronic kidney disease with heart failure and stage 1 through stage 4 chronic kidney disease, or unspecified chronic kidney disease (principal); E11.22 Type 2 diabetes mellitus with diabetic chronic kidney disease; I50.23 Acute on chronic systolic (congestive) heart failure; N18.3 Chronic kidney disease, stage 3 (moderate); I25.10 Atherosclerotic heart disease of native coronary artery without angina pectoris; I42.8 Other cardiomyopathies; E11.40 Type 2 diabetes mellitus with diabetic neuropathy, unspecified; R53.83 Other fatigue; Z79.4 Long term (current) use of insulin; Z79.899 Other long term (current) drug therapy; Z95.5 Presence of coronary angioplasty implant and graft; Z95.810 Presence of automatic (implantable) cardiac defibrillator
CPT/HCPCS: 94618; 96365; 96366; G0463; J1250

== ENCOUNTER → 2020-02-08 | Outpatient (CLI) | payer MEDICARE, BC ==
[2020-02-08] VITALS (11 sets, daily range): BP systolic 112–129; BP diastolic 55–66
[~2020-02-08] VITALS: Ht 30.5 cm; Wt 83.5 kg
--- NOTE | 2020-02-08 08:05 | NUR ---
CLINIC PT ARRIVED TO THE CHF CLINIC FOR WEEKLY CHF EVAL AND TX PER MD ORDERS. A/OX4, AMBULATORY, BREATHING IS EVEN AND UNLABORED. PT HAS A 2.6LB WT DECREASE SINCE LAST VISIT ON 02/01/20
--- NOTE | 2020-02-08 08:22 | NUR ---
DOBUTAMINE IV STARTED AT 2.5 MCG/KG/MIN PER MD ORDERS. VSS. WILL CONTINUE TO MONITOR.
--- NOTE | 2020-02-08 09:58 | NUR ---
PT TOLERATING DOBUTAMINE INFUSION. IV SITE BENIGN. VSS. WILL CONTINUE TO MONITOR.
[2020-02-08 12:05] LABS: Basophils # (auto) 0 10 ^3/uL (0-0.2); Eosinophils # (auto) 0.1 10 ^3/uL (0-0.8); Mean Corpuscular Hemoglobin 26.5 pg (28.0-32.0); Monocytes # (auto) 0.7 10 ^3/uL (0-1.3); Monocytes % (auto) 7.1 % (0.0-12.0); Neutrophils # (auto) 8.9 10 ^3/uL (1.6-8.6); Red Cell Distribution Width 16.1 % (11.8-14.3); White Blood Cell 10.1 10^3/uL (4.4-10.8)
[2020-02-08 12:07] LABS: Basophils % (auto) 0.1 % (0.0-2.0); Eosinophils % (auto) 1.3 % (0.0-7.0); Hematocrit 41.6 % (41.0-53.0); Lymphocytes # (auto) 0.4 10 ^3/uL (0.4-5.4); Lymphocytes % (auto) 3.5 % (10.0-50.0); Mean Corpuscular Hgb Conc. 31.2 g/dL (32.0-36.0); Mean Corpuscular Volume 85.1 fL (80.0-100.0); Nucleated Red Blood Cells % 0.2 %; Platelet Count (auto) 146 10^3/uL (140-450); Red Blood Cells 4.89 10^6/uL (4.5-5.90)
[2020-02-08 12:22] LABS: Calcium 9.2 mg/dL (8.5-10.1); Magnesium 2.6 mg/dL (1.6-2.6); Potassium 3.7 mmol/L (3.5-5.1)
--- NOTE | 2020-02-08 12:57 | NUR ---
Discharge Instructions See e-MAR for any mediations given with this visit. Patient education given on disease process. Patient verbalized understanding. Previous labs reviewed. Patient discharged in stable condition with after care instructions and follow up appointment THURSDAY. NOTE DOBUTAMINE IV [id number] ADMIN BY MIRIAM GAN
== END | disposition home or self-care (01) ==
LOC: CHF HDHVI 08:05
PROVIDERS: ATTEND Internal Medicine Cardiovascular Disease
DX: I13.0 Hypertensive heart and chronic kidney disease with heart failure and stage 1 through stage 4 chronic kidney disease, or unspecified chronic kidney disease (principal); E11.22 Type 2 diabetes mellitus with diabetic chronic kidney disease; N18.3 Chronic kidney disease, stage 3 (moderate); I50.23 Acute on chronic systolic (congestive) heart failure; R53.83 Other fatigue; I25.10 Atherosclerotic heart disease of native coronary artery without angina pectoris; I42.8 Other cardiomyopathies; I73.9 Peripheral vascular disease, unspecified; E11.40 Type 2 diabetes mellitus with diabetic neuropathy, unspecified; Z95.1 Presence of aortocoronary bypass graft; E11.21 Type 2 diabetes mellitus with diabetic nephropathy; Z79.899 Other long term (current) drug therapy; Z95.810 Presence of automatic (implantable) cardiac defibrillator; Z95.5 Presence of coronary angioplasty implant and graft; Z79.4 Long term (current) use of insulin
CPT/HCPCS: 36415; 80048; 83735; 85025; 96365; 96366; G0463; J1250

== ENCOUNTER → 2020-02-15 | Outpatient (CLI) | payer MEDICARE, BC ==
[2020-02-15] VITALS (12 sets, daily range): BP systolic 109–131; BP diastolic 52–84
[~2020-02-15] MED LIST changes: +FUROSEMIDE 100 MG/10ML VIAL IV ONE; +FUROSEMIDE 20 MG/2 ML VIAL ONE; +FUROSEMIDE 40 MG/4 ML VIAL ONE; +FUROSEMIDE INJECTION 10 ML ONE; +POTASSIUM CHL 20 Meq TABLET PO ONE; +VANCOMYCIN 1GM/250ML 250 ML IV ONE; +cefTRIAXone 1GM/50ML D5W 50 ML IV ONE; +cefTRIAXone SOD 1,000 MG VL ONE
[2020-02-15 12:17] LABS: Basophils # (auto) 0 10 ^3/uL (0-0.2); Basophils % (auto) 0.5 % (0.0-2.0); Eosinophils # (auto) 0.1 10 ^3/uL (0-0.8); Eosinophils % (auto) 1.3 % (0.0-7.0); Hematocrit 38.3 % (41.0-53.0); Hemoglobin 12.7 g/dL (13.5-17.5); Lymphocytes # (auto) 0.3 10 ^3/uL (0.4-5.4); Lymphocytes % (auto) 3.5 % (10.0-50.0); Mean Corpuscular Hemoglobin 27.6 pg (28.0-32.0); Mean Corpuscular Hgb Conc. 33.1 g/dL (32.0-36.0); Mean Corpuscular Volume 83.5 fL (80.0-100.0); Monocytes # (auto) 0.5 10 ^3/uL (0-1.3); Monocytes % (auto) 5.9 % (0.0-12.0); Neutrophils # (auto) 7.3 10 ^3/uL (1.6-8.6); Neutrophils % (auto) 88.8 % (37.0-80.0); Platelet Count (auto) 158 10^3/uL (140-450); Red Blood Cells 4.59 10^6/uL (4.5-5.90); Red Cell Distribution Width 15.9 % (11.8-14.3); White Blood Cell 8.3 10^3/uL (4.4-10.8)
[2020-02-15 12:33] LABS: BUN/Creatinine Ratio 15.1; Calcium 8.9 mg/dL (8.5-10.1); Magnesium 2.6 mg/dL (1.6-2.6)
== END | disposition home or self-care (01) ==
LOC: CHF HDHVI 08:03
PROVIDERS: ATTEND Internal Medicine Cardiovascular Disease
DX: I13.0 Hypertensive heart and chronic kidney disease with heart failure and stage 1 through stage 4 chronic kidney disease, or unspecified chronic kidney disease (principal); E11.22 Type 2 diabetes mellitus with diabetic chronic kidney disease; N18.3 Chronic kidney disease, stage 3 (moderate); I50.23 Acute on chronic systolic (congestive) heart failure; I25.10 Atherosclerotic heart disease of native coronary artery without angina pectoris; I73.9 Peripheral vascular disease, unspecified; I42.8 Other cardiomyopathies; E11.21 Type 2 diabetes mellitus with diabetic nephropathy; E11.40 Type 2 diabetes mellitus with diabetic neuropathy, unspecified; L03.116 Cellulitis of left lower limb; Z79.899 Other long term (current) drug therapy; Z95.1 Presence of aortocoronary bypass graft; Z95.810 Presence of automatic (implantable) cardiac defibrillator; Z95.5 Presence of coronary angioplasty implant and graft
CPT/HCPCS: 36415; 80048; 80162; 83735; 85025; 96365; 96366; 96368; 96375; G0463; J0696; J1250; J1940; J3370

== ENCOUNTER → 2020-02-20 | Outpatient (CLI) | payer MEDICARE, BC ==
[~2020-02-20] VITALS: Ht 165.1 cm; Wt 82.7 kg
[~2020-02-20] MED LIST changes: +BUMETANIDE 1mg/4ml VIAL (0.25mg/ml) ONE; +BUMETANIDE 2.5mg/10ml (0.25 mg/ml) INJ IV ONE; -DOBUTamine 1000MCG/ML 250 ML IV ONE; -FUROSEMIDE 100 MG/10ML VIAL IV ONE; -FUROSEMIDE 20 MG/2 ML VIAL ONE; -FUROSEMIDE 40 MG/4 ML VIAL ONE; -FUROSEMIDE INJECTION 10 ML ONE; +POTASSIUM CHL 10 Meq TABLET PO ONE; -VANCOMYCIN 1GM/250ML 250 ML IV ONE; +ceFAZolin 1GM 2 GM in D5W 5% 100 ML IV ONE; +ceFAZolin 1GM/50ML 100 ML IV ONE; -cefTRIAXone 1GM/50ML D5W 50 ML IV ONE; -cefTRIAXone SOD 1,000 MG VL ONE
[2020-02-20 13:25] VITALS: BP 113/55
== END | disposition home or self-care (01) ==
LOC: CHF HDHVI 12:00
PROVIDERS: ATTEND Internal Medicine Cardiovascular Disease
DX: L03.116 Cellulitis of left lower limb (principal); R53.83 Other fatigue; I13.0 Hypertensive heart and chronic kidney disease with heart failure and stage 1 through stage 4 chronic kidney disease, or unspecified chronic kidney disease; E11.22 Type 2 diabetes mellitus with diabetic chronic kidney disease; N18.3 Chronic kidney disease, stage 3 (moderate); I50.22 Chronic systolic (congestive) heart failure; R22.41 Localized swelling, mass and lump, right lower limb; I25.10 Atherosclerotic heart disease of native coronary artery without angina pectoris; I42.8 Other cardiomyopathies; I73.9 Peripheral vascular disease, unspecified; E11.21 Type 2 diabetes mellitus with diabetic nephropathy; Z95.1 Presence of aortocoronary bypass graft; Z95.810 Presence of automatic (implantable) cardiac defibrillator; Z95.5 Presence of coronary angioplasty implant and graft; Z79.4 Long term (current) use of insulin; Z79.899 Other long term (current) drug therapy
CPT/HCPCS: 96365; 96375; G0463; J0690; J3490; J7060

== ENCOUNTER → 2020-02-29 | Outpatient (CLI) | payer MEDICARE, BC ==
[2020-02-29] VITALS (11 sets, daily range): BP systolic 112–144; BP diastolic 59–81
[~2020-02-29] VITALS: Ht 30.5 cm; Wt 81.4 kg
[~2020-02-29] MED LIST changes: +BACITRACIN TOP OINT 1 UD PKG TOP ONE; -BUMETANIDE 1mg/4ml VIAL (0.25mg/ml) ONE; -BUMETANIDE 2.5mg/10ml (0.25 mg/ml) INJ IV ONE; +DOBUTamine 1000MCG/ML 250 ML IV ONE; -POTASSIUM CHL 10 Meq TABLET PO ONE; -POTASSIUM CHL 20 Meq TABLET PO ONE; -ceFAZolin 1GM 2 GM in D5W 5% 100 ML IV ONE; -ceFAZolin 1GM/50ML 100 ML IV ONE
--- NOTE | 2020-02-29 08:05 | NUR ---
CLINIC PT ARRIVED TO THE CHF CLINIC FOR WEEKLY CHF EVAL AND TX. A/OX4, AMBULATORY WITH WALKER, BREATHING IS EVEN AND UNLABORED. PT HAD A FALL AT HOME NICO NIGHT DUE TO LOSS OF BALANCE. PT WENT TO [facility] FOR EVAL POST FALL. HE HAS CUTS TO THE L ELBOW AND SHOULDER. 2+ PITTING EDEMA TO THE LOWER EXTREMITIES. L LEG SLIGHT REDNESS BUT HAS IMPROVED IN REDNESS SINCE LAST VISIT ON 02/24/20.
--- NOTE | 2020-02-29 08:09 | NUR ---
IV insertion IV access obtained, via clean sterile technique by inserting 22 gauge catheter at RAC after 1 attempt(s). IV secured properly. No trauma to site. Patient tolerated procedure well. LABS DRAWN AND SENT STAT. NOTE INSERTED BY GABBY GAN
--- NOTE | 2020-02-29 08:16 | NUR ---
DOBUTAMINE IV STARTED @ 3MCG/KG/MIN PER MD ORDERS. VSS. WILL CONTINUE TO MONITOR.
[2020-02-29 08:47] LABS: Eosinophils # (auto) 0.2 10 ^3/uL (0-0.8); Eosinophils % (auto) 3.2 % (0.0-7.0); Mean Corpuscular Hemoglobin 26.5 pg (28.0-32.0)
[2020-02-29 08:50] LABS: Basophils # (auto) 0 10 ^3/uL (0-0.2); Basophils % (auto) 0.7 % (0.0-2.0); Hematocrit 38.9 % (41.0-53.0); Hemoglobin 12.4 g/dL (13.5-17.5); Lymphocytes # (auto) 0.6 10 ^3/uL (0.4-5.4); Lymphocytes % (auto) 7.7 % (10.0-50.0); Mean Corpuscular Volume 82.9 fL (80.0-100.0); Monocytes # (auto) 0.5 10 ^3/uL (0-1.3); Monocytes % (auto) 7.2 % (0.0-12.0); Neutrophils # (auto) 6.1 10 ^3/uL (1.6-8.6); Neutrophils % (auto) 81.2 % (37.0-80.0); Platelet Count (auto) 157 10^3/uL (140-450); Red Blood Cells 4.68 10^6/uL (4.5-5.90); Red Cell Distribution Width 16.4 % (11.8-14.3); White Blood Cell 7.5 10^3/uL (4.4-10.8)
[2020-02-29 08:58] LABS: Albumin 3.2 g/dL (3.4-5.0); Calcium 8.5 mg/dL (8.5-10.1); Potassium 4.4 mmol/L (3.5-5.1)
[2020-02-29 09:02] LABS: BUN/Creatinine Ratio 21.8; Bilirubin, Total 0.6 mg/dL (0.2-1.0); Total Protein 6.8 g/dL (6.4-8.2)
--- NOTE | 2020-02-29 10:55 | NUR ---
PT TOLERATING DOBUTAMINE IV, IV SITE BENIGN, VSS, WILL CONTINUE TO MONITOR.
--- NOTE | 2020-02-29 11:23 | NUR ---
WOUND CARE DONE BY MIRIAM GAN WOUND CLEANED WITH NS BACITRACIN APPLIED TO WOUND AREA, NON STICK PAD PLACED OVER AND COVERED WITH TEGADERM, APPLIED TO L SHOULDER AND L ELBOW
--- NOTE | 2020-02-29 12:36 | NUR ---
IV removal IV DC'd with sterile technique, catheter fully intact. Pressure dressing applied to site. Patient tolerated procedure well. Discharged with aftercare instructions per MD. NOTE: REMOVED BY LORIN GAN
--- NOTE | 2020-02-29 12:40 | NUR ---
Discharge Instructions See e-MAR for any mediations given with this visit. Patient education given on disease process. Patient verbalized understanding. Previous labs reviewed. Patient discharged in stable condition with after care instructions and follow up appointment IN 1 WEEK. PT GIVEN 2 SAMPLE BOTTLES OF XARELTO 10MG TO BE TAKEN MD ORDERED. NOTE DOBUTAMINE IV [id number] ADMIN BY MIRIAM GANBIOMEDICAL PHOTOGRAPHER DONE BY MIRIAM GAN L ELBOW AND SHOULDER
== END | disposition home or self-care (01) ==
LOC: CHF HDHVI 08:21
PROVIDERS: ATTEND Internal Medicine Cardiovascular Disease
DX: I13.0 Hypertensive heart and chronic kidney disease with heart failure and stage 1 through stage 4 chronic kidney disease, or unspecified chronic kidney disease (principal); E11.22 Type 2 diabetes mellitus with diabetic chronic kidney disease; I50.23 Acute on chronic systolic (congestive) heart failure; N18.30 Chronic kidney disease, stage 3 unspecified; R53.83 Other fatigue; S51.002D Unspecified open wound of left elbow, subsequent encounter; E11.40 Type 2 diabetes mellitus with diabetic neuropathy, unspecified; E11.21 Type 2 diabetes mellitus with diabetic nephropathy; Z79.4 Long term (current) use of insulin; Z79.899 Other long term (current) drug therapy; Z95.810 Presence of automatic (implantable) cardiac defibrillator; X58.XXXD Exposure to other specified factors, subsequent encounter
CPT/HCPCS: 36415; 80053; 83735; 85025; 96365; 96366; G0463; J1250

== ENCOUNTER → 2020-03-14 | Outpatient (CLI) | payer MEDICARE, BC ==
[~2020-03-14] VITALS: Ht 30.5 cm; Wt 81.7 kg
[2020-03-14] VITALS (12 sets, daily range): BP systolic 93–145; BP diastolic 52–88
[~2020-03-14] MED LIST changes: -BACITRACIN TOP OINT 1 UD PKG TOP ONE; +CYANOCOBALAMIN (B-12) 1000 MCG/1 ML VIAL IM ONE; +CYANOCOBALAMIN (B-12) 1000 MCG/1 ML VIAL ONE; +POTASSIUM CHL 10 Meq TABLET PO ONE; +POTASSIUM CHL 20 Meq TABLET PO ONE
--- NOTE | 2020-03-14 08:00 | NUR ---
CLINIC PT ARRIVED TO THE CHF CLINIC FOR SCHEDULED WEEKLY CHF EVAL AND TX. Katie/OX4, AMBULATORY WITH WALKER AND ASSISTED BY DAUGHTER. PT STATED THAT HE HAD A FALL AT HOME ON SAT AND THAT HE BELIEVES THAT HE JUST LOST BALANCE AND THAT HE DID NOT LOOSE CONSCIOUS. HE BELIEVES THAT HE BROKE HIS L TOE IN THE FALL. BREATHING IS EVEN AND UNLABORED.
--- NOTE | 2020-03-14 08:05 | NUR ---
IV insertion IV access obtained, via clean sterile technique by inserting 22 gauge catheter at after 1 attempt(s). IV secured properly. No trauma to site. Patient tolerated procedure well. LABS DRAWN AND SENT. NOTE INSERTED BY GABBY GAN
--- NOTE | 2020-03-14 08:10 | NUR ---
DOBUTAMINE IV STARTED @ 3MCG/KG/MIN PER MD ORDERS. VSS, WILL CONTINUE TO MONITOR.
--- NOTE | 2020-03-14 10:11 | NUR ---
PT TOLERATING DOBUTAMINE INFUSION, IV SITE BENIGN, VSS, WILL CONTINUE TO MONITOR.
[2020-03-14 11:58] LABS: Basophils # (auto) 0 10 ^3/uL (0-0.2); Basophils % (auto) 0.7 % (0.0-2.0); Eosinophils # (auto) 0.2 10 ^3/uL (0-0.8); Lymphocytes # (auto) 0.5 10 ^3/uL (0.4-5.4)
[2020-03-14 12:00] LABS: Eosinophils % (auto) 2.4 % (0.0-7.0); Hematocrit 37.7 % (41.0-53.0); Hemoglobin 12.2 g/dL (13.5-17.5); Lymphocytes % (auto) 7.2 % (10.0-50.0); Mean Corpuscular Hemoglobin 26.9 pg (28.0-32.0); Mean Corpuscular Hgb Conc. 32.3 g/dL (32.0-36.0); Mean Corpuscular Volume 83.3 fL (80.0-100.0); Monocytes # (auto) 0.8 10 ^3/uL (0-1.3); Monocytes % (auto) 11.9 % (0.0-12.0); Neutrophils # (auto) 5.4 10 ^3/uL (1.6-8.6); Neutrophils % (auto) 77.8 % (37.0-80.0); Nucleated Red Blood Cells % 0.3 %; Platelet Count (auto) 201 10^3/uL (140-450); Red Blood Cells 4.53 10^6/uL (4.5-5.90); Red Cell Distribution Width 16.8 % (11.8-14.3)
[2020-03-14 12:05] LABS: Calcium 9.3 mg/dL (8.5-10.1); Potassium 3.3 mmol/L (3.5-5.1)
--- NOTE | 2020-03-14 12:10 | NUR ---
LAB RESULTS REVIEWED WITH MD GARZA NEW ORDERS RECEIVED AND CARRIED OUT.
--- NOTE | 2020-03-14 12:50 | NUR ---
IV removal IV DC'd with sterile technique, catheter fully intact. Pressure dressing applied to site. Patient tolerated procedure well. Discharged with aftercare instructions per MD. NOTE: REMOVED BY GABBY GAN
--- NOTE | 2020-03-14 12:56 | NUR ---
Discharge Instructions See e-MAR for any mediations given with this visit. Patient education given on disease process. Patient verbalized understanding. Previous labs reviewed. Patient discharged in stable condition with after care instructions and follow up appointment IN 1 WEEK. MED REC DONE WITH MD GREG RAYMOND D/Dion AND NEW PRESCRIPTION OF AMIODARONE 400MG QD CALLED TO PT PHARMACY. NOTE DOBUTAMINE IV [id number] ADMIN BY MIRIAM GAN VIT B12 IM ADMIN BY MIRIAM GAN R DELTOID LOT#[id number] EXP 09/13 KDUR PO ADMIN BY MIRIAM GAN
== END | disposition home or self-care (01) ==
LOC: Rad HDHVI 08:23
PROVIDERS: ATTEND Internal Medicine Cardiovascular Disease
DX: I13.0 Hypertensive heart and chronic kidney disease with heart failure and stage 1 through stage 4 chronic kidney disease, or unspecified chronic kidney disease (principal); E11.22 Type 2 diabetes mellitus with diabetic chronic kidney disease; N18.30 Chronic kidney disease, stage 3 unspecified; I50.23 Acute on chronic systolic (congestive) heart failure; R53.83 Other fatigue; R00.0 Tachycardia, unspecified; M25.572 Pain in left ankle and joints of left foot; I25.10 Atherosclerotic heart disease of native coronary artery without angina pectoris; I42.8 Other cardiomyopathies; I73.9 Peripheral vascular disease, unspecified; E11.21 Type 2 diabetes mellitus with diabetic nephropathy; Z95.1 Presence of aortocoronary bypass graft; Z95.5 Presence of coronary angioplasty implant and graft; Z79.4 Long term (current) use of insulin; Z79.899 Other long term (current) drug therapy; Z95.810 Presence of automatic (implantable) cardiac defibrillator
CPT/HCPCS: 36415; 73630; 80048; 83036; 83735; 85025; 96365; 96366; 96372; G0463; J1250; J3420

== ENCOUNTER → 2020-03-21 | Outpatient (CLI) | payer MEDICARE, BC ==
[2020-03-21] VITALS (11 sets, daily range): BP systolic 104–131; BP diastolic 59–79
[~2020-03-21] MED LIST changes: -CYANOCOBALAMIN (B-12) 1000 MCG/1 ML VIAL IM ONE; -CYANOCOBALAMIN (B-12) 1000 MCG/1 ML VIAL ONE; -POTASSIUM CHL 10 Meq TABLET PO ONE; -POTASSIUM CHL 20 Meq TABLET PO ONE
--- NOTE | 2020-03-21 07:50 | NUR ---
CLINIC PT ARRIVED TO THE CHF CLINIC FOR SCHEDULED WEEKLY CHF EVAL AND TX. A/OX4, AMBULATORY, BREATHING IS EVEN AND UNLABORED. PT STATED THAT HE IS FEELING THE BEST THAT HE HAS FELT IN A LONG TIME.
--- NOTE | 2020-03-21 08:11 | NUR ---
IV insertion IV access obtained, via clean sterile technique by inserting 22 gauge catheter at RAC after 2 attempt(s). IV secured properly. No trauma to site. Patient tolerated procedure well. LABS DRAWN AND SENT. NOTE INSERTED BY LASHONDA ESCOTO 1 MISS BY MIRIAM GAN
--- NOTE | 2020-03-21 08:16 | NUR ---
DOBUTAMINE IV STARTED @ 3 MCG/KG/MIN PER MD ORDERS, VSS, WILL CONTINUE TO MONITOR.
--- NOTE | 2020-03-21 10:16 | NUR ---
PT TOLERATING DOBUTAMINE INFUSION, IV SITE BENIGN, VSS, WILL CONTINUE TO MONITOR.
[2020-03-21 12:19] LABS: Basophils # (auto) 0 10 ^3/uL (0-0.2); Lymphocytes # (auto) 0.5 10 ^3/uL (0.4-5.4); Monocytes # (auto) 0.6 10 ^3/uL (0-1.3); Neutrophils % (auto) 85.2 % (37.0-80.0)
[2020-03-21 12:23] LABS: Basophils % (auto) 0.5 % (0.0-2.0); Eosinophils # (auto) 0.2 10 ^3/uL (0-0.8); Eosinophils % (auto) 1.9 % (0.0-7.0); Hematocrit 35.3 % (41.0-53.0); Hemoglobin 11.5 g/dL (13.5-17.5); Lymphocytes % (auto) 5.7 % (10.0-50.0); Mean Corpuscular Hgb Conc. 32.7 g/dL (32.0-36.0); Mean Corpuscular Volume 82.6 fL (80.0-100.0); Monocytes % (auto) 6.7 % (0.0-12.0); Neutrophils # (auto) 7.2 10 ^3/uL (1.6-8.6); Platelet Count (auto) 194 10^3/uL (140-450); Red Blood Cells 4.27 10^6/uL (4.5-5.90); Red Cell Distribution Width 16.5 % (11.8-14.3); White Blood Cell 8.4 10^3/uL (4.4-10.8)
[2020-03-21 12:28] LABS: Potassium 4.1 mmol/L (3.5-5.1)
--- NOTE | 2020-03-21 12:30 | NUR ---
Discharge Instructions See e-MAR for any mediations given with this visit. Patient education given on disease process. Patient verbalized understanding. Previous labs reviewed. Patient discharged in stable condition with after care instructions and follow up appointment IN 1 WEEK. NOTE DOBUTAMINE IV [id number] ADMIN BY MIRIAM GAN
[2020-03-21 12:35] LABS: BUN/Creatinine Ratio 23.8; Bilirubin, Total 0.7 mg/dL (0.2-1.0); Calcium 8.9 mg/dL (8.5-10.1); Magnesium 3.2 mg/dL (1.6-2.6); Total Protein 7.9 g/dL (6.4-8.2)
== END | disposition home or self-care (01) ==
LOC: CHF HDHVI 07:55
PROVIDERS: ATTEND Internal Medicine Cardiovascular Disease
DX: I13.0 Hypertensive heart and chronic kidney disease with heart failure and stage 1 through stage 4 chronic kidney disease, or unspecified chronic kidney disease (principal); E11.22 Type 2 diabetes mellitus with diabetic chronic kidney disease; I50.23 Acute on chronic systolic (congestive) heart failure; N18.30 Chronic kidney disease, stage 3 unspecified; I25.10 Atherosclerotic heart disease of native coronary artery without angina pectoris; I48.91 Unspecified atrial fibrillation; I42.8 Other cardiomyopathies; I73.9 Peripheral vascular disease, unspecified; R53.83 Other fatigue; E11.21 Type 2 diabetes mellitus with diabetic nephropathy; Z79.4 Long term (current) use of insulin; Z95.1 Presence of aortocoronary bypass graft; Z95.5 Presence of coronary angioplasty implant and graft; Z79.899 Other long term (current) drug therapy
CPT/HCPCS: 36415; 80053; 83735; 85025; 96365; 96366; G0463; J1250

== ENCOUNTER → 2020-03-28 | Outpatient (CLI) | payer MEDICARE, BC ==
[2020-03-28] VITALS (7 sets, daily range): BP systolic 106–134; BP diastolic 56–77
--- NOTE | 2020-03-28 07:55 | NUR ---
CLINIC PT ARRIVED TO THE CHF CLINIC FOR SCHEDULED WEEKLY CHF EVAL AND TX, A/OX4, AMBULATORY, BREATHING IS EVEN AND UNLABORED. PT STATED THAT HE HAS BEEN FEELING MUCH BETTER IN HIS OVERALL HEALTH.
--- NOTE | 2020-03-28 08:05 | NUR ---
DOBUTAMINE IV STARTED @ 3MCG/KG/MIN PER MD ORDERS, VSS, WILL CONTINUE TO MONITOR.
--- NOTE | 2020-03-28 09:55 | NUR ---
DOBUTAMINE IV PAUSED PT TO BACK OFFICE FOR APPT WITH MD GARZA.
--- NOTE | 2020-03-28 10:25 | NUR ---
PT RETURN FROM APPT WITH MD GARZA, PER MD SÁNCHEZ TO D/C TX TODAY AND NO FURTHER TX IS NEEDED AT THIS TIME. PT IS TO RETURN TO SEE MD GARZA IN 2 MONTHS.
--- NOTE | 2020-03-28 10:33 | NUR ---
Discharge Instructions See e-MAR for any mediations given with this visit. Patient education given on disease process. Patient verbalized understanding. Previous labs reviewed. Patient discharged in stable condition with after care instructions and follow up appointment IN 2 MONTHS. NOTE DOBUTAMINE IV [id number] ADMIN BY MIRIAM GAN
[2020-03-28 12:04] LABS: Magnesium 2.8 mg/dL (1.6-2.6); Potassium 4.5 mmol/L (3.5-5.1)
== END | disposition home or self-care (01) ==
LOC: CHF HDHVI 08:25
PROVIDERS: ATTEND Internal Medicine Cardiovascular Disease
DX: I13.0 Hypertensive heart and chronic kidney disease with heart failure and stage 1 through stage 4 chronic kidney disease, or unspecified chronic kidney disease (principal); E11.22 Type 2 diabetes mellitus with diabetic chronic kidney disease; N18.30 Chronic kidney disease, stage 3 unspecified; I50.23 Acute on chronic systolic (congestive) heart failure; R53.83 Other fatigue; I25.10 Atherosclerotic heart disease of native coronary artery without angina pectoris; I42.8 Other cardiomyopathies; I73.9 Peripheral vascular disease, unspecified; I48.91 Unspecified atrial fibrillation; R60.0 Localized edema; E11.21 Type 2 diabetes mellitus with diabetic nephropathy; E11.40 Type 2 diabetes mellitus with diabetic neuropathy, unspecified; Z79.4 Long term (current) use of insulin; Z95.1 Presence of aortocoronary bypass graft; Z95.5 Presence of coronary angioplasty implant and graft; Z95.810 Presence of automatic (implantable) cardiac defibrillator; Z79.899 Other long term (current) drug therapy
CPT/HCPCS: 36415; 82565; 83735; 84132; 84520; 96365; 96366; G0463; J1250

== ENCOUNTER → 2020-05-04 | Outpatient (CLI) | payer MEDICARE, BC ==
[~2020-05-04] MED LIST changes: -DOBUTamine 1000MCG/ML 250 ML IV ONE
[2020-05-04 12:23] LABS: Calcium 8.9 mg/dL (8.5-10.1); Potassium 3.6 mmol/L (3.5-5.1)
== END | disposition home or self-care (01) ==
LOC: LAB 10:16
PROVIDERS: ATTEND Internal Medicine Cardiovascular Disease
DX: I11.0 Hypertensive heart disease with heart failure (principal); I50.23 Acute on chronic systolic (congestive) heart failure
CPT/HCPCS: 36415; 80048; 83880

== ENCOUNTER → 2020-05-08 | Outpatient (CLI) | payer MEDICARE, BC ==
[2020-05-08] VITALS (11 sets, daily range): BP systolic 101–125; BP diastolic 51–68
[~2020-05-08] MED LIST changes: +CYANOCOBALAMIN (B-12) 1000 MCG/1 ML VIAL IM ONE; +CYANOCOBALAMIN (B-12) 1000 MCG/1 ML VIAL ONE; +DOBUTamine 1000MCG/ML 250 ML IV ONE; +POTASSIUM CHL 20 Meq TABLET PO ONE; +SODIUM CHLORIDE 0.9% 250 ML IV ONE; +SODIUM CHLORIDE 0.9% 250 ML IV SCH; +TESTOSTERONE CYPIONATE 200 MG/ML 1ML VIAL IM ONE
[2020-05-08 10:13] LABS: Basophils # (auto) 0 10 ^3/uL (0-0.2); Basophils % (auto) 0.3 % (0.0-2.0); Mean Corpuscular Volume 72.7 fL (80.0-100.0); Monocytes # (auto) 0.7 10 ^3/uL (0-1.3)
[2020-05-08 10:14] LABS: Eosinophils # (auto) 0 10 ^3/uL (0-0.8); Eosinophils % (auto) 0.4 % (0.0-7.0); Hematocrit 30.2 % (41.0-53.0); Hemoglobin 9.6 g/dL (13.5-17.5); Lymphocytes # (auto) 0.4 10 ^3/uL (0.4-5.4); Lymphocytes % (auto) 4.4 % (10.0-50.0); Mean Corpuscular Hemoglobin 23.1 pg (28.0-32.0); Mean Corpuscular Hgb Conc. 31.8 g/dL (32.0-36.0); Monocytes % (auto) 7.6 % (0.0-12.0); Neutrophils # (auto) 7.7 10 ^3/uL (1.6-8.6); Neutrophils % (auto) 87.3 % (37.0-80.0); Nucleated Red Blood Cells % 0.3 %; Platelet Count (auto) 325 10^3/uL (140-450); Red Blood Cells 4.15 10^6/uL (4.5-5.90); Red Cell Distribution Width 18.7 % (11.8-14.3); White Blood Cell 8.8 10^3/uL (4.4-10.8)
[2020-05-08 10:34] LABS: Albumin 3.8 g/dL (3.4-5.0); Calcium 9.1 mg/dL (8.5-10.1); Magnesium 3.6 mg/dL (1.6-2.6)
[2020-05-08 10:37] LABS: BUN/Creatinine Ratio 27.3; Bilirubin, Total 0.8 mg/dL (0.2-1.0); Total Protein 7.9 g/dL (6.4-8.2)
[2020-05-08 10:40] LABS: Potassium 2.5 mmol/L (3.5-5.1)
== END | disposition home or self-care (01) ==
LOC: CHF HDHVI 09:26
PROVIDERS: ATTEND Internal Medicine Cardiovascular Disease
DX: I13.0 Hypertensive heart and chronic kidney disease with heart failure and stage 1 through stage 4 chronic kidney disease, or unspecified chronic kidney disease (principal); E11.22 Type 2 diabetes mellitus with diabetic chronic kidney disease; N18.30 Chronic kidney disease, stage 3 unspecified; I50.23 Acute on chronic systolic (congestive) heart failure; E29.1 Testicular hypofunction; E55.9 Vitamin D deficiency, unspecified; D64.9 Anemia, unspecified; R53.83 Other fatigue; R06.02 Shortness of breath; I25.10 Atherosclerotic heart disease of native coronary artery without angina pectoris; I73.9 Peripheral vascular disease, unspecified; I48.91 Unspecified atrial fibrillation; I42.8 Other cardiomyopathies; E11.21 Type 2 diabetes mellitus with diabetic nephropathy; E11.40 Type 2 diabetes mellitus with diabetic neuropathy, unspecified; Z95.5 Presence of coronary angioplasty implant and graft; Z95.810 Presence of automatic (implantable) cardiac defibrillator; Z79.4 Long term (current) use of insulin
CPT/HCPCS: 36415; 71046; 73030; 80053; 83735; 83880; 85025; 93005; 96361; 96365; 96366; 96372; G0463; J1071; J1250; J3420; J7050

== ENCOUNTER → 2020-05-10 | Outpatient (CLI) | payer MEDICARE, BC ==
[2020-05-10] VITALS (9 sets, daily range): BP systolic 92–121; BP diastolic 52–65
[~2020-05-10] MED LIST changes: -CYANOCOBALAMIN (B-12) 1000 MCG/1 ML VIAL IM ONE; -CYANOCOBALAMIN (B-12) 1000 MCG/1 ML VIAL ONE; -POTASSIUM CHL 20 Meq TABLET PO ONE; -SODIUM CHLORIDE 0.9% 250 ML IV ONE; -SODIUM CHLORIDE 0.9% 250 ML IV SCH; -TESTOSTERONE CYPIONATE 200 MG/ML 1ML VIAL IM ONE
[2020-05-10 09:47] LABS: BUN/Creatinine Ratio 27.1; Calcium 8.9 mg/dL (8.5-10.1); Magnesium 3.2 mg/dL (1.6-2.6); Potassium 3.7 mmol/L (3.5-5.1)
[2020-05-10 10:07] LABS: Eosinophils # (auto) 0.1 10 ^3/uL (0-0.8); Eosinophils % (auto) 0.9 % (0.0-7.0); Nucleated Red Blood Cells % 0.1 %
[2020-05-10 10:10] LABS: Basophils # (auto) 0.1 10 ^3/uL (0-0.2); Basophils % (auto) 0.7 % (0.0-2.0); Hematocrit 28.8 % (41.0-53.0); Hemoglobin 8.7 g/dL (13.5-17.5); Lymphocytes # (auto) 0.3 10 ^3/uL (0.4-5.4); Lymphocytes % (auto) 3.9 % (10.0-50.0); Mean Corpuscular Hgb Conc. 30.2 g/dL (32.0-36.0); Mean Corpuscular Volume 72.8 fL (80.0-100.0); Monocytes # (auto) 0.6 10 ^3/uL (0-1.3); Neutrophils # (auto) 7.2 10 ^3/uL (1.6-8.6); Neutrophils % (auto) 87.5 % (37.0-80.0); Platelet Count (auto) 284 10^3/uL (140-450); Red Blood Cells 3.96 10^6/uL (4.5-5.90); White Blood Cell 8.2 10^3/uL (4.4-10.8)
== END | disposition home or self-care (01) ==
LOC: CHF HDHVI 08:27
PROVIDERS: ATTEND Internal Medicine Cardiovascular Disease
DX: I13.0 Hypertensive heart and chronic kidney disease with heart failure and stage 1 through stage 4 chronic kidney disease, or unspecified chronic kidney disease (principal); E11.22 Type 2 diabetes mellitus with diabetic chronic kidney disease; N18.30 Chronic kidney disease, stage 3 unspecified; I50.23 Acute on chronic systolic (congestive) heart failure; R53.83 Other fatigue; E87.6 Hypokalemia; I25.10 Atherosclerotic heart disease of native coronary artery without angina pectoris; I42.8 Other cardiomyopathies; I73.9 Peripheral vascular disease, unspecified; I48.91 Unspecified atrial fibrillation; E11.21 Type 2 diabetes mellitus with diabetic nephropathy; E11.40 Type 2 diabetes mellitus with diabetic neuropathy, unspecified; Z95.1 Presence of aortocoronary bypass graft; Z95.810 Presence of automatic (implantable) cardiac defibrillator; Z95.5 Presence of coronary angioplasty implant and graft; Z79.4 Long term (current) use of insulin; Z79.899 Other long term (current) drug therapy
CPT/HCPCS: 36415; 80048; 83735; 85025; 96365; 96366; G0463; J1250

== ENCOUNTER → 2020-05-15 | Outpatient (CLI) | payer MEDICARE, BC ==
[2020-05-15] VITALS (13 sets, daily range): BP systolic 83–118; BP diastolic 44–63
[~2020-05-15] MED LIST changes: +BACITRACIN TOP OINT 1 UD PKG TOP ONE; +CYANOCOBALAMIN (B-12) 1000 MCG/1 ML VIAL IM ONE; +CYANOCOBALAMIN (B-12) 1000 MCG/1 ML VIAL ONE; +IRON SUCROSE 20 mg/ml 10ml VIAL IV ONE; +IRON SUCROSE COMPLEX 200 MG in SODIUM CHL 0.9% 100 ML IV ONE
[2020-05-15 09:03] LABS: Basophils # (auto) 0.1 10 ^3/uL (0-0.2); Basophils % (auto) 0.5 % (0.0-2.0); Eosinophils # (auto) 0.1 10 ^3/uL (0-0.8); Eosinophils % (auto) 0.9 % (0.0-7.0); Lymphocytes # (auto) 0.3 10 ^3/uL (0.4-5.4); Lymphocytes % (auto) 2.4 % (10.0-50.0)
[2020-05-15 09:05] LABS: Hematocrit 24.2 % (41.0-53.0); Hemoglobin 7.3 g/dL (13.5-17.5); Mean Corpuscular Hemoglobin 21.8 pg (28.0-32.0); Mean Corpuscular Hgb Conc. 30.3 g/dL (32.0-36.0); Mean Corpuscular Volume 71.9 fL (80.0-100.0); Monocytes # (auto) 0.6 10 ^3/uL (0-1.3); Monocytes % (auto) 5.3 % (0.0-12.0); Neutrophils # (auto) 10.9 10 ^3/uL (1.6-8.6); Neutrophils % (auto) 90.9 % (37.0-80.0); Platelet Count (auto) 218 10^3/uL (140-450); Red Blood Cells 3.37 10^6/uL (4.5-5.90); Red Cell Distribution Width 19.3 % (11.8-14.3)
[2020-05-15 09:11] LABS: Magnesium 2.3 mg/dL (1.6-2.6); Potassium 4.2 mmol/L (3.5-5.1)
== END | disposition home or self-care (01) ==
LOC: CHF HDHVI 08:09
PROVIDERS: ATTEND Internal Medicine Cardiovascular Disease
DX: I13.0 Hypertensive heart and chronic kidney disease with heart failure and stage 1 through stage 4 chronic kidney disease, or unspecified chronic kidney disease (principal); E11.22 Type 2 diabetes mellitus with diabetic chronic kidney disease; N18.30 Chronic kidney disease, stage 3 unspecified; I50.23 Acute on chronic systolic (congestive) heart failure; D64.9 Anemia, unspecified; R06.02 Shortness of breath; I70.0 Atherosclerosis of aorta; I25.10 Atherosclerotic heart disease of native coronary artery without angina pectoris; I42.8 Other cardiomyopathies; I48.91 Unspecified atrial fibrillation; I73.9 Peripheral vascular disease, unspecified; E11.21 Type 2 diabetes mellitus with diabetic nephropathy; E11.40 Type 2 diabetes mellitus with diabetic neuropathy, unspecified; Z79.899 Other long term (current) drug therapy; Z79.4 Long term (current) use of insulin; Z95.1 Presence of aortocoronary bypass graft; Z95.810 Presence of automatic (implantable) cardiac defibrillator
CPT/HCPCS: 36415; 71046; 82565; 83735; 83880; 84132; 84520; 85025; 96365; 96366; 96367; 96372; G0463; J1250; J1756; J3420

== ENCOUNTER → 2020-05-17 | Outpatient (CLI) | payer MEDICARE, BC ==
[2020-05-17] VITALS (9 sets, daily range): BP systolic 92–123; BP diastolic 49–62
[~2020-05-17] MED LIST changes: -BACITRACIN TOP OINT 1 UD PKG TOP ONE; -CYANOCOBALAMIN (B-12) 1000 MCG/1 ML VIAL IM ONE; -CYANOCOBALAMIN (B-12) 1000 MCG/1 ML VIAL ONE; -IRON SUCROSE 20 mg/ml 10ml VIAL IV ONE; -IRON SUCROSE COMPLEX 200 MG in SODIUM CHL 0.9% 100 ML IV ONE; +SODIUM FERR GLUC 62.5MG/5ML 125 MG in SODIUM CHL 0.9% 100 ML IV ONE; +SODIUM FERRIC GLUC CPLEX 62.5MG/5ML VIAL IV ONE
[2020-05-17 09:17] LABS: Hematocrit 23.5 % (41.0-53.0); Hemoglobin 7.2 g/dL (13.5-17.5); Lymphocytes # (auto) 0.4 10 ^3/uL (0.4-5.4); Nucleated Red Blood Cells % 0.1 %; White Blood Cell 7.6 10^3/uL (4.4-10.8)
[2020-05-17 09:19] LABS: Basophils # (auto) 0 10 ^3/uL (0-0.2); Basophils % (auto) 0.5 % (0.0-2.0); Eosinophils # (auto) 0.1 10 ^3/uL (0-0.8); Eosinophils % (auto) 1.9 % (0.0-7.0); Lymphocytes % (auto) 5.9 % (10.0-50.0); Mean Corpuscular Hemoglobin 22.3 pg (28.0-32.0); Mean Corpuscular Hgb Conc. 30.9 g/dL (32.0-36.0); Mean Corpuscular Volume 72.4 fL (80.0-100.0); Monocytes # (auto) 0.6 10 ^3/uL (0-1.3); Monocytes % (auto) 8.3 % (0.0-12.0); Neutrophils # (auto) 6.4 10 ^3/uL (1.6-8.6); Neutrophils % (auto) 83.4 % (37.0-80.0); Platelet Count (auto) 216 10^3/uL (140-450); Red Blood Cells 3.24 10^6/uL (4.5-5.90); Red Cell Distribution Width 18.9 % (11.8-14.3)
[2020-05-17 09:30] LABS: BUN/Creatinine Ratio 18.7; Calcium 8.7 mg/dL (8.5-10.1); Magnesium 2.3 mg/dL (1.6-2.6); Potassium 3.6 mmol/L (3.5-5.1)
== END | disposition home or self-care (01) ==
LOC: CHF HDHVI 08:26
PROVIDERS: ATTEND Internal Medicine Cardiovascular Disease
DX: I13.0 Hypertensive heart and chronic kidney disease with heart failure and stage 1 through stage 4 chronic kidney disease, or unspecified chronic kidney disease (principal); E11.22 Type 2 diabetes mellitus with diabetic chronic kidney disease; N18.30 Chronic kidney disease, stage 3 unspecified; I50.23 Acute on chronic systolic (congestive) heart failure; R53.83 Other fatigue; I48.91 Unspecified atrial fibrillation; D64.9 Anemia, unspecified; I25.10 Atherosclerotic heart disease of native coronary artery without angina pectoris; I42.8 Other cardiomyopathies; I73.9 Peripheral vascular disease, unspecified; E11.21 Type 2 diabetes mellitus with diabetic nephropathy; Z79.899 Other long term (current) drug therapy; Z95.1 Presence of aortocoronary bypass graft; Z95.810 Presence of automatic (implantable) cardiac defibrillator; Z79.4 Long term (current) use of insulin; Z95.5 Presence of coronary angioplasty implant and graft
CPT/HCPCS: 36415; 80048; 83735; 85025; 96365; 96366; 96367; G0463; J1250; J2916

== ENCOUNTER → 2020-05-22 | Outpatient (CLI) | payer MEDICARE, BC ==
[2020-05-22] VITALS (11 sets, daily range): BP systolic 90–126; BP diastolic 49–63
[~2020-05-22] MED LIST changes: +CYANOCOBALAMIN (B-12) 1000 MCG/1 ML VIAL IM ONE; +CYANOCOBALAMIN (B-12) 1000 MCG/1 ML VIAL ONE
[2020-05-22 09:32] LABS: Basophils # (auto) 0 10 ^3/uL (0-0.2); Eosinophils # (auto) 0.1 10 ^3/uL (0-0.8); Hematocrit 26.1 % (41.0-53.0); Hemoglobin 7.9 g/dL (13.5-17.5); Lymphocytes # (auto) 0.3 10 ^3/uL (0.4-5.4); Mean Corpuscular Hgb Conc. 30.3 g/dL (32.0-36.0); Monocytes # (auto) 0.5 10 ^3/uL (0-1.3); Neutrophils # (auto) 7.4 10 ^3/uL (1.6-8.6)
[2020-05-22 09:34] LABS: Basophils % (auto) 0.5 % (0.0-2.0); Eosinophils % (auto) 1.2 % (0.0-7.0); Mean Corpuscular Hemoglobin 22.4 pg (28.0-32.0); Mean Corpuscular Volume 73.9 fL (80.0-100.0); Neutrophils % (auto) 89.3 % (37.0-80.0); Nucleated Red Blood Cells % 0.1 %; Platelet Count (auto) 205 10^3/uL (140-450); Red Blood Cells 3.54 10^6/uL (4.5-5.90); White Blood Cell 8.3 10^3/uL (4.4-10.8)
[2020-05-22 09:41] LABS: Albumin 3.6 g/dL (3.4-5.0); Potassium 3.8 mmol/L (3.5-5.1)
[2020-05-22 09:46] LABS: Red Cell Distribution Width 21.7 % (11.8-14.3)
[2020-05-22 10:33] LABS: BUN/Creatinine Ratio 19.7; Bilirubin, Total 0.4 mg/dL (0.2-1.0); Total Protein 7.5 g/dL (6.4-8.2)
== END | disposition home or self-care (01) ==
LOC: CHF HDHVI 08:38
PROVIDERS: ATTEND Internal Medicine Cardiovascular Disease
DX: I13.0 Hypertensive heart and chronic kidney disease with heart failure and stage 1 through stage 4 chronic kidney disease, or unspecified chronic kidney disease (principal); E11.22 Type 2 diabetes mellitus with diabetic chronic kidney disease; N18.30 Chronic kidney disease, stage 3 unspecified; I50.23 Acute on chronic systolic (congestive) heart failure; E61.1 Iron deficiency; D64.9 Anemia, unspecified; I48.91 Unspecified atrial fibrillation; R53.83 Other fatigue; I25.10 Atherosclerotic heart disease of native coronary artery without angina pectoris; I42.8 Other cardiomyopathies; I73.9 Peripheral vascular disease, unspecified; E11.21 Type 2 diabetes mellitus with diabetic nephropathy; E11.40 Type 2 diabetes mellitus with diabetic neuropathy, unspecified; Z95.810 Presence of automatic (implantable) cardiac defibrillator; Z95.5 Presence of coronary angioplasty implant and graft; Z95.1 Presence of aortocoronary bypass graft; Z79.4 Long term (current) use of insulin; Z79.899 Other long term (current) drug therapy
CPT/HCPCS: 36415; 80053; 83540; 85025; 96365; 96366; 96367; 96372; G0463; J1250; J2916; J3420

== ENCOUNTER → 2020-05-24 | Outpatient (CLI) | payer MEDICARE, BC ==
[2020-05-24] VITALS (10 sets, daily range): BP systolic 98–104; BP diastolic 47–57
[~2020-05-24] VITALS: Ht 30.5 cm; Wt 78.5 kg
[~2020-05-24] MED LIST changes: -CYANOCOBALAMIN (B-12) 1000 MCG/1 ML VIAL IM ONE; -CYANOCOBALAMIN (B-12) 1000 MCG/1 ML VIAL ONE
[2020-05-24 09:44] LABS: Basophils # (auto) 0.1 10 ^3/uL (0-0.2); Eosinophils # (auto) 0.1 10 ^3/uL (0-0.8); Hemoglobin 7.3 g/dL (13.5-17.5); Monocytes # (auto) 0.6 10 ^3/uL (0-1.3); Neutrophils % (auto) 84.7 % (37.0-80.0); Red Cell Distribution Width 21.6 % (11.8-14.3); White Blood Cell 7.1 10^3/uL (4.4-10.8)
[2020-05-24 09:46] LABS: Basophils % (auto) 0.7 % (0.0-2.0); Eosinophils % (auto) 1.2 % (0.0-7.0); Hematocrit 23.7 % (41.0-53.0); Lymphocytes # (auto) 0.4 10 ^3/uL (0.4-5.4); Lymphocytes % (auto) 5.2 % (10.0-50.0); Mean Corpuscular Hemoglobin 22.7 pg (28.0-32.0); Mean Corpuscular Hgb Conc. 30.9 g/dL (32.0-36.0); Mean Corpuscular Volume 73.6 fL (80.0-100.0); Monocytes % (auto) 8.2 % (0.0-12.0); Neutrophils # (auto) 6.1 10 ^3/uL (1.6-8.6); Platelet Count (auto) 182 10^3/uL (140-450); Red Blood Cells 3.22 10^6/uL (4.5-5.90)
[2020-05-24 10:08] LABS: Albumin 3.3 g/dL (3.4-5.0); Calcium 8.7 mg/dL (8.5-10.1); Magnesium 2.4 mg/dL (1.6-2.6); Potassium 3.6 mmol/L (3.5-5.1)
[2020-05-24 10:11] LABS: BUN/Creatinine Ratio 16.4; Bilirubin, Total 0.5 mg/dL (0.2-1.0); Total Protein 6.7 g/dL (6.4-8.2)
== END | disposition home or self-care (01) ==
LOC: CHF HDHVI 08:20
PROVIDERS: ATTEND Internal Medicine Cardiovascular Disease
DX: I13.0 Hypertensive heart and chronic kidney disease with heart failure and stage 1 through stage 4 chronic kidney disease, or unspecified chronic kidney disease (principal); E11.22 Type 2 diabetes mellitus with diabetic chronic kidney disease; I50.23 Acute on chronic systolic (congestive) heart failure; N18.30 Chronic kidney disease, stage 3 unspecified; D64.9 Anemia, unspecified; I48.91 Unspecified atrial fibrillation; I25.10 Atherosclerotic heart disease of native coronary artery without angina pectoris; I42.8 Other cardiomyopathies; I73.9 Peripheral vascular disease, unspecified; E11.21 Type 2 diabetes mellitus with diabetic nephropathy; E11.40 Type 2 diabetes mellitus with diabetic neuropathy, unspecified; Z95.1 Presence of aortocoronary bypass graft; Z79.4 Long term (current) use of insulin; Z95.810 Presence of automatic (implantable) cardiac defibrillator; Z95.5 Presence of coronary angioplasty implant and graft
CPT/HCPCS: 36415; 80053; 83540; 83735; 83880; 85025; 96365; 96366; 96367; G0463; J1250; J2916

== ENCOUNTER → 2020-05-29 | Outpatient (CLI) | payer MEDICARE, BC ==
[~2020-05-29] MED LIST changes: +POTASSIUM CHL 10 Meq TABLET PO ONE; +POTASSIUM CHL 20 Meq TABLET PO ONE
[2020-05-29 08:34] VITALS: BP 102/55
[2020-05-29 08:45] VITALS: BP 104/47
[2020-05-29 09:00] VITALS: BP 90/52
[2020-05-29 09:15] VITALS: BP 97/51
[2020-05-29 09:28] LABS: Eosinophils # (auto) 0 10 ^3/uL (0-0.8); Eosinophils % (auto) 0.6 % (0.0-7.0); Hemoglobin 8.1 g/dL (13.5-17.5); Lymphocytes # (auto) 0.3 10 ^3/uL (0.4-5.4); Monocytes # (auto) 0.6 10 ^3/uL (0-1.3)
[2020-05-29 09:30] LABS: Basophils # (auto) 0.1 10 ^3/uL (0-0.2); Basophils % (auto) 0.7 % (0.0-2.0); Hematocrit 26.3 % (41.0-53.0); Lymphocytes % (auto) 3.8 % (10.0-50.0); Mean Corpuscular Hemoglobin 22.7 pg (28.0-32.0); Mean Corpuscular Hgb Conc. 30.7 g/dL (32.0-36.0); Mean Corpuscular Volume 73.9 fL (80.0-100.0); Monocytes % (auto) 7.1 % (0.0-12.0); Neutrophils # (auto) 7.1 10 ^3/uL (1.6-8.6); Neutrophils % (auto) 87.8 % (37.0-80.0); Platelet Count (auto) 250 10^3/uL (140-450); Red Blood Cells 3.56 10^6/uL (4.5-5.90); White Blood Cell 8.1 10^3/uL (4.4-10.8)
[2020-05-29 09:33] LABS: Red Cell Distribution Width 23.6 % (11.8-14.3)
[2020-05-29 09:36] LABS: BUN/Creatinine Ratio 24.4; Calcium 8.7 mg/dL (8.5-10.1); Potassium 3.3 mmol/L (3.5-5.1)
[2020-05-29 09:45] VITALS: BP 93/53
[2020-05-29 13:35] VITALS: BP 108/55
== END | disposition home or self-care (01) ==
LOC: CHF HDHVI 08:49
PROVIDERS: ATTEND Internal Medicine Cardiovascular Disease
DX: I13.0 Hypertensive heart and chronic kidney disease with heart failure and stage 1 through stage 4 chronic kidney disease, or unspecified chronic kidney disease (principal); E11.22 Type 2 diabetes mellitus with diabetic chronic kidney disease; N18.30 Chronic kidney disease, stage 3 unspecified; I50.23 Acute on chronic systolic (congestive) heart failure; E55.9 Vitamin D deficiency, unspecified; D64.9 Anemia, unspecified; I25.10 Atherosclerotic heart disease of native coronary artery without angina pectoris; I48.91 Unspecified atrial fibrillation; I42.8 Other cardiomyopathies; I73.9 Peripheral vascular disease, unspecified; R53.83 Other fatigue; R06.02 Shortness of breath; E11.21 Type 2 diabetes mellitus with diabetic nephropathy; Z95.810 Presence of automatic (implantable) cardiac defibrillator; Z79.4 Long term (current) use of insulin; Z79.899 Other long term (current) drug therapy
CPT/HCPCS: 36415; 71046; 80048; 82306; 83880; 85025; 93306; 96365; 96366; 96367; G0463; J1250; J2916

== ENCOUNTER → 2020-05-31 | Outpatient (CLI) | payer MEDICARE, BC ==
[2020-05-31] VITALS (11 sets, daily range): BP systolic 91–119; BP diastolic 49–63
[~2020-05-31] VITALS: Ht 30.5 cm; Wt 77.7 kg
[~2020-05-31] MED LIST changes: -POTASSIUM CHL 10 Meq TABLET PO ONE; -POTASSIUM CHL 20 Meq TABLET PO ONE
[2020-05-31 11:51] LABS: Basophils # (auto) 0 10 ^3/uL (0-0.2); Eosinophils # (auto) 0.1 10 ^3/uL (0-0.8); Monocytes # (auto) 0.7 10 ^3/uL (0-1.3)
[2020-05-31 11:53] LABS: Basophils % (auto) 0.6 % (0.0-2.0); Eosinophils % (auto) 0.6 % (0.0-7.0); Hematocrit 28.1 % (41.0-53.0); Hemoglobin 8.4 g/dL (13.5-17.5); Lymphocytes # (auto) 0.3 10 ^3/uL (0.4-5.4); Lymphocytes % (auto) 3.7 % (10.0-50.0); Magnesium 2.6 mg/dL (1.6-2.6); Mean Corpuscular Hemoglobin 22.1 pg (28.0-32.0); Mean Corpuscular Hgb Conc. 30.1 g/dL (32.0-36.0); Mean Corpuscular Volume 73.5 fL (80.0-100.0); Neutrophils # (auto) 7.5 10 ^3/uL (1.6-8.6); Neutrophils % (auto) 87.1 % (37.0-80.0); Nucleated Red Blood Cells % 0.1 %; Platelet Count (auto) 264 10^3/uL (140-450); Potassium 3.9 mmol/L (3.5-5.1); Red Blood Cells 3.82 10^6/uL (4.5-5.90); Red Cell Distribution Width 23.5 % (11.8-14.3); White Blood Cell 8.7 10^3/uL (4.4-10.8)
== END | disposition home or self-care (01) ==
LOC: CHF HDHVI 08:34
PROVIDERS: ATTEND Internal Medicine Cardiovascular Disease
DX: I13.0 Hypertensive heart and chronic kidney disease with heart failure and stage 1 through stage 4 chronic kidney disease, or unspecified chronic kidney disease (principal); E11.22 Type 2 diabetes mellitus with diabetic chronic kidney disease; N18.30 Chronic kidney disease, stage 3 unspecified; I50.23 Acute on chronic systolic (congestive) heart failure; R53.83 Other fatigue; D64.9 Anemia, unspecified; I25.10 Atherosclerotic heart disease of native coronary artery without angina pectoris; I48.91 Unspecified atrial fibrillation; I42.8 Other cardiomyopathies; I73.9 Peripheral vascular disease, unspecified; E11.21 Type 2 diabetes mellitus with diabetic nephropathy; Z95.1 Presence of aortocoronary bypass graft; Z95.810 Presence of automatic (implantable) cardiac defibrillator; Z95.5 Presence of coronary angioplasty implant and graft; Z79.4 Long term (current) use of insulin; Z79.899 Other long term (current) drug therapy
CPT/HCPCS: 36415; 82565; 83735; 84132; 84520; 85025; 96365; 96366; 96367; G0463; J1250; J2916

== ENCOUNTER → 2020-06-05 | Outpatient (CLI) | payer MEDICARE, BC ==
[2020-06-05] VITALS (11 sets, daily range): BP systolic 84–112; BP diastolic 44–64
[~2020-06-05] MED LIST changes: +CYANOCOBALAMIN (B-12) 1000 MCG/1 ML VIAL IM ONE; +CYANOCOBALAMIN (B-12) 1000 MCG/1 ML VIAL ONE; +POTASSIUM CHL 10 Meq TABLET PO ONE
[2020-06-05 09:52] LABS: Basophils # (auto) 0 10 ^3/uL (0-0.2); Eosinophils # (auto) 0.1 10 ^3/uL (0-0.8); Hemoglobin 8.1 g/dL (13.5-17.5); Lymphocytes # (auto) 0.3 10 ^3/uL (0.4-5.4); Lymphocytes % (auto) 4.6 % (10.0-50.0); Neutrophils # (auto) 6.4 10 ^3/uL (1.6-8.6)
[2020-06-05 09:54] LABS: Basophils % (auto) 0.4 % (0.0-2.0); Eosinophils % (auto) 0.8 % (0.0-7.0); Hematocrit 26.5 % (41.0-53.0); Mean Corpuscular Hgb Conc. 30.7 g/dL (32.0-36.0); Mean Corpuscular Volume 74.8 fL (80.0-100.0); Monocytes # (auto) 0.6 10 ^3/uL (0-1.3); Monocytes % (auto) 8.1 % (0.0-12.0); Neutrophils % (auto) 86.1 % (37.0-80.0); Red Blood Cells 3.54 10^6/uL (4.5-5.90); White Blood Cell 7.4 10^3/uL (4.4-10.8)
[2020-06-05 10:01] LABS: Calcium 8.7 mg/dL (8.5-10.1); Potassium 3.5 mmol/L (3.5-5.1)
[2020-06-05 10:04] LABS: BUN/Creatinine Ratio 21.3
== END | disposition home or self-care (01) ==
LOC: CHF HDHVI 08:13
PROVIDERS: ATTEND Internal Medicine Cardiovascular Disease
DX: I13.0 Hypertensive heart and chronic kidney disease with heart failure and stage 1 through stage 4 chronic kidney disease, or unspecified chronic kidney disease (principal); I50.23 Acute on chronic systolic (congestive) heart failure; D64.9 Anemia, unspecified; R53.83 Other fatigue; I25.10 Atherosclerotic heart disease of native coronary artery without angina pectoris; N18.30 Chronic kidney disease, stage 3 unspecified; I48.91 Unspecified atrial fibrillation; I42.8 Other cardiomyopathies; I73.9 Peripheral vascular disease, unspecified; E11.21 Type 2 diabetes mellitus with diabetic nephropathy; Z95.1 Presence of aortocoronary bypass graft; Z95.810 Presence of automatic (implantable) cardiac defibrillator; Z95.5 Presence of coronary angioplasty implant and graft; Z79.4 Long term (current) use of insulin; Z79.899 Other long term (current) drug therapy
CPT/HCPCS: 36415; 80048; 83880; 85025; 96365; 96366; 96367; 96372; G0463; J1250; J2916; J3420

== ENCOUNTER → 2020-06-07 | Outpatient (CLI) | payer MEDICARE, BC ==
[~2020-06-07] MED LIST changes: -CYANOCOBALAMIN (B-12) 1000 MCG/1 ML VIAL IM ONE; -CYANOCOBALAMIN (B-12) 1000 MCG/1 ML VIAL ONE; -DOBUTamine 1000MCG/ML 250 ML IV ONE; +LIDOCAINE 1% (LOCAL ANESTH.) PF 5ml SDV ID ONE; -POTASSIUM CHL 10 Meq TABLET PO ONE; +SODIUM CHLOR 0.9% PF (SALINE LOCK) 10ML VIAL/SYR IV SCH; -SODIUM FERR GLUC 62.5MG/5ML 125 MG in SODIUM CHL 0.9% 100 ML IV ONE; -SODIUM FERRIC GLUC CPLEX 62.5MG/5ML VIAL IV ONE
== END | disposition home or self-care (01) ==
LOC: CHF HDHVI 09:25
PROVIDERS: ATTEND Internal Medicine Cardiovascular Disease
DX: Z45.2 Encounter for adjustment and management of vascular access device (principal); J98.11 Atelectasis; I70.0 Atherosclerosis of aorta; M85.80 Other specified disorders of bone density and structure, unspecified site; Z98.890 Other specified postprocedural states; Z95.0 Presence of cardiac pacemaker
CPT/HCPCS: 71045; 85610

== ENCOUNTER → 2020-06-07 | Outpatient (CLI) | payer MEDICARE, BC ==
[~2020-06-07] MED LIST changes: -LIDOCAINE 1% (LOCAL ANESTH.) PF 5ml SDV ID ONE; -SODIUM CHLOR 0.9% PF (SALINE LOCK) 10ML VIAL/SYR IV SCH
== END | disposition home or self-care (01) ==
LOC: CANPRECLI → XYW 09:36
PROVIDERS: ATTEND Internal Medicine Cardiovascular Disease
DX: Z45.2 Encounter for adjustment and management of vascular access device (principal); Z98.890 Other specified postprocedural states; Z79.899 Other long term (current) drug therapy; Z53.8 Procedure and treatment not carried out for other reasons
CPT/HCPCS: 36569; C1751; J7050

== ENCOUNTER → 2020-06-12 | Outpatient (CLI) | payer MEDICARE, BC ==
[2020-06-12] VITALS (13 sets, daily range): BP systolic 83–110; BP diastolic 45–57
[~2020-06-12] MED LIST changes: +DOBUTamine 1000MCG/ML 250 ML IV ONE; +FUROSEMIDE 20 MG/2 ML VIAL IV ONE; +FUROSEMIDE 20 MG/2 ML VIAL ONE; +POTASSIUM CHL 10 Meq TABLET PO ONE; +POTASSIUM CHL 20 Meq TABLET PO ONE; +SODIUM FERR GLUC 62.5MG/5ML 125 MG in SODIUM CHL 0.9% 100 ML IV ONE; +SODIUM FERRIC GLUC CPLEX 62.5MG/5ML VIAL IV ONE
[2020-06-12 08:49] LABS: Basophils # (auto) 0.1 10 ^3/uL (0-0.2); Basophils % (auto) 0.7 % (0.0-2.0); Eosinophils # (auto) 0.1 10 ^3/uL (0-0.8); Hemoglobin 7.3 g/dL (13.5-17.5); Lymphocytes # (auto) 0.3 10 ^3/uL (0.4-5.4); Neutrophils # (auto) 7.8 10 ^3/uL (1.6-8.6)
[2020-06-12 08:53] LABS: Eosinophils % (auto) 1.1 % (0.0-7.0); Hematocrit 23.7 % (41.0-53.0); Lymphocytes % (auto) 3.1 % (10.0-50.0); Mean Corpuscular Hemoglobin 23.5 pg (28.0-32.0); Mean Corpuscular Hgb Conc. 30.9 g/dL (32.0-36.0); Mean Corpuscular Volume 76.1 fL (80.0-100.0); Monocytes # (auto) 0.7 10 ^3/uL (0-1.3); Monocytes % (auto) 7.6 % (0.0-12.0); Neutrophils % (auto) 87.5 % (37.0-80.0); Red Blood Cells 3.12 10^6/uL (4.5-5.90); Red Cell Distribution Width 23.9 % (11.8-14.3); White Blood Cell 8.9 10^3/uL (4.4-10.8)
[2020-06-12 09:08] LABS: Albumin 3.2 g/dL (3.4-5.0); Calcium 8.2 mg/dL (8.5-10.1); Magnesium 2.3 mg/dL (1.6-2.6); Potassium 3.8 mmol/L (3.5-5.1)
[2020-06-12 09:11] LABS: BUN/Creatinine Ratio 20.2; Bilirubin, Total 0.5 mg/dL (0.2-1.0); Total Protein 6.6 g/dL (6.4-8.2)
== END | disposition home or self-care (01) ==
LOC: CHF HDHVI 08:16
PROVIDERS: ATTEND Internal Medicine Cardiovascular Disease
DX: I13.0 Hypertensive heart and chronic kidney disease with heart failure and stage 1 through stage 4 chronic kidney disease, or unspecified chronic kidney disease (principal); E11.22 Type 2 diabetes mellitus with diabetic chronic kidney disease; N18.30 Chronic kidney disease, stage 3 unspecified; I50.23 Acute on chronic systolic (congestive) heart failure; R53.83 Other fatigue; I25.10 Atherosclerotic heart disease of native coronary artery without angina pectoris; I42.8 Other cardiomyopathies; I48.91 Unspecified atrial fibrillation; I73.9 Peripheral vascular disease, unspecified; E11.21 Type 2 diabetes mellitus with diabetic nephropathy; Z95.1 Presence of aortocoronary bypass graft; Z95.810 Presence of automatic (implantable) cardiac defibrillator; Z95.5 Presence of coronary angioplasty implant and graft; Z79.4 Long term (current) use of insulin; Z79.899 Other long term (current) drug therapy
CPT/HCPCS: 36415; 80053; 83735; 83880; 85025; 96365; 96366; 96367; 96375; G0463; J1250; J1940; J2916

== ENCOUNTER → 2020-06-14 | Outpatient (CLI) | payer MEDICARE, BC ==
[2020-06-14] VITALS (7 sets, daily range): BP systolic 91–103; BP diastolic 46–55
[~2020-06-14] MED LIST changes: +BACITRACIN TOP OINT 1 UD PKG TOP ONE; -POTASSIUM CHL 10 Meq TABLET PO ONE; +metOLazone 5 MG TAB ONE; +metOLazone 5 MG TAB PO ONE
[2020-06-14 10:28] LABS: Basophils # (auto) 0 10 ^3/uL (0-0.2); Basophils % (auto) 0.7 % (0.0-2.0); Eosinophils # (auto) 0.2 10 ^3/uL (0-0.8); Hemoglobin 7.3 g/dL (13.5-17.5); Mean Corpuscular Hgb Conc. 30.2 g/dL (32.0-36.0); Monocytes # (auto) 0.5 10 ^3/uL (0-1.3); Neutrophils # (auto) 4.6 10 ^3/uL (1.6-8.6)
[2020-06-14 10:30] LABS: Eosinophils % (auto) 2.7 % (0.0-7.0); Hematocrit 24.1 % (41.0-53.0); Lymphocytes # (auto) 0.5 10 ^3/uL (0.4-5.4); Lymphocytes % (auto) 7.9 % (10.0-50.0); Mean Corpuscular Hemoglobin 22.9 pg (28.0-32.0); Mean Corpuscular Volume 75.8 fL (80.0-100.0); Monocytes % (auto) 8.7 % (0.0-12.0); Nucleated Red Blood Cells % 0.1 %; Platelet Count (auto) 196 10^3/uL (140-450); Potassium 3.9 mmol/L (3.5-5.1); Red Blood Cells 3.18 10^6/uL (4.5-5.90); White Blood Cell 5.8 10^3/uL (4.4-10.8)
[2020-06-14 11:04] LABS: Red Cell Distribution Width 24.4 % (11.8-14.3)
== END | disposition home or self-care (01) ==
LOC: CHF HDHVI 08:25
PROVIDERS: ATTEND Internal Medicine Cardiovascular Disease
DX: I13.0 Hypertensive heart and chronic kidney disease with heart failure and stage 1 through stage 4 chronic kidney disease, or unspecified chronic kidney disease (principal); E11.22 Type 2 diabetes mellitus with diabetic chronic kidney disease; N18.30 Chronic kidney disease, stage 3 unspecified; I50.23 Acute on chronic systolic (congestive) heart failure; D64.9 Anemia, unspecified; R53.83 Other fatigue; I25.10 Atherosclerotic heart disease of native coronary artery without angina pectoris; I48.91 Unspecified atrial fibrillation; I42.8 Other cardiomyopathies; I73.9 Peripheral vascular disease, unspecified; E11.21 Type 2 diabetes mellitus with diabetic nephropathy; E11.40 Type 2 diabetes mellitus with diabetic neuropathy, unspecified; Z79.4 Long term (current) use of insulin; Z95.1 Presence of aortocoronary bypass graft; Z95.810 Presence of automatic (implantable) cardiac defibrillator; Z95.5 Presence of coronary angioplasty implant and graft; Z79.899 Other long term (current) drug therapy
CPT/HCPCS: 36415; 82565; 84132; 84520; 85025; 96365; 96366; 96367; 96375; G0463; J1250; J1940; J2916

== ENCOUNTER → 2020-06-26 | Outpatient (CLI) | payer MEDICARE, BC ==
[~2020-06-26] VITALS: Ht 30.5 cm; Wt 77.4 kg
[~2020-06-26] MED LIST changes: +CYANOCOBALAMIN (B-12) 1000 MCG/1 ML VIAL IM ONE; +CYANOCOBALAMIN (B-12) 1000 MCG/1 ML VIAL ONE; -DOBUTamine 1000MCG/ML 250 ML IV ONE; -FUROSEMIDE 20 MG/2 ML VIAL IV ONE; -FUROSEMIDE 20 MG/2 ML VIAL ONE; +POTASSIUM CHL 10 Meq TABLET PO ONE; +TESTOSTERONE CYPIONATE 200 MG/ML 1ML VIAL IM ONE; -metOLazone 5 MG TAB ONE; -metOLazone 5 MG TAB PO ONE
[2020-06-26 09:09] LABS: Basophils # (auto) 0 10 ^3/uL (0-0.2); Hemoglobin 8.2 g/dL (13.5-17.5); Lymphocytes # (auto) 0.3 10 ^3/uL (0.4-5.4); Monocytes # (auto) 0.7 10 ^3/uL (0-1.3); Nucleated Red Blood Cells % 0.2 %; White Blood Cell 8.3 10^3/uL (4.4-10.8)
[2020-06-26 09:11] LABS: Basophils % (auto) 0.4 % (0.0-2.0); Eosinophils # (auto) 0 10 ^3/uL (0-0.8); Eosinophils % (auto) 0.4 % (0.0-7.0); Hematocrit 26.8 % (41.0-53.0); Lymphocytes % (auto) 3.5 % (10.0-50.0); Mean Corpuscular Hemoglobin 22.4 pg (28.0-32.0); Mean Corpuscular Hgb Conc. 30.6 g/dL (32.0-36.0); Mean Corpuscular Volume 73.1 fL (80.0-100.0); Monocytes % (auto) 8.2 % (0.0-12.0); Neutrophils # (auto) 7.3 10 ^3/uL (1.6-8.6); Neutrophils % (auto) 87.5 % (37.0-80.0); Platelet Count (auto) 229 10^3/uL (140-450); Red Blood Cells 3.67 10^6/uL (4.5-5.90)
[2020-06-26 09:18] LABS: Red Cell Distribution Width 22.7 % (11.8-14.3)
[2020-06-26 09:21] LABS: Albumin 3.2 g/dL (3.4-5.0); Calcium 8.4 mg/dL (8.5-10.1); Magnesium 2.6 mg/dL (1.6-2.6)
[2020-06-26 09:24] LABS: BUN/Creatinine Ratio 23.7; Bilirubin, Total 0.6 mg/dL (0.2-1.0); Total Protein 6.9 g/dL (6.4-8.2)
[2020-06-26 09:35] LABS: Potassium 2.7 mmol/L (3.5-5.1)
[2020-06-26 10:12] VITALS: BP 120/67
== END | disposition home or self-care (01) ==
LOC: CHF HDHVI 08:20
PROVIDERS: ATTEND Internal Medicine Cardiovascular Disease
DX: D64.9 Anemia, unspecified (principal); I13.0 Hypertensive heart and chronic kidney disease with heart failure and stage 1 through stage 4 chronic kidney disease, or unspecified chronic kidney disease; E11.22 Type 2 diabetes mellitus with diabetic chronic kidney disease; N18.30 Chronic kidney disease, stage 3 unspecified; I50.22 Chronic systolic (congestive) heart failure; I48.91 Unspecified atrial fibrillation; E29.1 Testicular hypofunction; R53.83 Other fatigue; I25.10 Atherosclerotic heart disease of native coronary artery without angina pectoris; I42.8 Other cardiomyopathies; I73.9 Peripheral vascular disease, unspecified; E11.21 Type 2 diabetes mellitus with diabetic nephropathy; E11.40 Type 2 diabetes mellitus with diabetic neuropathy, unspecified; Z95.1 Presence of aortocoronary bypass graft; Z79.4 Long term (current) use of insulin; Z95.810 Presence of automatic (implantable) cardiac defibrillator; Z79.899 Other long term (current) drug therapy
CPT/HCPCS: 36415; 80053; 83036; 83735; 84403; 85025; 96365; 96372; G0463; J1071; J2916; J3420

== ENCOUNTER → 2020-06-28 | Outpatient (CLI) | payer MEDICARE, BC ==
[2020-06-28] VITALS (9 sets, daily range): BP systolic 96–123; BP diastolic 62–66
[~2020-06-28] VITALS: Ht 33 cm; Wt 77.6 kg
[~2020-06-28] MED LIST changes: -BACITRACIN TOP OINT 1 UD PKG TOP ONE; -CYANOCOBALAMIN (B-12) 1000 MCG/1 ML VIAL IM ONE; -CYANOCOBALAMIN (B-12) 1000 MCG/1 ML VIAL ONE; +DOBUTamine 1000MCG/ML 250 ML IV ONE; -POTASSIUM CHL 10 Meq TABLET PO ONE; -POTASSIUM CHL 20 Meq TABLET PO ONE; -TESTOSTERONE CYPIONATE 200 MG/ML 1ML VIAL IM ONE
[2020-06-28 09:04] LABS: Basophils # (auto) 0 10 ^3/uL (0-0.2); Hemoglobin 8.1 g/dL (13.5-17.5); Lymphocytes # (auto) 0.4 10 ^3/uL (0.4-5.4)
[2020-06-28 09:05] LABS: Basophils % (auto) 0.3 % (0.0-2.0); Eosinophils # (auto) 0 10 ^3/uL (0-0.8); Eosinophils % (auto) 0.5 % (0.0-7.0); Hematocrit 26.8 % (41.0-53.0); Lymphocytes % (auto) 4.1 % (10.0-50.0); Mean Corpuscular Hemoglobin 22.4 pg (28.0-32.0); Mean Corpuscular Hgb Conc. 30.3 g/dL (32.0-36.0); Mean Corpuscular Volume 74.1 fL (80.0-100.0); Monocytes # (auto) 0.8 10 ^3/uL (0-1.3); Monocytes % (auto) 8.8 % (0.0-12.0); Neutrophils # (auto) 7.9 10 ^3/uL (1.6-8.6); Neutrophils % (auto) 86.3 % (37.0-80.0); Nucleated Red Blood Cells % 0.1 %; Platelet Count (auto) 230 10^3/uL (140-450); Red Blood Cells 3.62 10^6/uL (4.5-5.90); White Blood Cell 9.1 10^3/uL (4.4-10.8)
[2020-06-28 09:06] LABS: Red Cell Distribution Width 22.3 % (11.8-14.3)
[2020-06-28 09:41] LABS: Potassium 4.1 mmol/L (3.5-5.1)
== END | disposition home or self-care (01) ==
LOC: CHF HDHVI 08:25
PROVIDERS: ATTEND Internal Medicine Cardiovascular Disease
DX: D64.9 Anemia, unspecified (principal); R94.4 Abnormal results of kidney function studies; I13.0 Hypertensive heart and chronic kidney disease with heart failure and stage 1 through stage 4 chronic kidney disease, or unspecified chronic kidney disease; E11.22 Type 2 diabetes mellitus with diabetic chronic kidney disease; N18.30 Chronic kidney disease, stage 3 unspecified; I50.22 Chronic systolic (congestive) heart failure; R53.83 Other fatigue; I25.10 Atherosclerotic heart disease of native coronary artery without angina pectoris; I48.91 Unspecified atrial fibrillation; I73.9 Peripheral vascular disease, unspecified; I42.8 Other cardiomyopathies; E11.21 Type 2 diabetes mellitus with diabetic nephropathy; E11.40 Type 2 diabetes mellitus with diabetic neuropathy, unspecified; Z95.5 Presence of coronary angioplasty implant and graft; Z79.899 Other long term (current) drug therapy; Z95.1 Presence of aortocoronary bypass graft; Z79.4 Long term (current) use of insulin; Z95.810 Presence of automatic (implantable) cardiac defibrillator
CPT/HCPCS: 36415; 82565; 84132; 84520; 85025; 96365; 96366; 96367; G0463; J1250; J1642; J2916

== ENCOUNTER → 2020-07-03 | Outpatient (CLI) | payer MEDICARE, BC ==
[2020-07-03] VITALS (9 sets, daily range): BP systolic 96–124; BP diastolic 51–66
[~2020-07-03] MED LIST changes: +BACITRACIN TOP OINT 1 UD PKG TOP ONE; +TESTOSTERONE CYPIONATE 200 MG/ML 1ML VIAL IM ONE
[2020-07-03 11:29] LABS: Basophils # (auto) 0 10 ^3/uL (0-0.2); Eosinophils % (auto) 0.6 % (0.0-7.0); Lymphocytes # (auto) 0.3 10 ^3/uL (0.4-5.4); Neutrophils # (auto) 7.3 10 ^3/uL (1.6-8.6)
[2020-07-03 11:31] LABS: Basophils % (auto) 0.4 % (0.0-2.0); Eosinophils # (auto) 0.1 10 ^3/uL (0-0.8); Hemoglobin 8.2 g/dL (13.5-17.5); Lymphocytes % (auto) 3.2 % (10.0-50.0); Mean Corpuscular Hemoglobin 22.9 pg (28.0-32.0); Mean Corpuscular Hgb Conc. 30.3 g/dL (32.0-36.0); Mean Corpuscular Volume 75.7 fL (80.0-100.0); Monocytes # (auto) 0.6 10 ^3/uL (0-1.3); Monocytes % (auto) 7.6 % (0.0-12.0); Neutrophils % (auto) 88.2 % (37.0-80.0); Platelet Count (auto) 196 10^3/uL (140-450); Red Blood Cells 3.56 10^6/uL (4.5-5.90); White Blood Cell 8.3 10^3/uL (4.4-10.8)
[2020-07-03 11:34] LABS: Red Cell Distribution Width 23.8 % (11.8-14.3)
[2020-07-03 11:55] LABS: BUN/Creatinine Ratio 20.6; Calcium 8.2 mg/dL (8.5-10.1)
== END | disposition home or self-care (01) ==
LOC: CHF HDHVI 08:22
PROVIDERS: ATTEND Internal Medicine Cardiovascular Disease
DX: I13.0 Hypertensive heart and chronic kidney disease with heart failure and stage 1 through stage 4 chronic kidney disease, or unspecified chronic kidney disease (principal); E11.22 Type 2 diabetes mellitus with diabetic chronic kidney disease; I50.23 Acute on chronic systolic (congestive) heart failure; N18.30 Chronic kidney disease, stage 3 unspecified; E29.1 Testicular hypofunction; I25.10 Atherosclerotic heart disease of native coronary artery without angina pectoris; I48.91 Unspecified atrial fibrillation; E11.42 Type 2 diabetes mellitus with diabetic polyneuropathy; E11.51 Type 2 diabetes mellitus with diabetic peripheral angiopathy without gangrene; Z79.4 Long term (current) use of insulin; Z79.01 Long term (current) use of anticoagulants; Z95.810 Presence of automatic (implantable) cardiac defibrillator; Z95.5 Presence of coronary angioplasty implant and graft; Z79.899 Other long term (current) drug therapy
CPT/HCPCS: 36415; 80048; 85025; 96365; 96366; 96367; 96372; G0463; J1071; J1250; J1642; J2916

== ENCOUNTER → 2020-07-06 | Outpatient (CLI) | payer MEDICARE, BC ==
[2020-07-06] VITALS (8 sets, daily range): BP systolic 91–114; BP diastolic 47–69
[~2020-07-06] VITALS: Ht 30.5 cm; Wt 77.4 kg
[~2020-07-06] MED LIST changes: -BACITRACIN TOP OINT 1 UD PKG TOP ONE; +IOHEXOL 350 MG/ML 100ML IJ ONE; +SODIUM CHLORIDE 0.9% 100 ML IV ONE; -TESTOSTERONE CYPIONATE 200 MG/ML 1ML VIAL IM ONE
[2020-07-06 11:43] LABS: Eosinophils # (auto) 0 10 ^3/uL (0-0.8); Lymphocytes # (auto) 0.2 10 ^3/uL (0.4-5.4); Mean Corpuscular Volume 74.5 fL (80.0-100.0); Monocytes # (auto) 0.6 10 ^3/uL (0-1.3); Neutrophils # (auto) 7.6 10 ^3/uL (1.6-8.6)
[2020-07-06 11:45] LABS: Calcium 8.3 mg/dL (8.5-10.1); Magnesium 2.3 mg/dL (1.6-2.6); Potassium 3.4 mmol/L (3.5-5.1)
[2020-07-06 11:46] LABS: Basophils # (auto) 0.1 10 ^3/uL (0-0.2); Basophils % (auto) 0.7 % (0.0-2.0); Eosinophils % (auto) 0.4 % (0.0-7.0); Hemoglobin 8.7 g/dL (13.5-17.5); Lymphocytes % (auto) 2.6 % (10.0-50.0); Mean Corpuscular Hemoglobin 23.1 pg (28.0-32.0); Monocytes % (auto) 6.6 % (0.0-12.0); Neutrophils % (auto) 89.7 % (37.0-80.0); Platelet Count (auto) 190 10^3/uL (140-450); Red Blood Cells 3.76 10^6/uL (4.5-5.90); Red Cell Distribution Width 23.4 % (11.8-14.3); White Blood Cell 8.5 10^3/uL (4.4-10.8)
[2020-07-06 11:47] LABS: BUN/Creatinine Ratio 16.1
== END | disposition home or self-care (01) ==
LOC: Rad HDHVI 08:15
PROVIDERS: ATTEND Internal Medicine Cardiovascular Disease
DX: I13.0 Hypertensive heart and chronic kidney disease with heart failure and stage 1 through stage 4 chronic kidney disease, or unspecified chronic kidney disease (principal); E11.22 Type 2 diabetes mellitus with diabetic chronic kidney disease; I50.23 Acute on chronic systolic (congestive) heart failure; N18.30 Chronic kidney disease, stage 3 unspecified; I70.202 Unspecified atherosclerosis of native arteries of extremities, left leg; D64.9 Anemia, unspecified; I25.10 Atherosclerotic heart disease of native coronary artery without angina pectoris; E11.51 Type 2 diabetes mellitus with diabetic peripheral angiopathy without gangrene; E11.42 Type 2 diabetes mellitus with diabetic polyneuropathy; I48.91 Unspecified atrial fibrillation; Z95.5 Presence of coronary angioplasty implant and graft; Z95.1 Presence of aortocoronary bypass graft; Z79.01 Long term (current) use of anticoagulants; Z79.4 Long term (current) use of insulin
CPT/HCPCS: 36415; 75635; 80048; 83735; 85025; 96365; 96366; 96367; G0463; J1250; J1642; J2916; Q9967; 96361

== ENCOUNTER → 2020-07-10 | Outpatient (CLI) | payer MEDICARE, BC ==
[~2020-07-10] MED LIST changes: -IOHEXOL 350 MG/ML 100ML IJ ONE; +POTASSIUM CHL 10 Meq TABLET PO ONE; +POTASSIUM CHL 20 Meq TABLET PO ONE; -SODIUM CHLORIDE 0.9% 100 ML IV ONE; +SODIUM CHLORIDE 0.9% 250 ML IV ONE; +ceFAZolin 1GM/50ML 50 ML IV ONE
[2020-07-10 09:16] LABS: Potassium 3.1 mmol/L (3.5-5.1)
[2020-07-10 09:18] LABS: Basophils # (auto) 0 10 ^3/uL (0-0.2); Eosinophils # (auto) 0 10 ^3/uL (0-0.8); Eosinophils % (auto) 0.1 % (0.0-7.0); Lymphocytes # (auto) 0.2 10 ^3/uL (0.4-5.4); Neutrophils # (auto) 10.2 10 ^3/uL (1.6-8.6)
[2020-07-10 09:21] LABS: Basophils % (auto) 0.2 % (0.0-2.0); Hematocrit 27.1 % (41.0-53.0); Hemoglobin 8.3 g/dL (13.5-17.5); Lymphocytes % (auto) 1.8 % (10.0-50.0); Mean Corpuscular Hemoglobin 22.5 pg (28.0-32.0); Mean Corpuscular Hgb Conc. 30.5 g/dL (32.0-36.0); Mean Corpuscular Volume 73.8 fL (80.0-100.0); Monocytes # (auto) 0.6 10 ^3/uL (0-1.3); Monocytes % (auto) 5.7 % (0.0-12.0); Neutrophils % (auto) 92.2 % (37.0-80.0); Platelet Count (auto) 179 10^3/uL (140-450); Red Blood Cells 3.67 10^6/uL (4.5-5.90); Red Cell Distribution Width 23.6 % (11.8-14.3)
[2020-07-10 09:48] VITALS: BP 113/64
[2020-07-10 11:41] VITALS: BP 96/55
== END | disposition home or self-care (01) ==
LOC: CHF HDHVI 08:25
PROVIDERS: ATTEND Internal Medicine Cardiovascular Disease
DX: D64.9 Anemia, unspecified (principal); I13.0 Hypertensive heart and chronic kidney disease with heart failure and stage 1 through stage 4 chronic kidney disease, or unspecified chronic kidney disease; E11.22 Type 2 diabetes mellitus with diabetic chronic kidney disease; I50.22 Chronic systolic (congestive) heart failure; N18.30 Chronic kidney disease, stage 3 unspecified; E87.1 Hypo-osmolality and hyponatremia; R94.4 Abnormal results of kidney function studies; D51.9 Vitamin B12 deficiency anemia, unspecified; I25.10 Atherosclerotic heart disease of native coronary artery without angina pectoris; E11.51 Type 2 diabetes mellitus with diabetic peripheral angiopathy without gangrene; E11.42 Type 2 diabetes mellitus with diabetic polyneuropathy; I48.91 Unspecified atrial fibrillation; Z79.4 Long term (current) use of insulin; Z95.810 Presence of automatic (implantable) cardiac defibrillator
CPT/HCPCS: 36415; 82565; 84132; 84295; 84520; 85025; 96365; 96367; G0463; J0690; J1642; J2916; J7050; 96361

== ENCOUNTER → 2020-07-12 | Outpatient (CLI) | payer MEDICARE, BC ==
[~2020-07-12] MED LIST changes: +BACITRACIN TOP OINT 1 UD PKG TOP ONE; -DOBUTamine 1000MCG/ML 250 ML IV ONE; +IRON SUCROSE 20 mg/ml 10ml VIAL IV ONE; +IRON SUCROSE COMPLEX 200 MG in SODIUM CHL 0.9% 100 ML IV ONE; -POTASSIUM CHL 10 Meq TABLET PO ONE; -POTASSIUM CHL 20 Meq TABLET PO ONE; -SODIUM FERR GLUC 62.5MG/5ML 125 MG in SODIUM CHL 0.9% 100 ML IV ONE; -SODIUM FERRIC GLUC CPLEX 62.5MG/5ML VIAL IV ONE; -ceFAZolin 1GM/50ML 50 ML IV ONE
[2020-07-12 09:20] VITALS: BP 98/51
[2020-07-12 10:45] VITALS: BP 100/56
[2020-07-12 11:26] LABS: Basophils # (auto) 0 10 ^3/uL (0-0.2); Basophils % (auto) 0.5 % (0.0-2.0); Eosinophils # (auto) 0 10 ^3/uL (0-0.8); Mean Corpuscular Volume 74.7 fL (80.0-100.0); White Blood Cell 6.8 10^3/uL (4.4-10.8)
[2020-07-12 11:28] LABS: Eosinophils % (auto) 0.5 % (0.0-7.0); Hemoglobin 8.6 g/dL (13.5-17.5); Lymphocytes # (auto) 0.4 10 ^3/uL (0.4-5.4); Lymphocytes % (auto) 5.4 % (10.0-50.0); Mean Corpuscular Hgb Conc. 30.8 g/dL (32.0-36.0); Monocytes # (auto) 0.5 10 ^3/uL (0-1.3); Monocytes % (auto) 7.1 % (0.0-12.0); Neutrophils # (auto) 5.8 10 ^3/uL (1.6-8.6); Neutrophils % (auto) 86.5 % (37.0-80.0); Platelet Count (auto) 193 10^3/uL (140-450); Red Blood Cells 3.75 10^6/uL (4.5-5.90)
[2020-07-12 11:31] LABS: Red Cell Distribution Width 23.6 % (11.8-14.3)
[2020-07-12 11:42] LABS: Potassium 3.6 mmol/L (3.5-5.1)
[2020-07-12 13:05] LABS: % Iron Saturation 8.7 % (20-55)
== END | disposition home or self-care (01) ==
LOC: CHF HDHVI 08:17
PROVIDERS: ATTEND Internal Medicine Cardiovascular Disease
DX: D64.9 Anemia, unspecified (principal); I13.0 Hypertensive heart and chronic kidney disease with heart failure and stage 1 through stage 4 chronic kidney disease, or unspecified chronic kidney disease; E11.22 Type 2 diabetes mellitus with diabetic chronic kidney disease; I50.22 Chronic systolic (congestive) heart failure; N18.30 Chronic kidney disease, stage 3 unspecified; D51.9 Vitamin B12 deficiency anemia, unspecified; R94.4 Abnormal results of kidney function studies; I25.10 Atherosclerotic heart disease of native coronary artery without angina pectoris; E11.42 Type 2 diabetes mellitus with diabetic polyneuropathy; E11.51 Type 2 diabetes mellitus with diabetic peripheral angiopathy without gangrene; I48.91 Unspecified atrial fibrillation; Z79.4 Long term (current) use of insulin; Z95.810 Presence of automatic (implantable) cardiac defibrillator; Z79.01 Long term (current) use of anticoagulants; Z79.899 Other long term (current) drug therapy
CPT/HCPCS: 36415; 82565; 83540; 83550; 84132; 84520; 85025; 96361; 96365; G0463; J1642; J1756; J7050

== ENCOUNTER → 2020-07-17 | Outpatient (CLI) | payer MEDICARE, BC ==
[~2020-07-17] MED LIST changes: -BACITRACIN TOP OINT 1 UD PKG TOP ONE; +CYANOCOBALAMIN (B-12) 1000 MCG/1 ML VIAL IM ONE; +CYANOCOBALAMIN (B-12) 1000 MCG/1 ML VIAL ONE; -SODIUM CHLORIDE 0.9% 250 ML IV ONE
[2020-07-17 09:45] VITALS: BP 100/64
[2020-07-17 10:50] VITALS: BP 116/54
[2020-07-17 11:29] LABS: Eosinophils # (auto) 0.1 10 ^3/uL (0-0.8); Lymphocytes # (auto) 0.3 10 ^3/uL (0.4-5.4); White Blood Cell 8.5 10^3/uL (4.4-10.8)
[2020-07-17 11:32] LABS: Basophils # (auto) 0 10 ^3/uL (0-0.2); Basophils % (auto) 0.5 % (0.0-2.0); Eosinophils % (auto) 0.6 % (0.0-7.0); Hematocrit 30.1 % (41.0-53.0); Hemoglobin 9.1 g/dL (13.5-17.5); Lymphocytes % (auto) 3.4 % (10.0-50.0); Mean Corpuscular Hgb Conc. 30.3 g/dL (32.0-36.0); Mean Corpuscular Volume 75.9 fL (80.0-100.0); Monocytes # (auto) 0.7 10 ^3/uL (0-1.3); Monocytes % (auto) 7.9 % (0.0-12.0); Neutrophils # (auto) 7.4 10 ^3/uL (1.6-8.6); Neutrophils % (auto) 87.6 % (37.0-80.0); Platelet Count (auto) 240 10^3/uL (140-450); Red Blood Cells 3.97 10^6/uL (4.5-5.90)
[2020-07-17 11:35] LABS: Red Cell Distribution Width 24.4 % (11.8-14.3)
[2020-07-17 11:39] LABS: Potassium 3.6 mmol/L (3.5-5.1)
[2020-07-17 11:46] LABS: Magnesium 2.4 mg/dL (1.6-2.6)
[2020-07-17 11:49] LABS: % Iron Saturation 10.5 % (20-55)
== END | disposition home or self-care (01) ==
LOC: CHF HDHVI 08:27
PROVIDERS: ATTEND Internal Medicine Cardiovascular Disease
DX: D64.9 Anemia, unspecified (principal); I13.0 Hypertensive heart and chronic kidney disease with heart failure and stage 1 through stage 4 chronic kidney disease, or unspecified chronic kidney disease; E11.22 Type 2 diabetes mellitus with diabetic chronic kidney disease; I50.23 Acute on chronic systolic (congestive) heart failure; N18.30 Chronic kidney disease, stage 3 unspecified; R53.83 Other fatigue; I25.10 Atherosclerotic heart disease of native coronary artery without angina pectoris; I48.91 Unspecified atrial fibrillation; I42.9 Cardiomyopathy, unspecified; E11.42 Type 2 diabetes mellitus with diabetic polyneuropathy; E11.51 Type 2 diabetes mellitus with diabetic peripheral angiopathy without gangrene; Z79.01 Long term (current) use of anticoagulants; Z79.4 Long term (current) use of insulin; Z79.899 Other long term (current) drug therapy; Z95.810 Presence of automatic (implantable) cardiac defibrillator; Z95.5 Presence of coronary angioplasty implant and graft
CPT/HCPCS: 36415; 80048; 83540; 83550; 83735; 85025; 96365; 96372; G0463; J1642; J1756; J3420

== ENCOUNTER → 2020-07-19 | Outpatient (CLI) | payer MEDICARE, BC ==
[~2020-07-19] MED LIST changes: -CYANOCOBALAMIN (B-12) 1000 MCG/1 ML VIAL IM ONE; -CYANOCOBALAMIN (B-12) 1000 MCG/1 ML VIAL ONE; -IRON SUCROSE 20 mg/ml 10ml VIAL IV ONE; -IRON SUCROSE COMPLEX 200 MG in SODIUM CHL 0.9% 100 ML IV ONE
[2020-07-19] MEDS: IRON SUCROSE COMPLEX 200 MG in SODIUM CHL 0.9% 100 ML IV ONE (08:30)
[2020-07-19] MEDS: IRON SUCROSE 20 mg/ml 10ml VIAL IV ONE (08:35)
[2020-07-19] MEDS: TESTOSTERONE CYPIONATE 200 MG/ML 1ML VIAL IM ONE ×2 (08:35→09:40)
[2020-07-19 09:48] VITALS: BP 139/58
[2020-07-19 11:28] LABS: Potassium 3.2 mmol/L (3.5-5.1)
[2020-07-19 11:29] LABS: Basophils # (auto) 0 10 ^3/uL (0-0.2); Eosinophils # (auto) 0 10 ^3/uL (0-0.8); Eosinophils % (auto) 0.1 % (0.0-7.0); Lymphocytes # (auto) 0.2 10 ^3/uL (0.4-5.4); Monocytes # (auto) 0.6 10 ^3/uL (0-1.3); Red Blood Cells 3.79 10^6/uL (4.5-5.90)
[2020-07-19 11:31] LABS: Basophils % (auto) 0.4 % (0.0-2.0); Hematocrit 28.8 % (41.0-53.0); Lymphocytes % (auto) 1.7 % (10.0-50.0); Mean Corpuscular Hemoglobin 23.7 pg (28.0-32.0); Mean Corpuscular Hgb Conc. 31.2 g/dL (32.0-36.0); Mean Corpuscular Volume 75.8 fL (80.0-100.0); Monocytes % (auto) 5.3 % (0.0-12.0); Neutrophils # (auto) 9.9 10 ^3/uL (1.6-8.6); Neutrophils % (auto) 92.5 % (37.0-80.0); Platelet Count (auto) 197 10^3/uL (140-450); White Blood Cell 10.7 10^3/uL (4.4-10.8)
[2020-07-19 11:40] LABS: Red Cell Distribution Width 24.2 % (11.8-14.3)
== END | disposition home or self-care (01) ==
LOC: CHF HDHVI 08:16
PROVIDERS: ATTEND Internal Medicine Cardiovascular Disease
DX: D51.9 Vitamin B12 deficiency anemia, unspecified (principal); E29.1 Testicular hypofunction; I13.0 Hypertensive heart and chronic kidney disease with heart failure and stage 1 through stage 4 chronic kidney disease, or unspecified chronic kidney disease; E11.22 Type 2 diabetes mellitus with diabetic chronic kidney disease; I50.23 Acute on chronic systolic (congestive) heart failure; N18.30 Chronic kidney disease, stage 3 unspecified; I42.8 Other cardiomyopathies; I25.10 Atherosclerotic heart disease of native coronary artery without angina pectoris; I48.91 Unspecified atrial fibrillation; E11.42 Type 2 diabetes mellitus with diabetic polyneuropathy; E11.51 Type 2 diabetes mellitus with diabetic peripheral angiopathy without gangrene; Z79.4 Long term (current) use of insulin; Z79.01 Long term (current) use of anticoagulants; Z79.899 Other long term (current) drug therapy; Z95.810 Presence of automatic (implantable) cardiac defibrillator; Z95.5 Presence of coronary angioplasty implant and graft
CPT/HCPCS: 36415; 82565; 84132; 84520; 85025; 96365; 96372; G0463; J1071; J1642; J1756

== ENCOUNTER → 2020-07-24 | Outpatient (CLI) | payer MEDICARE, BC ==
[~2020-07-24] MED LIST changes: +BACITRACIN TOP OINT 1 UD PKG TOP ONE; +CYANOCOBALAMIN (B-12) 1000 MCG/1 ML VIAL IM ONE; +CYANOCOBALAMIN (B-12) 1000 MCG/1 ML VIAL ONE; +FUROSEMIDE 20 MG/2 ML VIAL IV ONE; +FUROSEMIDE 20 MG/2 ML VIAL ONE; +IRON SUCROSE 20 mg/ml 10ml VIAL IV ONE; +IRON SUCROSE COMPLEX 200 MG in SODIUM CHL 0.9% 100 ML IV ONE; +POTASSIUM CHL 10 Meq TABLET PO ONE; +POTASSIUM CHL 20 Meq TABLET PO ONE; +SODIUM CHLORIDE 0.9% 250 ML IV ONE
[2020-07-24 08:20] VITALS: BP 116/61
[2020-07-24 09:29] LABS: Basophils # (auto) 0 10 ^3/uL (0-0.2); Eosinophils # (auto) 0 10 ^3/uL (0-0.8); Hemoglobin 8.6 g/dL (13.5-17.5); Lymphocytes # (auto) 0.2 10 ^3/uL (0.4-5.4); Lymphocytes % (auto) 1.7 % (10.0-50.0); Monocytes # (auto) 0.6 10 ^3/uL (0-1.3)
[2020-07-24 09:30] LABS: Basophils % (auto) 0.3 % (0.0-2.0); Hematocrit 27.9 % (41.0-53.0); Mean Corpuscular Hemoglobin 23.6 pg (28.0-32.0); Mean Corpuscular Hgb Conc. 30.7 g/dL (32.0-36.0); Mean Corpuscular Volume 76.8 fL (80.0-100.0); Monocytes % (auto) 5.4 % (0.0-12.0); Neutrophils # (auto) 10.8 10 ^3/uL (1.6-8.6); Neutrophils % (auto) 92.6 % (37.0-80.0); Platelet Count (auto) 146 10^3/uL (140-450); Red Blood Cells 3.63 10^6/uL (4.5-5.90); White Blood Cell 11.7 10^3/uL (4.4-10.8)
[2020-07-24 09:38] LABS: BUN/Creatinine Ratio 14.4; Calcium 8.2 mg/dL (8.5-10.1); Magnesium 2.2 mg/dL (1.6-2.6); Potassium 3.8 mmol/L (3.5-5.1)
[2020-07-24 09:45] LABS: Red Cell Distribution Width 24.3 % (11.8-14.3)
[2020-07-24 10:00] VITALS: BP 147/85
[2020-07-24 11:10] VITALS: BP 107/57
[2020-07-24 12:17] VITALS: BP 115/61
== END | disposition home or self-care (01) ==
LOC: Rad HDHVI 08:24
PROVIDERS: ATTEND Internal Medicine Cardiovascular Disease
DX: D51.9 Vitamin B12 deficiency anemia, unspecified (principal); I13.0 Hypertensive heart and chronic kidney disease with heart failure and stage 1 through stage 4 chronic kidney disease, or unspecified chronic kidney disease; E11.22 Type 2 diabetes mellitus with diabetic chronic kidney disease; I50.23 Acute on chronic systolic (congestive) heart failure; N18.30 Chronic kidney disease, stage 3 unspecified; I42.8 Other cardiomyopathies; I25.10 Atherosclerotic heart disease of native coronary artery without angina pectoris; I48.91 Unspecified atrial fibrillation; E11.42 Type 2 diabetes mellitus with diabetic polyneuropathy; E11.51 Type 2 diabetes mellitus with diabetic peripheral angiopathy without gangrene; Z79.4 Long term (current) use of insulin; Z79.01 Long term (current) use of anticoagulants; Z79.899 Other long term (current) drug therapy; Z95.810 Presence of automatic (implantable) cardiac defibrillator; Z95.5 Presence of coronary angioplasty implant and graft
CPT/HCPCS: 36415; 71046; 80048; 83735; 83880; 85025; 96361; 96365; 96372; 96375; G0463; J1642; J1756; J1940; J3420; J7050

== ENCOUNTER → 2020-07-25 | Outpatient (CLI) | payer MEDICARE, BC ==
[~2020-07-25] MED LIST changes: -BACITRACIN TOP OINT 1 UD PKG TOP ONE; -CYANOCOBALAMIN (B-12) 1000 MCG/1 ML VIAL IM ONE; -CYANOCOBALAMIN (B-12) 1000 MCG/1 ML VIAL ONE; -FUROSEMIDE 20 MG/2 ML VIAL IV ONE; -FUROSEMIDE 20 MG/2 ML VIAL ONE; -IRON SUCROSE 20 mg/ml 10ml VIAL IV ONE; -IRON SUCROSE COMPLEX 200 MG in SODIUM CHL 0.9% 100 ML IV ONE; -POTASSIUM CHL 10 Meq TABLET PO ONE; -POTASSIUM CHL 20 Meq TABLET PO ONE; -SODIUM CHLORIDE 0.9% 250 ML IV ONE
== END | disposition home or self-care (01) ==
LOC: LAB 13:12
PROVIDERS: ATTEND Internal Medicine Gastroenterology
DX: D64.9 Anemia, unspecified (principal)
CPT/HCPCS: 82274

== ENCOUNTER → 2020-07-31 | Outpatient (CLI) | payer MEDICARE, BC ==
[~2020-07-31] MED LIST changes: +BACITRACIN TOP OINT 1 UD PKG TOP ONE; +IRON SUCROSE 20 mg/ml 10ml VIAL IV ONE; +IRON SUCROSE COMPLEX 200 MG in SODIUM CHL 0.9% 100 ML IV ONE
[2020-07-31 08:50] VITALS: BP 109/58
[2020-07-31 08:54] LABS: Eosinophils # (auto) 0 10 ^3/uL (0-0.8); Eosinophils % (auto) 0.4 % (0.0-7.0); Lymphocytes # (auto) 0.3 10 ^3/uL (0.4-5.4); Monocytes # (auto) 0.4 10 ^3/uL (0-1.3); Nucleated Red Blood Cells % 0.1 %
[2020-07-31 08:56] LABS: Basophils # (auto) 0.1 10 ^3/uL (0-0.2); Basophils % (auto) 0.7 % (0.0-2.0); Hematocrit 31.4 % (41.0-53.0); Hemoglobin 10.1 g/dL (13.5-17.5); Lymphocytes % (auto) 2.5 % (10.0-50.0); Mean Corpuscular Hemoglobin 24.9 pg (28.0-32.0); Mean Corpuscular Hgb Conc. 32.3 g/dL (32.0-36.0); Monocytes % (auto) 4.3 % (0.0-12.0); Neutrophils # (auto) 9.1 10 ^3/uL (1.6-8.6); Neutrophils % (auto) 92.1 % (37.0-80.0); Platelet Count (auto) 170 10^3/uL (140-450); Red Blood Cells 4.08 10^6/uL (4.5-5.90); White Blood Cell 9.9 10^3/uL (4.4-10.8)
[2020-07-31 09:00] LABS: Red Cell Distribution Width 23.9 % (11.8-14.3)
[2020-07-31 09:09] LABS: Albumin 3.1 g/dL (3.4-5.0); BUN/Creatinine Ratio 23.2; Calcium 8.7 mg/dL (8.5-10.1); Potassium 3.9 mmol/L (3.5-5.1)
[2020-07-31 09:11] LABS: Bilirubin, Total 0.5 mg/dL (0.2-1.0); Total Protein 7.2 g/dL (6.4-8.2)
[2020-07-31 11:12] VITALS: BP 101/52
== END | disposition home or self-care (01) ==
LOC: CHF HDHVI 08:15
PROVIDERS: ATTEND Internal Medicine Cardiovascular Disease
DX: D64.9 Anemia, unspecified (principal); I13.0 Hypertensive heart and chronic kidney disease with heart failure and stage 1 through stage 4 chronic kidney disease, or unspecified chronic kidney disease; E11.22 Type 2 diabetes mellitus with diabetic chronic kidney disease; I50.23 Acute on chronic systolic (congestive) heart failure; N18.30 Chronic kidney disease, stage 3 unspecified; I25.10 Atherosclerotic heart disease of native coronary artery without angina pectoris; I42.8 Other cardiomyopathies; I48.91 Unspecified atrial fibrillation; E11.51 Type 2 diabetes mellitus with diabetic peripheral angiopathy without gangrene; E11.42 Type 2 diabetes mellitus with diabetic polyneuropathy; Z79.01 Long term (current) use of anticoagulants; Z79.4 Long term (current) use of insulin; Z79.899 Other long term (current) drug therapy; Z95.810 Presence of automatic (implantable) cardiac defibrillator; Z95.5 Presence of coronary angioplasty implant and graft
CPT/HCPCS: 36415; 80053; 83880; 85025; 96365; G0463; J1642; J1756

== ENCOUNTER → 2020-08-13 | Outpatient (CLI) | payer MEDICARE, BC ==
[~2020-08-13] MED LIST changes: +CYANOCOBALAMIN (B-12) 1000 MCG/1 ML VIAL IM ONE; +CYANOCOBALAMIN (B-12) 1000 MCG/1 ML VIAL ONE; -IRON SUCROSE 20 mg/ml 10ml VIAL IV ONE; -IRON SUCROSE COMPLEX 200 MG in SODIUM CHL 0.9% 100 ML IV ONE; +MULTIPLE VIT 10 ML IV ONE; +MVI in SODIUM CHLORIDE 0.9% 500 ML IVB ONE; +SODIUM CHLORIDE 0.9% 500 ML IV ONE; +TESTOSTERONE CYPIONATE 200 MG/ML 1ML VIAL IM ONE
[2020-08-13 11:00] VITALS: BP 79/48
[2020-08-13 11:06] LABS: Eosinophils # (auto) 0 10 ^3/uL (0-0.8); Lymphocytes # (auto) 0.3 10 ^3/uL (0.4-5.4); Mean Corpuscular Hemoglobin 24.2 pg (28.0-32.0); Mean Corpuscular Hgb Conc. 31.3 g/dL (32.0-36.0)
[2020-08-13 11:09] LABS: Basophils # (auto) 0.1 10 ^3/uL (0-0.2); Basophils % (auto) 0.7 % (0.0-2.0); Eosinophils % (auto) 0.3 % (0.0-7.0); Hematocrit 31.9 % (41.0-53.0); Lymphocytes % (auto) 3.1 % (10.0-50.0); Mean Corpuscular Volume 77.1 fL (80.0-100.0); Monocytes # (auto) 0.5 10 ^3/uL (0-1.3); Monocytes % (auto) 5.9 % (0.0-12.0); Platelet Count (auto) 131 10^3/uL (140-450); Red Blood Cells 4.13 10^6/uL (4.5-5.90); Red Cell Distribution Width 22.5 % (11.8-14.3); White Blood Cell 8.8 10^3/uL (4.4-10.8)
[2020-08-13 11:15] VITALS: BP 91/47
[2020-08-13 11:17] LABS: Albumin 2.6 g/dL (3.4-5.0); Calcium 8.2 mg/dL (8.5-10.1); Magnesium 2.5 mg/dL (1.6-2.6); Potassium 4.2 mmol/L (3.5-5.1)
[2020-08-13 11:21] LABS: Bilirubin, Total 0.7 mg/dL (0.2-1.0); Total Protein 6.8 g/dL (6.4-8.2)
[2020-08-13 11:45] VITALS: BP 103/51
[2020-08-13 15:00] VITALS: BP 110/54
[2020-08-13 16:03] VITALS: BP 100/50
== END | disposition home or self-care (01) ==
LOC: CHF HDHVI 09:55
PROVIDERS: ATTEND Internal Medicine Cardiovascular Disease
DX: I13.0 Hypertensive heart and chronic kidney disease with heart failure and stage 1 through stage 4 chronic kidney disease, or unspecified chronic kidney disease (principal); E11.22 Type 2 diabetes mellitus with diabetic chronic kidney disease; I50.23 Acute on chronic systolic (congestive) heart failure; N18.30 Chronic kidney disease, stage 3 unspecified; I25.10 Atherosclerotic heart disease of native coronary artery without angina pectoris; E29.1 Testicular hypofunction; I48.91 Unspecified atrial fibrillation; E11.42 Type 2 diabetes mellitus with diabetic polyneuropathy; E11.51 Type 2 diabetes mellitus with diabetic peripheral angiopathy without gangrene; Z79.01 Long term (current) use of anticoagulants; Z79.4 Long term (current) use of insulin; Z79.899 Other long term (current) drug therapy; Z95.810 Presence of automatic (implantable) cardiac defibrillator
CPT/HCPCS: 36415; 80053; 80162; 83735; 85025; 96361; 96365; 96366; 96372; G0463; J1071; J1642; J3411; J3420; J3475; J7040